=== PATIENT | female | born 1935 | race Caucasian/White ===

== ENCOUNTER 2018-08-14 16:20 | Inpatient (IN) | payer OTHER, MEDICARE ==
--- NOTE | 2018-08-14 16:41 | PDOC ---
Rapid Medical Evaluation Time Seen by Provider: 08/14/18 16:35 Medical Evaluation: I have performed a brief in-person evaluation of this patient. The patient presents with a chief complaint of: SOB. Was discharged from [facility] last week for COPD/CHF/cirrhosis of the liver. SHe states she hasn't gotten any better. She admits to swollen legs and abd distention. Pertinent physical exam findings: abdominal distention. Patient appears jaudice and pale. 2+ pitting edema b/l LEs. Slight expiratory wheezing at bases. I have ordered the following: labs, CXR The patient will proceed to the ED for further evaluation. Discharge Disposition - Diagnosis Shortness of breath - Referrals Referrals: Bhupinder Arroyo MD [Primary Care Provider] - - Patient Instructions - Post Discharge Activity
[2018-08-14] MEDS ORDERED: ALBUTEROL SO4 2.5/IPRATROPIUM 0.5 INH SOL 3 ML VIAL.NEB. NEB ONE ×2 (17:05→17:42)
[2018-08-14] MEDS: ALBUTEROL SO4 2.5/IPRATROPIUM 0.5 INH SOL 3 ML VIAL.NEB. NEB SCH ×2 (17:07→18:00)
[2018-08-14 17:24] LABS: BASO % 0.2 % (0-2.0); EOS % 0.1 % (0-4.5); HEMATOCRIT 37.1 % (32.4-45.2); HEMOGLOBIN 11.8 GM/dL (10.7-15.3); LYMPH % 5.7 % (8-40); MCH 27.4 pg (25.7-33.7); MCHC 31.9 g/dl (32.0-36.0); MEAN CELL VOLUME 85.9 fl (80-96); MONO % 2.3 % (3.8-10.2); NEUT % 91.7 % (42.8-82.8); RBC 4.32 M/mm3 (3.60-5.2); RDW 18.2 % (11.6-15.6); WHITE BLOOD COUNT 12.5 K/mm3 (4.0-10.0)
[2018-08-14 17:42] LABS: ALBUMIN 2.9 g/dl (3.4-5.0); ALK PHOS 128 U/L (45-117); ANION GAP 6 MMOL/L (8-16); BLOOD UREA NITROGEN 37 mg/dL (7-18); CALCIUM 8.3 mg/dL (8.5-10.1); CHLORIDE 101 mmol/L (98-107); CO2 27 mmol/L (21-32); GLUCOSE,RANDOM 173 mg/dL (74-106); N-TERMINAL BNP 663.8 pg/ml (5-450); POTASSIUM 4.9 mmol/L (3.5-5.1); SGOT/AST 52 U/L (15-37); SGPT/ALT 86 U/L (13-61); SODIUM 135 mmol/L (136-145); TOT PROT 5.9 g/dl (6.4-8.2)
[2018-08-14 17:59] LABS: ANISOCYTOSIS 1+; PLATELET ESTIMATE SLT DECREASE
[2018-08-14] MEDS ORDERED: methylPREDNISolone NA SUCC 125 MG/2 ML VIAL IVPB ONE (18:01)
--- NOTE | 2018-08-14 18:28 | PDOC ---
Attending Attestation - Resident Resident Name: Sa Bellaira - ED Attending Attestation I have performed the following: I have examined & evaluated the patient, The case was reviewed & discussed with the resident, I agree w/resident's findings & plan, Exceptions are as noted - HPI HPI: 08/14/18 18:40 83F with h/o COPD, cirrhosis, CHF, IDDM, hypothyroidism, and arthritis who presents to the ED with shortness of breath. Pt reports abdominal distension and swelling of lower extremities bilaterally. She reports that this has been worsening over several weeks. She was recently admitted to [place] and was tx'ed for COPD and CHF. Pt states that this feels similar to her COPD exacerbations, though she also endorses worsening leg swelling. Denies F/C. Denies abdominal pain. Denies CP. - Physicial Exam PE: 08/14/18 18:40 "GENERAL: Awake, alert, and fully oriented, in no acute distress. HEAD: No signs of trauma EYES: PERRLA, EOMI, sclera anicteric, conjunctiva clear ENT: Auricles normal inspection, hearing grossly normal, nares patent, oropharynx clear without exudates. Moist mucosa NECK: Nontender, no stepoffs, Normal ROM, supple, no lymphadenopathy, JVD, or masses LUNGS: + bilateral expiratory wheezes HEART: Regular rate and rhythm, normal S1 and S2, no murmurs, rubs or gallops ABDOMEN: Soft, nontender, normoactive bowel sounds. No guarding, no rebound. No masses EXTREMITIES: 2+ PE BLE NEUROLOGICAL: Cranial nerves II through XII intact. 5/5 strength and sensation in all extremities, Normal speech, normal gait, normal cerebellar function SKIN: Warm, Dry, normal turgor, no rashes or lesions noted. - Critical Care Time Total Critical Care Time: 60 Critical Care Statement: The care of this patient involved high complexity decision making to prevent further life threatening deterioration of the patient 's condition and/or to evaluate & treat vital organ system(s) failure or risk of failure. - Medical Decision Making 08/14/18 18:41 83 F with SOB. Likely COPD exacerbation. Possible CHF component as well. Pt with h/o cirrhosis and ascites but no abdominal pain or tenderness on exam. - Labs, trop, BNP - CXR - Nebs, steroids - Admit 08/14/18 18:55 Pt reporting dark stools Rectal exam with dark stool, guaiac + Given h/o cirrhosis, will start protonix gtt and give octreotide for possible variceal bleed Will consult GI
[2018-08-14 18:54] LABS: INR 1.08 (0.83-1.09); PROTHROMBIN TIME (PATIENT) 12.8 SEC (9.7-13.0)
[2018-08-14 18:56] LABS: ACTIVATED PTT 23.8 SECONDS (25.2-36.5)
[2018-08-14] MEDS ORDERED: methylPREDNISolone NA SUCC 125 MG/2 ML VIAL ONE (18:58)
--- NOTE | 2018-08-14 19:12 | PDOC ---
History of Present Illness - General Stated Complaint: SENT BY PCP Time Seen by Provider: 08/14/18 16:35 History Source: Patient, Family (son) Exam Limitations: No Limitations - History of Present Illness Initial Comments: 08/14/18 19:07 HPI: Pt is an 83yo f with PMH of cirrhosis, fatty liver, COPD, CHF, DM, asthma, CABG sent to ED from Dr. Hernandez's office for evaluation of fluid overload. Pt was recently discharged from [facility] 4-5 days ago for COPD exacerbation/CHF. While she was there she was told she has cirrhosis. She was given GI follow up. Patient said her chief complaint then was SOB and she presents today with complaints of SOB. She first went to Dr. Hernandez's office today. She admits to frontal headaches which have been chronic and abdominal distension which has decreased since her discharge from [place]. She also admits to chronic diarrhea which she says is dark. She denies chest pain, abdominal pain, n/v, focal neurological deficits. She is not taking any anticoagulants. PCP: Dr. Cota Rate Engineer: Dr. Hernandez PMH: As per HPI. PSH: CABG, cholecystectomy Meds: ASA 81, Lipitor 10, Symbicort, Metformin, Carvedilol, Lasix Allergies: PCN Past History - Past Medical History Allergies/Adverse Reactions: Allergies Allergy/AdvReac Type Severity Reaction Status Date / Time Penicillins Allergy Verified 08/14/18 16:56 Home Medications: Ambulatory Orders Aspirin 81 mg PO DAILY 08/14/18 Atorvastatin Ca [Lipitor] 10 mg PO HS 08/14/18 Budesonide [Pulmicort 0.25 mg -] 1 neb PO BID 08/14/18 Carvedilol [Coreg -] 3.125 mg PO BID 08/14/18 Cholecalciferol (Vitamin D3) [Vitamin D3] 1,000 unit PO DAILY 08/14/18 Furosemide 40 mg PO DAILY 08/14/18 Insulin Glargine,Hum.rec.anlog [Lantus] 100 unit SQ HS 08/14/18 Insulin Lispro [Humalog] 6 units SQ ASDIR 08/14/18 Levothyroxine [Synthroid -] 125 mcg PO DAILY 08/14/18 Magnesium Oxide [Mag-Oxide] 400 mg PO BID 10/02/18 Metformin HCl [Metformin HCl ER] 1,000 mg PO DAILY 08/14/18 Prednisone 10 mg PO DAILY 08/14/18 Repaglinide 1 mg PO HS 08/14/18 Asthma: Yes COPD: Yes DVT: No Diabetes: Yes (IDDM - GLAUCOMA) Liver Disease: Yes (CIRROSSIS) Thyroid Disease: Yes Other medical history: ARTHRITIS - Surgical History Cardiac Surgery: Yes (W/ STENTS) - Immunization History Immunization Up to Date: Yes - Suicide/Smoking/Psychosocial Hx Smoking History: Never smoked Hx Alcohol Use: No Drug/Substance Use Hx: No Substance Use Type: None Review of Systems - Review of Systems Comments:: 08/14/18 19:16 ROS: Constitutional: No fevers, chills, fatigue HEENT: No Rhinorrhea, nasal congestion, visual changes, headache, sore throat, Cardiovascular: Bilateral pitting edema. No chest pain, syncope, palpitations, lightheadedness, Respiratory: SOB. No Cough, no hemoptysis Gastrointestinal: Abdominal distension, diarrhea, melena. No Abdominal pain, Nausea, Vomiting, Constipation, Genitourinary: No Dysuria, Frequency, Urgency, Hesitancy, Hematuria, Flank pain , incontinence Musculoskeletal: No Myalgia, arthralgia, ROM, joint stiffness, weakness, Skin: Jaundice. Neurologic: No Headache, Dizziness, Numbness, Weakness, or Tingling Hematologic: bruises *Physical Exam - Vital Signs Last Vital Signs Temp Pulse Resp BP Pulse Ox 97.5 F L 92 H 15 103/34 L 100 08/14/18 16:33 08/14/18 16:33 08/14/18 16:33 08/14/18 16:33 08/14/18 18:33 - Physical Exam Comments: 08/14/18 19:19 Physical Exam: Pt sitting in bed comfortably General Appearance: Nourished. No Apparent Distress HEENT: Atraumatic, normocephalic, EOMI, LACEY, Normal Tympanic Membranes. No Conjunctival Injection, Scleral Icterus, Pharyngeal Erythema, Tonsillar Exudate, Tonsillar Erythema. Neck: No Cervical Lymphadenopathy, No tracheal deviation Respiratory/Chest: Wheezing bilaterally. Cardiovascular: Irregularly irregular. Bilateral 2+ pitting edema up to the knees. Peripheral pulses palpable bilaterally. No JVD, Murmur, Gallops, Rubs, Carotid Bruit Gastrointestinal/Abdominal: Distended. Normal Bowel Sounds, Soft. No Guarding, Rebound, Tenderness Musculoskeletal: Full ROM No CVA Tenderness, No calf tenderness, No joint swelling Extremity: Normal Capillary Refill Integumentary: Jaundiced. Dry, Warm. Bruising noted on upper arms. Neurologic: staff anesthesiologist II-XII NML intact, Fully Oriented, Alert, Normal Mood/Affect, Normal Response, Motor Strength 5/5, Full sensation. Rectal: Normal sphincter tone, internal hemarrhiods possibly. No gross blood on glove. Positive FOBT ED Treatment Course - LABORATORY CBC & Chemistry Diagram: 08/14/18 17:03 08/14/18 17:03 - ADDITIONAL ORDERS Additional order review: Laboratory Results 08/14/18 08/14/18 08/14/18 18:36 17:03 17:03 Sodium 135 L Potassium 4.9 Chloride 101 Carbon Dioxide 27 Anion Gap 6 L BUN 37 H Creatinine 1.0 Creat Clearance w eGFR 52.69 Random Glucose 173 H Calcium 8.3 L Total Bilirubin 1.0 AST 52 H ALT 86 H Alkaline Phosphatase 128 H Ammonia 24.90 Creatine Kinase 95 Troponin I < 0.02 B-Natriuretic Peptide 663.8 H Total Protein 5.9 L Albumin 2.9 L Stool Occult Blood Positive 08/14/18 17:03 RBC 4.32 MCV 85.9 MCHC 31.9 L RDW 18.2 H MPV No Result Required. Neutrophils % 91.7 H Lymphocytes % 5.7 L Monocytes % 2.3 L Eosinophils % 0.1 Basophils % 0.2 - Medications Given in the ED: ED Medications Discontinued Medications Generic Name Dose Route Start Last Admin Trade Name Freq PRN Reason Stop Dose Admin Albuterol/Ipratropium 1 amp 08/14/18 16:45 08/14/18 18:00 Duoneb - NEB 08/14/18 17:31 1 amp Q15M DAFNE Administration Medical Decision Making - Medical Decision Making 08/14/18 19:22 83yo F PMH of cirrhosis, COPD, CHF, CABG, DM, sent from Dr office for further evalution. Pt has SOB, abdominal distension, jaundiced, stool occult positive Vitals: on arrival: 103/ HR afebrile DDx: CHF exacerbation, COPD exacerbation, cirrhosis, UGIB Recheck vitals: 122/68, Hr 90s O2 99. Labs: Hbg 11 (no priors) WBC 12 (pt is on steroids). EKG: CXR: Will defer CT scan at this time due to pt not having any abdominal complaints. *DC/Admit/Observation/Transfer Diagnosis at time of Disposition: Shortness of breath - Referrals Referrals: Bhupinder Arroyo MD [Staff Physician] - - Patient Instructions - Post Discharge Activity
[2018-08-14 19:13] LABS: MAGNESIUM 2.5 mg/dL (1.8-2.4); N-TERMINAL BNP 733.1 pg/ml (5-450); PHOSPHOROUS 3.3 mg/dL (2.5-4.9)
[2018-08-14 19:52] LABS: URINE APPEARANCE CLEAR; URINE BILIRUBIN NEGATIVE (<2.0 mg/dL); URINE COLOR STRAW; URINE GLUCOSE (UA) NEGATIVE (NEGATIVE); URINE KETONE NEGATIVE (NEGATIVE); URINE LEUK ESTERASE NEGATIVE (NEGATIVE); URINE NITRITE NEGATIVE (NEGATIVE); URINE PROTEIN NEGATIVE (NEGATIVE); URINE UROBILINOGEN NEGATIVE mg/dL (0.2-1.0)
--- NOTE | 2018-08-14 21:02 | PN ---
Teaching Attending Note Name of Resident: Lenny Mullins ATTENDING PHYSICIAN STATEMENT I saw and evaluated the patient. I reviewed the resident's note and discussed the case with the resident. I agree with the resident's findings and plan as documented. SUBJECTIVE: Patient is an 83 year old woman with PMH of cirrhosis, fatty liver, COPD, CHF, DM, asthma, CABG sent to ER from Dr. Hernandez's office for evaluation of fluid overload. She was recently discharged from [facility] 4-5 days ago for COPD exacerbation/CHF. While she was there she was told she has cirrhosis. She was given GI follow up. Patient said her chief complaint then was SOB and she presents today with complaints of SOB. She first went to Dr. Hernandez's office today. She admits to frontal headaches which have been chronic and abdominal distension which has decreased since her discharge from [facility]. She also admits to chronic diarrhea which she says is dark. She denies chest pain, abdominal pain, nausea or dysuria. OBJECTIVE: Alert Vital Signs Period Temp Pulse Resp BP Sys/Carrion Pulse Ox Last 24 Hr 97.5 F 92 15 103/34 100-100 HEENT: No Jaundice, eye redness or discharge, PERRLA, EOMI. Normocephalic, atraumatic. External ears are normal and hearing is grossly intact. No nasal discharge. Neck: Supple, nontender. No palpable adenopathy or thyromegaly. No JVD Chest: Good effort. Clear to auscultation and percussion. Heart: Regular. No S3, rub or murmur Abdomen: Not distended, soft, nontender and no HSM. No rebound or guarding. Normoactive bowel sounds. Ext: Peripheral pulses intact. No leg edema. Skin: Warm and dry. No petechiae, rash or ecchymosis. Neuro: Alert. Oriented x3. CN 2-12 grossly intact. Sensation grossly intact in all four extremities and DTR are symmetric. Current Medications Generic Name Dose Route Start Last Admin Trade Name Freq PRN Reason Stop Dose Admin Pantoprazole Sodium 80 mg/ 100 mls @ 10 mls/hr 08/14/18 19:00 Sodium Chloride IVPB Q10H DAFNE 8 MG/HR Octreotide Acetate 1,200 mcg/ 500 mls @ 20.83 mls/hr 08/14/18 19:15 Dextrose IVPB ASDIR DAFNE 50 MCG/HR Home Medications Medication Instructions Recorded Aspirin 81 mg PO DAILY 08/14/18 Atorvastatin Ca [Lipitor] 10 mg PO HS 08/14/18 Budesonide [Pulmicort 0.25 mg -] 1 neb PO BID 08/14/18 Carvedilol [Coreg -] 3.125 mg PO BID 08/14/18 Cholecalciferol (Vitamin D3) 1,000 unit PO DAILY 08/14/18 [Vitamin D3] Furosemide 40 mg PO DAILY 08/14/18 Insulin Glargine,Hum.rec.anlog 100 unit SQ HS 08/14/18 [Lantus] Insulin Lispro [Humalog] 6 units SQ ASDIR 08/14/18 Levothyroxine [Synthroid -] 125 mcg PO DAILY 08/14/18 Magnesium Oxide [Mag-Oxide] 400 mg PO BID 08/14/18 Metformin HCl [Metformin HCl ER] 1,000 mg PO DAILY 08/14/18 Prednisone 10 mg PO DAILY 08/14/18 Repaglinide 1 mg PO HS 08/14/18 Abnormal Lab Results 08/14/18 08/14/18 08/14/18 17:03 17:03 18:20 WBC 12.5 H MCHC 31.9 L RDW 18.2 H Absolute Neuts (auto) 11.5 H Neutrophils % 91.7 H Neutrophils % (Manual) 88.0 H Lymphocytes % 5.7 L Monocytes % 2.3 L Monocytes % (Manual) 3 L PTT (Actin FS) Sodium 135 L Anion Gap 6 L BUN 37 H Random Glucose 173 H Calcium 8.3 L Magnesium 2.5 H AST 52 H ALT 86 H Alkaline Phosphatase 128 H B-Natriuretic Peptide 663.8 H 733.1 H Total Protein 5.9 L Albumin 2.9 L 08/14/18 18:20 WBC MCHC RDW Absolute Neuts (auto) Neutrophils % Neutrophils % (Manual) Lymphocytes % Monocytes % Monocytes % (Manual) PTT (Actin FS) 23.8 L Sodium Anion Gap BUN Random Glucose Calcium Magnesium AST ALT Alkaline Phosphatase B-Natriuretic Peptide Total Protein Albumin ASSESSMENT AND PLAN: 1. Fluid overload - 2. DM - For now, we will hold the home diabetes drugs and implement sliding scale insulin regimen. Provide comprehensive diabetes care with patient teaching and counseling about the importance of euglycemia, eye care and foot care. 3. Obesity - Will provide patient all the necessary assistance , counseling and positive reinforcement to facilitate weight loss. Consult painter ordnance. 4. DVT prophylaxis - Lovenox 40 mg SQ q 24 hours. 5. Advance directives - Full code
[2018-08-14] MEDS: PANTOPRAZOLE SODIUM 80 MG in SODIUM CHLORIDE 100 ML IVPB SCH (22:20)
[2018-08-14] MEDS: OCTREOTIDE ACETATE 1,200 MCG in DEXTROSE 5%-WATER - 488 ML IVPB SCH (22:35)
[2018-08-14] MEDS: CARVEDILOL 3.125 MG TABLET (FP) PO SCH (22:47)
[2018-08-14] MEDS: ATORVASTATIN CA 10 MG TABLET (FP) PO SCH (22:48)
[2018-08-14] MEDS: methylPREDNISolone NA SUCC 40 MG/1 ML VIAL IVPUSH SCH (22:50)
[2018-08-14] MEDS: HEPARIN NA (PORCINE) 5,000 UNITS/ML 1ML VIAL SQ SCH (23:00)
[2018-08-14] MEDS ORDERED: ATORVASTATIN CA 10 MG TABLET (FP) ONE (23:32)
[2018-08-14] MEDS ORDERED: CARVEDILOL 3.125 MG TABLET (FP) ONE (23:32)
[2018-08-14] MEDS ORDERED: INSULIN (LEVEMIR) 100 UNITS/ML UNITS SQ ONE (23:33)
[2018-08-14] MEDS ORDERED: methylPREDNISolone NA SUCC 40 MG/1 ML VIAL ONE (23:33)
[2018-08-14] MEDS ORDERED: HEPARIN NA (PORCINE) 5,000 UNITS/ML 1ML VIAL ONE (23:33)
[2018-08-14] MEDS ORDERED: INSULIN (NOVOLOG) ASPART 100 UNITS/ML 10ML VIAL ONE (23:35)
[2018-08-14] MEDS: INSULIN (LEVEMIR) 100 UNITS/ML UNITS SQ SCH (23:48)
[2018-08-14] MEDS: INSULIN SLIDING SCALE (NOVOLOG) 1 VIAL SQ SCH (23:49)
[2018-08-14] MEDS: BUDESONIDE 0.25 MG/2ML INH SUSP VIAL NEB SCH (23:50)
[2018-08-14] MEDS ORDERED: PANTOPRAZOLE SODIUM 40 MG VIAL ONE (23:51)
[2018-08-15] MEDS: PANTOPRAZOLE SODIUM 80 MG in SODIUM CHLORIDE 100 ML IVPB SCH ×2 (04:35→14:55)
[2018-08-15] MEDS: methylPREDNISolone NA SUCC 40 MG/1 ML VIAL IVPUSH SCH ×4 (04:35→21:24)
[2018-08-15] MEDS: INSULIN (LEVEMIR) 100 UNITS/ML UNITS SQ SCH ×2 (06:23→21:29)
[2018-08-15] MEDS: INSULIN SLIDING SCALE (NOVOLOG) 1 VIAL SQ SCH ×4 (06:23→21:26)
[2018-08-15] MEDS ORDERED: LEVOTHYROXINE NA 100 MCG TABLET (FP) ONE (06:24)
[2018-08-15] MEDS ORDERED: LEVOTHYROXINE NA 25 MCG TABLET (FP) ONE (06:24)
[2018-08-15] MEDS ORDERED: LEVOTHYROXINE 100 MCG, LEVOTHYROXINE 25 MCG PO SCH (07:00)
[2018-08-15 08:17] LABS: ALBUMIN 2.5 g/dl (3.4-5.0); ALK PHOS 108 U/L (45-117); ANION GAP 12 MMOL/L (8-16); BLOOD UREA NITROGEN 35 mg/dL (7-18); CALCIUM 8.2 mg/dL (8.5-10.1); CHLORIDE 101 mmol/L (98-107); CO2 26 mmol/L (21-32); GLUCOSE,RANDOM 148 mg/dL (74-106); N-TERMINAL BNP 1187.7 pg/ml (5-450); POTASSIUM 4.5 mmol/L (3.5-5.1); SGOT/AST 34 U/L (15-37); SGPT/ALT 69 U/L (13-61); SODIUM 139 mmol/L (136-145); TOT PROT 5.3 g/dl (6.4-8.2)
--- NOTE | 2018-08-15 08:25 | HP ---
Admitting History and Physical - Admission History of Present Illness: 83yo f with PMH of cirrhosis, fatty liver, COPD, CHF, DM, asthma, CABG sent to ED from Dr. Hernandez's office for evaluation of fluid overload. Pt was recently discharged from [facility] 4-5 days ago for COPD exacerbation/CHF. While she was there she was told she has cirrhosis. She was given GI follow up. Patient said her chief complaint then was SOB and she presents today with complaints of SOB. She first went to Dr. Hernandez's office and sent to ER. She admits to frontal headaches which have been chronic and abdominal distension which has decreased since her discharge from [place]. She also admits to chronic diarrhea which she says is dark. She denies chest pain, abdominal pain, n/v, focal neurological deficits. She is not taking any anticoagulants. - Past Medical History Cardiovascular: Yes: CHF, HTN, Hyperlipdemia. No: AFIB Pulmonary: Yes: COPD Gastrointestinal: Yes: GERD Hepatobiliary: Yes: Cirrhosis ...: No Endocrine: Yes: Diabetes Mellitus - Smoking History Smoking history: Former smoker Have you smoked in the past 12 months: No - Alcohol/Substance Use Hx Alcohol Use: No Home Medications - Allergies Allergies/Adverse Reactions: Allergies Allergy/AdvReac Type Severity Reaction Status Date / Time Penicillins Allergy Verified 08/14/18 16:56 - Home Medications Home Medications: Ambulatory Orders Aspirin 81 mg PO DAILY 08/14/18 Atorvastatin Ca [Lipitor] 10 mg PO HS 08/14/18 Budesonide [Pulmicort 0.25 mg -] 1 neb PO BID 08/14/18 Carvedilol [Coreg -] 3.125 mg PO BID 08/14/18 Cholecalciferol (Vitamin D3) [Vitamin D3] 1,000 unit PO DAILY 08/14/18 Furosemide 40 mg PO DAILY 08/14/18 Insulin Glargine,Hum.rec.anlog [Lantus] 100 unit SQ HS 08/14/18 Insulin Lispro [Humalog] 6 units SQ ASDIR 08/14/18 Levothyroxine [Synthroid -] 125 mcg PO DAILY 08/14/18 Magnesium Oxide [Mag-Oxide] 400 mg PO BID 08/14/18 Metformin HCl [Metformin HCl ER] 1,000 mg PO DAILY 08/14/18 Prednisone 10 mg PO DAILY 08/14/18 Repaglinide 1 mg PO HS 08/14/18 Review of Systems - Review of Systems Cardiovascular: reports: Shortness of Breath Respiratory: reports: SOB, SOB on Exertion Gastrointestinal: reports: Bloating, Diarrhea Genitourinary: reports: No Symptoms Musculoskeletal: reports: Muscle Weakness Neurological: reports: Unsteady Gait, Weakness. denies: Change in LOC, Change in Speech, Confusion Physical Examination Vital Signs: Vital Signs Temperature 97.4 F L 08/15/18 03:47 Pulse Rate 80 08/15/18 03:47 Respiratory Rate 20 08/15/18 03:47 Blood Pressure 101/57 L 08/15/18 03:47 O2 Sat by Pulse Oximetry (%) 96 08/15/18 03:47 Cardiovascular: Yes: Pulse Irregular, S1, S2 Respiratory: Yes: On Nasal O2, Rales Gastrointestinal: Yes: Normal Bowel Sounds, Soft, Ascites, Distention. No: Tenderness Edema: Yes Neurological: Yes: Alert, Oriented, Weakness Labs: CBC, BMP 08/15/18 06:25 Problem List - Problems (1) CHF (congestive heart failure) Assessment/Plan: -IV LASIX -ECHO -TELE -CARDIO -FOLLOW LABS Code(s): I50.9 - HEART FAILURE, UNSPECIFIED (2) COPD (chronic obstructive pulmonary disease) Assessment/Plan: -NEBS -STEROIDS -PULM CONSULT Code(s): J44.9 - CHRONIC OBSTRUCTIVE PULMONARY DISEASE, UNSPECIFIED (3) Arrhythmia Assessment/Plan: -AFIB - EKG -TELE -CARDIO -Ac after gi eval -Echo Code(s): I49.9 - CARDIAC ARRHYTHMIA, UNSPECIFIED (4) Ascites Assessment/Plan: -DIURETICS GI CONSULT Code(s): R18.8 - OTHER ASCITES (5) Heme positive stool Assessment/Plan: -R/O GI BLEED -FOLLOW CBC -GI Code(s): R19.5 - OTHER FECAL ABNORMALITIES
[2018-08-15] MEDS ORDERED: BUDESONIDE 0.5 MG/2 ML INH SUSP VIAL NEB ONE (08:50)
[2018-08-15] MEDS: ALBUTEROL SO4 2.5/IPRATROPIUM 0.5 INH SOL 3 ML VIAL.NEB. NEB SCH ×4 (09:00→21:20)
[2018-08-15] MEDS: BUDESONIDE 0.25 MG/2ML INH SUSP VIAL NEB SCH ×2 (09:00→21:20)
[2018-08-15 09:32] LABS: BASO % 0.2 % (0-2.0); HEMATOCRIT 32.9 % (32.4-45.2); HEMOGLOBIN 10.5 GM/dL (10.7-15.3); LYMPH % 7.8 % (8-40); MCH 27.9 pg (25.7-33.7); MCHC 31.9 g/dl (32.0-36.0); MEAN CELL VOLUME 87.5 fl (80-96); MEAN PLT VOLUME 9.6 fl (7.5-11.1); MONO % 1.2 % (3.8-10.2); NEUT % 90.8 % (42.8-82.8); PLATELET COUNT 79 K/MM3 (134-434); RBC 3.76 M/mm3 (3.60-5.2); RDW 18.4 % (11.6-15.6); WHITE BLOOD COUNT 4.8 K/mm3 (4.0-10.0)
[2018-08-15] MEDS: FUROSEMIDE 40 MG/4 ML INJECTABLE VIAL IVPUSH SCH (10:37)
[2018-08-15] MEDS: CARVEDILOL 3.125 MG TABLET (FP) PO SCH ×2 (10:37→21:25)
[2018-08-15] MEDS: ASPIRIN 81 MG CHEWABLE TABLETS PO SCH (10:37)
[2018-08-15] MEDS: HEPARIN NA (PORCINE) 5,000 UNITS/ML 1ML VIAL SQ SCH ×2 (10:37→21:24)
[2018-08-15] MEDS ORDERED: PT OWN MED DRAWER 7, Y5N ONE ×2 (11:44→20:56)
--- NOTE | 2018-08-15 11:58 | EKG ---
Test Reason : Blood Pressure : / mmHG Vent. Rate : 090 BPM Atrial Rate : 234 BPM P-R Int : 000 ms QRS Dur : 064 ms QT Int : 352 ms P-R-T Axes : 000 -10 040 degrees QTc Int : 430 ms POOR DATA QUALITY, INTERPRETATION MAY BE ADVERSELY AFFECTED ATRIAL FIBRILLATION WITH PREMATURE VENTRICULAR OR ABERRANTLY CONDUCTED COMPLEXES SEPTAL INFARCT , AGE UNDETERMINED ABNORMAL ECG NO PREVIOUS ECGS AVAILABLE Confirmed by CAMI WINTERS, TAMI ([id number]) on 08/15/2018 11:58:36 AM Referred By: Confirmed By:TAMI ALMANZA MD
--- NOTE | 2018-08-15 12:58 | CONSULT ---
Consult Consult Specialty:: endocrine Referred by:: dr.annabi dao Reason for Consultation:: diabetes mellitus - History of Present Illness Chief Complaint: high sugars History of Present Illness: 83yo f with PMH of cirrhosis, fatty liver, COPD, CHF, DM, asthma, CABG sent to ED from Dr. Hernandez's office for evaluation of fluid overload. Pt was recently discharged from [facility] few days ago for COPD exacerbation/CHF. While she was there she was told she has cirrhosis. She was given GI follow up. Patient said her chief complaint then was SOB and she presents with complaints of SOB. she has difficulty controlling blood sugars with current medical therapy has high and low sugars.when she is on steroids her sugars always hgih - Past Medical History Cardio/Vascular: Yes: CHF, HTN, Hyperlipdemia. No: AFIB Pulmonary: Yes: COPD Gastrointestinal: Yes: GERD Hepatobiliary: Yes: Cirrhosis ...: No Endocrine: Yes: Diabetes Mellitus - Alcohol/Substance Use Hx Alcohol Use: No - Smoking History Smoking history: Former smoker Have you smoked in the past 12 months: No Home Medications - Allergies Allergies/Adverse Reactions: Allergies Allergy/AdvReac Type Severity Reaction Status Date / Time Penicillins Allergy Verified 08/14/18 16:56 - Home Medications Home Medications: Ambulatory Orders Aspirin 81 mg PO DAILY 08/14/18 Atorvastatin Ca [Lipitor] 10 mg PO HS 08/14/18 Budesonide [Pulmicort 0.25 mg -] 1 neb PO BID 08/14/18 Carvedilol [Coreg -] 3.125 mg PO BID 08/14/18 Cholecalciferol (Vitamin D3) [Vitamin D3] 1,000 unit PO DAILY 08/14/18 Furosemide 40 mg PO DAILY 08/14/18 Insulin Glargine,Hum.rec.anlog [Lantus] 100 unit SQ HS 08/14/18 Insulin Lispro [Humalog] 6 units SQ ASDIR 08/14/18 Levothyroxine [Synthroid -] 125 mcg PO DAILY 08/14/18 Magnesium Oxide [Mag-Oxide] 400 mg PO BID 08/14/18 Metformin HCl [Metformin HCl ER] 1,000 mg PO DAILY 08/14/18 Prednisone 10 mg PO DAILY 08/14/18 Repaglinide 1 mg PO HS 08/14/18 Review of Systems - Review of Systems Constitutional: reports: Weakness Eyes: reports: Blurred Vision HENT: reports: No Symptoms Neck: reports: No Symptoms Cardiovascular: reports: Shortness of Breath Respiratory: reports: Exercise Intolerance, SOB, SOB on Exertion Gastrointestinal: reports: Bloating Genitourinary: reports: Frequency Musculoskeletal: reports: No Symptoms Neurological: reports: Weakness Endocrine: reports: Unexplained Weight Gain Physical Exam Vital Signs: Vital Signs Temperature 98.5 F 08/15/18 09:03 Pulse Rate 93 H 08/15/18 09:03 Respiratory Rate 20 08/15/18 09:03 Blood Pressure 120/53 L 08/15/18 09:03 O2 Sat by Pulse Oximetry (%) 99 08/15/18 09:00 Constitutional: Yes: Anxious Eyes: Yes: EOM Intact HENT: Yes: Normocephalic Neck: Yes: Trachea Midline Cardiovascular: Yes: Tachycardia Respiratory: Yes: On Nasal O2, Rhonchi, Tachypnea, Wheezes Gastrointestinal: Yes: Normal Bowel Sounds ...Rectal Exam: Yes: Deferred Renal/: Yes: WNL Extremities: Yes: WNL Edema: No Neurological: Yes: Alert, Oriented Labs: CBC, BMP 08/15/18 06:25 08/15/18 06:25 Assessment/Plan Current Active Problems Arrhythmia (Acute) Ascites (Acute) CHF (congestive heart failure) (Acute) COPD (chronic obstructive pulmonary disease) (Acute) Heme positive stool (Acute) Shortness of breath (Acute) Abnormal Lab Results 08/14/18 08/14/18 08/14/18 17:03 17:03 18:20 WBC 12.5 H Hgb MCHC 31.9 L RDW 18.2 H Plt Count Absolute Neuts (auto) 11.5 H Neutrophils % 91.7 H Neutrophils % (Manual) 88.0 H Lymphocytes % 5.7 L Monocytes % 2.3 L Monocytes % (Manual) 3 L PTT (Actin FS) Sodium 135 L Anion Gap 6 L BUN 37 H Random Glucose 173 H Hemoglobin A1c % Calcium 8.3 L Magnesium 2.5 H AST 52 H ALT 86 H Alkaline Phosphatase 128 H B-Natriuretic Peptide 663.8 H 733.1 H Total Protein 5.9 L Albumin 2.9 L 08/14/18 08/15/18 08/15/18 18:20 06:25 06:25 WBC Hgb 10.5 L MCHC 31.9 L RDW 18.4 H Plt Count 79 L Absolute Neuts (auto) Neutrophils % 90.8 H Neutrophils % (Manual) Lymphocytes % 7.8 L D Monocytes % 1.2 L Monocytes % (Manual) PTT (Actin FS) 23.8 L Sodium Anion Gap BUN 35 H Random Glucose 148 H Hemoglobin A1c % Calcium 8.2 L Magnesium AST ALT 69 H Alkaline Phosphatase B-Natriuretic Peptide 1187.7 H Total Protein 5.3 L Albumin 2.5 L 08/15/18 06:25 WBC Hgb MCHC RDW Plt Count Absolute Neuts (auto) Neutrophils % Neutrophils % (Manual) Lymphocytes % Monocytes % Monocytes % (Manual) PTT (Actin FS) Sodium Anion Gap BUN Random Glucose Hemoglobin A1c % 8.7 H Calcium Magnesium AST ALT Alkaline Phosphatase B-Natriuretic Peptide Total Protein Albumin Laboratory Results - last 24 hr 08/14/18 08/14/18 08/14/18 17:03 17:03 17:03 WBC 12.5 H RBC 4.32 Hgb 11.8 Hct 37.1 MCV 85.9 MCH 27.4 MCHC 31.9 L RDW 18.2 H Plt Count MPV No Result Required. Absolute Neuts (auto) 11.5 H Total Counted 100 Neutrophils % 91.7 H Neutrophils % (Manual) 88.0 H Band Neutrophils % 1.0 Lymphocytes % 5.7 L Lymphocytes % (Manual) 8.0 Monocytes % 2.3 L Monocytes % (Manual) 3 L Eosinophils % 0.1 Basophils % 0.2 Nucleated RBC % 0 Differential Comment Man diff performed Platelet Estimate Slt decrease Platelet Comment Anisocytosis 1+ PT with INR INR PTT (Actin FS) Sodium 135 L Potassium 4.9 Chloride 101 Carbon Dioxide 27 Anion Gap 6 L BUN 37 H Creatinine 1.0 Creat Clearance w eGFR 52.69 POC Glucometer Random Glucose 173 H Hemoglobin A1c % Calcium 8.3 L Phosphorus Magnesium Ferritin Total Bilirubin 1.0 AST 52 H ALT 86 H Alkaline Phosphatase 128 H Ammonia 24.90 Creatine Kinase 95 Troponin I < 0.02 B-Natriuretic Peptide 663.8 H Total Protein 5.9 L Albumin 2.9 L Urine Color Urine Appearance Urine pH Ur Specific Winder Urine Protein Urine Glucose (UA) Urine Ketones Urine Blood Urine Nitrite Urine Bilirubin Urine Urobilinogen Ur Leukocyte Esterase Stool Occult Blood 08/14/18 08/14/18 08/14/18 18:20 18:20 18:36 WBC RBC Hgb Hct MCV MCH MCHC RDW Plt Count MPV Absolute Neuts (auto) Total Counted Neutrophils % Neutrophils % (Manual) Band Neutrophils % Lymphocytes % Lymphocytes % (Manual) Monocytes % Monocytes % (Manual) Eosinophils % Basophils % Nucleated RBC % Differential Comment Platelet Estimate Platelet Comment Anisocytosis PT with INR 12.80 INR 1.08 PTT (Actin FS) 23.8 L Sodium Potassium Chloride Carbon Dioxide Anion Gap BUN Creatinine Creat Clearance w eGFR POC Glucometer Random Glucose Hemoglobin A1c % Calcium Phosphorus 3.3 Magnesium 2.5 H Ferritin Total Bilirubin AST ALT Alkaline Phosphatase Ammonia Creatine Kinase Troponin I B-Natriuretic Peptide 733.1 H Total Protein Albumin Urine Color Urine Appearance Urine pH Ur Specific Winder Urine Protein Urine Glucose (UA) Urine Ketones Urine Blood Urine Nitrite Urine Bilirubin Urine Urobilinogen Ur Leukocyte Esterase Stool Occult Blood Positive 08/14/18 08/14/18 08/15/18 19:40 23:18 02:11 WBC RBC Hgb Hct MCV MCH MCHC RDW Plt Count MPV Absolute Neuts (auto) Total Counted Neutrophils % Neutrophils % (Manual) Band Neutrophils % Lymphocytes % Lymphocytes % (Manual) Monocytes % Monocytes % (Manual) Eosinophils % Basophils % Nucleated RBC % Differential Comment Platelet Estimate Platelet Comment Anisocytosis PT with INR INR PTT (Actin FS) Sodium Potassium Chloride Carbon Dioxide Anion Gap BUN Creatinine Creat Clearance w eGFR POC Glucometer [id number] Random Glucose Hemoglobin A1c % Calcium Phosphorus Magnesium Ferritin Total Bilirubin AST ALT Alkaline Phosphatase Ammonia Creatine Kinase 72 Troponin I 0.02 B-Natriuretic Peptide Total Protein Albumin Urine Color Straw Urine Appearance Clear Urine pH 7.0 Ur Specific Winder 1.009 Urine Protein Negative Urine Glucose (UA) Negative Urine Ketones Negative Urine Blood Negative Urine Nitrite Negative Urine Bilirubin Negative Urine Urobilinogen Negative Ur Leukocyte Esterase Negative Stool Occult Blood 08/15/18 08/15/18 08/15/18 06:21 06:25 06:25 WBC 4.8 RBC 3.76 Hgb 10.5 L Hct 32.9 MCV 87.5 MCH 27.9 MCHC 31.9 L RDW 18.4 H Plt Count 79 L MPV 9.6 Absolute Neuts (auto) 4.4 Total Counted Neutrophils % 90.8 H Neutrophils % (Manual) Band Neutrophils % Lymphocytes % 7.8 L D Lymphocytes % (Manual) Monocytes % 1.2 L Monocytes % (Manual) Eosinophils % 0.0 D Basophils % 0.2 Nucleated RBC % 0 Differential Comment Platelet Estimate Platelet Comment No clumping noted Anisocytosis PT with INR INR PTT (Actin FS) Sodium 139 Potassium 4.5 Chloride 101 Carbon Dioxide 26 Anion Gap 12 BUN 35 H Creatinine 1.0 Creat Clearance w eGFR 52.69 POC Glucometer 165 Random Glucose 148 H Hemoglobin A1c % Calcium 8.2 L Phosphorus Magnesium Ferritin 224.6 Total Bilirubin 1.0 AST 34 ALT 69 H Alkaline Phosphatase 108 Ammonia Creatine Kinase 68 Troponin I < 0.02 B-Natriuretic Peptide 1187.7 H Total Protein 5.3 L Albumin 2.5 L Urine Color Urine Appearance Urine pH Ur Specific Winder Urine Protein Urine Glucose (UA) Urine Ketones Urine Blood Urine Nitrite Urine Bilirubin Urine Urobilinogen Ur Leukocyte Esterase Stool Occult Blood 08/15/18 08/15/18 08/15/18 06:25 06:25 11:42 WBC RBC Hgb Hct MCV MCH MCHC RDW Plt Count MPV Absolute Neuts (auto) Total Counted Neutrophils % Neutrophils % (Manual) Band Neutrophils % Lymphocytes % Lymphocytes % (Manual) Monocytes % Monocytes % (Manual) Eosinophils % Basophils % Nucleated RBC % Differential Comment Platelet Estimate Platelet Comment Anisocytosis PT with INR INR PTT (Actin FS) Sodium Potassium Chloride Carbon Dioxide Anion Gap BUN Creatinine Creat Clearance w eGFR POC Glucometer 182 Random Glucose Hemoglobin A1c % 8.7 H Calcium Phosphorus Magnesium Ferritin Cancelled Total Bilirubin AST ALT Alkaline Phosphatase Ammonia Creatine Kinase Troponin I B-Natriuretic Peptide Total Protein Albumin Urine Color Urine Appearance Urine pH Ur Specific Winder Urine Protein Urine Glucose (UA) Urine Ketones Urine Blood Urine Nitrite Urine Bilirubin Urine Urobilinogen Ur Leukocyte Esterase Stool Occult Blood plan: bgm qid novolog insulin high level tolerance when on steroid novolog 70/30 bid while on steroids
--- NOTE | 2018-08-15 13:45 | EKG ---
Test Reason : Blood Pressure : / mmHG Vent. Rate : 069 BPM Atrial Rate : 326 BPM P-R Int : 000 ms QRS Dur : 074 ms QT Int : 416 ms P-R-T Axes : 000 -02 053 degrees QTc Int : 445 ms ATRIAL FIBRILLATION ABNORMAL ECG WHEN COMPARED WITH ECG OF 14-AUG-2018 20:10, NO SIGNIFICANT CHANGE WAS FOUND Confirmed by TAMI ALMANZA MD ([id number]) on 08/15/2018 1:45:13 PM Referred By: ERLIN PEREZ DR Confirmed By:TAMI ALMANZA MD
--- NOTE | 2018-08-15 14:44 | CON.CARD ---
Consult Consult Specialty:: Cardiology Referred by:: Dr Patel Reason for Consultation:: Atrial fibrillation - History of Present Illness Chief Complaint: sent for fluid overload, sob, edema. History of Present Illness: She is an 83yo f with history of cirrhosis, fatty liver, COPD, chronic diastolic CHF, DM, asthma, CABG 2016 at [facility] (sees Dr Oropeza) sent to ED from Dr. Hernandez's office for evaluation of fluid overload. Pt was recently discharged from [facility] 4-5 days ago for COPD exacerbation/CHF, diuresed but does not feel better. No chest pain, orthopnea. Edema is worse as is abdominal distension. Noted with atrial fibrillation on ECG. Not on AC. - History Source History Provided By: Patient, Medical Record - Past Medical History Cardio/Vascular: Yes: CHF, HTN, Hyperlipdemia. No: AFIB Pulmonary: Yes: COPD Gastrointestinal: Yes: GERD Hepatobiliary: Yes: Cirrhosis ...: No Endocrine: Yes: Diabetes Mellitus - Alcohol/Substance Use Hx Alcohol Use: No - Smoking History Smoking history: Former smoker Have you smoked in the past 12 months: No Home Medications - Allergies Allergies/Adverse Reactions: Allergies Allergy/AdvReac Type Severity Reaction Status Date / Time Penicillins Allergy Verified 08/14/18 16:56 - Home Medications Home Medications: Ambulatory Orders Aspirin 81 mg PO DAILY 08/14/18 Atorvastatin Ca [Lipitor] 10 mg PO HS 08/14/18 Budesonide [Pulmicort 0.25 mg -] 1 neb PO BID 08/14/18 Carvedilol [Coreg -] 3.125 mg PO BID 08/14/18 Cholecalciferol (Vitamin D3) [Vitamin D3] 1,000 unit PO DAILY 08/14/18 Furosemide 40 mg PO DAILY 08/14/18 Insulin Glargine,Hum.rec.anlog [Lantus] 100 unit SQ HS 08/14/18 Insulin Lispro [Humalog] 6 units SQ ASDIR 08/14/18 Levothyroxine [Synthroid -] 125 mcg PO DAILY 08/14/18 Magnesium Oxide [Mag-Oxide] 400 mg PO BID 08/14/18 Metformin HCl [Metformin HCl ER] 1,000 mg PO DAILY 08/14/18 Prednisone 10 mg PO DAILY 08/14/18 Repaglinide 1 mg PO HS 10/02/18 Review of Systems - Review of Systems Constitutional: reports: No Symptoms Eyes: reports: No Symptoms HENT: reports: No Symptoms Neck: reports: No Symptoms Cardiovascular: reports: Edema Respiratory: reports: SOB on Exertion Gastrointestinal: reports: Diarrhea, Nausea, Other (distension) Integumentary: reports: No Symptoms Neurological: reports: No Symptoms Vital Signs: Vital Signs Temperature 97.4 F L 08/15/18 13:48 Pulse Rate 80 08/15/18 13:48 Respiratory Rate 20 08/15/18 13:48 Blood Pressure 104/41 L 08/15/18 13:48 O2 Sat by Pulse Oximetry (%) 99 08/15/18 09:00 Constitutional: Yes: No Distress, Calm Eyes: Yes: Conjunctiva Clear, EOM Intact HENT: Yes: Atraumatic, Normocephalic Neck: Yes: Supple, Trachea Midline Respiratory: Yes: Wheezes (soft bilat expiratory.) Gastrointestinal: Yes: Ascites, Hepatomegaly, Hyperactive Bowel Sounds Cardiovascular: Yes: Pulse Irregular JVD: Yes Carotid Bruit: No PMI: Non-Displaced Heart Sounds: Yes: S1, S2 Edema: LLE: 1+, RLE: 1+ Peripheral Pulses WNL: Yes - Other Data Labs, Other Data: CBC, BMP 08/15/18 06:25 08/15/18 06:25 INR, PTT INR 1.08 (0.83-1.09) 08/14/18 18:20 Troponin, BNP 08/14/18 08/14/18 08/15/18 17:03 18:20 02:11 Troponin I < 0.02 0.02 B-Natriuretic Peptide 663.8 H 733.1 H 08/15/18 06:25 Troponin I < 0.02 B-Natriuretic Peptide 1187.7 H Troponin, BNP 08/14/18 08/14/18 08/15/18 17:03 18:20 02:11 Troponin I < 0.02 0.02 B-Natriuretic Peptide 663.8 H 733.1 H 08/15/18 06:25 Troponin I < 0.02 B-Natriuretic Peptide 1187.7 H Imaging - Results Chest X-ray: Report Reviewed (samir) EKG: Report Reviewed (afib) Assessment/Plan She is an 83yo f with history of cirrhosis, fatty liver, COPD, chronic diastolic CHF, DM, asthma, CABG 2016 at [facility] (sees Dr Oropeza) sent to ED from Dr. Hernandez's office for evaluation of fluid overload. Pt was recently discharged from [facility] 4-5 days ago for COPD exacerbation/CHF, diuresed but does not feel better. No chest pain, orthopnea. Edema is worse as is abdominal distension. Noted with atrial fibrillation on ECG. Not on AC. 1. CHF-told of EF 50% at [facility], not in CHF at present. -would diurese for cirrhosis related edema and ascites, add spironolactone 25 mg bid and increase as tolerated. -Echo done, results pending 2. CAD s/p CABG -stable without angina or CHF symptoms. 3. Atrial fibrillation -she denies history but would get records from recent admission to [facility]. -increase coreg by BP and HR. -would defer AC for now until GI/liver assesses the patient for bleeding risk.
--- NOTE | 2018-08-15 15:02 | ECHO ---
Version: 1 Name: JEFE MARY Exam: Adult Echocardiogram Study Date: 08/15/2018, 11:05 AM Age: 83 Years MMode/2D Measurements & Calculations IVSd: 0.70 cm LVIDs: 2.8 cm LVIDd: 4.1 cm LVPWd: 0.64 cm Ao root diam: 2.49 cm LA dimension: 3.7 cm Doppler Measurements & Calculations MV E max darien: 109.8 cm/sec Med E/e': 15.0 MV A max darien: 53.7 cm/sec Med Peak E' Darien: 7.3 cm/sec MV E/A: 2.05 Lat E/e': 11.5 Lat Peak E' Darien: 9.6 cm/sec MR max P.2 mmHg TR max darien: 229.4 cm/sec TR max P.6 mmHg Procedure A two-dimensional transthoracic echocardiogram with color flow and Doppler was performed. Left Ventricle The left ventricular size, thickness and function are normal. The left ventricular ejection fraction is normal. The left ventricular wall motion is normal. Right Ventricle The right ventricle is normal in size and function. Atria Normal left and right atrial size and function. Chiari network (normal variant) is noted. Mitral Valve There is mild mitral valve thickening. There is no mitral valve stenosis. There is mild to moderate mitral regurgitation. Tricuspid Valve There is mild to moderate tricuspid valve thickening. There is no tricuspid stenosis. There is moder ate tricuspid regurgitation. Right ventricular systolic pressure is elevated at 40-50mmHg. Aortic Valve The aortic valve is trileaflet. There is mild aortic valve thickening. There is mild to moderate aor tic sclerosis.;. No hemodynamically significant valvular aortic stenosis. No aortic regurgitation is pre sent. Pulmonic Valve The pulmonic valve is not well visualized. There is no pulmonic valvular stenosis. There is no pulmo alexa valvular regurgitation. Great Vessels The aortic root is normal size. Pericardium/Pleura There is no pericardial effusion. Summary Statements The left ventricular size, thickness and function are normal The left ventricular ejection fraction is normal. The left ventricular wall motion is normal. Chiari network (normal variant) is noted. There is mild aortic valve thickening. There is mild to moderate aortic sclerosis.; There is moderate tricuspid regurgitation. Right ventricular systolic pressure is elevated at 40-50mmHg. There is mild to moderate mitral regurgitation. MD Davy Iqbal 08/15/2018, 3:01 PM Ordering Physician: Wally Patel Referring Physician: ANGELICA RUIZ Performed By: Marissa Pozo
--- NOTE | 2018-08-15 15:52 | PN ---
Progress Note (short form) - Note Progress Note: PULMONARY CONSULTATION DICTATED 08/15/18 IMP DYSPNEA COPD EXACERBATION DIASTOLIC CHF H/O ASTHMA FLUID OVERLOAD IDDM HYPOTHYROID CIRRHOSIS PLAN IV LASIX O2 INHALED BRONCHODILATORS MEDROL DAILY WTS F/U CHEST X-RAYS GLYCEMIC CONTROL DR SEVERINO Problem List - Problems (1) Hypothyroid Code(s): E03.9 - HYPOTHYROIDISM, UNSPECIFIED (2) Arrhythmia Code(s): I49.9 - CARDIAC ARRHYTHMIA, UNSPECIFIED (3) Ascites Code(s): R18.8 - OTHER ASCITES (4) CHF (congestive heart failure) Code(s): I50.9 - HEART FAILURE, UNSPECIFIED (5) COPD (chronic obstructive pulmonary disease) Code(s): J44.9 - CHRONIC OBSTRUCTIVE PULMONARY DISEASE, UNSPECIFIED (6) Shortness of breath Code(s): R06.02 - SHORTNESS OF BREATH (7) Diabetes Code(s): E11.9 - TYPE 2 DIABETES MELLITUS WITHOUT COMPLICATIONS
--- NOTE | 2018-08-15 16:27 | CONS ---
PULMONARY CONSULTATION: DATE OF CONSULTATION: 08/15/2018 REFERRING PHYSICIAN: Carlitos Patel MD HISTORY: The patient is an 83-year-old white female with a past medical history of COPD, cirrhosis, fatty liver, chronic diastolic congestive heart failure, diabetes, asthma, and ASHD, status post CABG in 2016. She was recently hospitalized at [facility] 4 to 5 days prior to this admission secondary to COPD exacerbation and CHF. She was apparently diuresed and had a paracentesis with no significant improvement and was discharged home in stable condition. The patient went to see Dr. Proctor yesterday in the office at which time she was noted to have increasing shortness of breath, increasing lower extremity edema and abdominal distension at which time she was referred back to the emergency room. In the ER she was noted to be in atrial fibrillation on EKG. Of note she has not been on anticoagulation. The patient was admitted to the floor and she was started on Lasix as well as inhaled bronchodilators and steroids. She was evaluated by Dr. Plummer for a Cardiology consultation who felt that the patient most likely had fluid overload not in acute CHF and recommended diuresis. The patient has a history of tobacco use and quit greater than 40 years ago. She denies any occupational exposure to chemicals and fumes. She denies orthopnea or PND although complains of dyspnea with minimal exertion. She also noted increasing abdominal distension. PAST MEDICAL HISTORY: Again includes COPD, chronic diastolic heart failure, diabetes, asthma, ASHD, status post CABG in 2016, cirrhosis, and fatty liver. REVIEW OF SYSTEMS: Positive dyspnea on exertion with no chest pain and no palpitations. Positive abdominal bloating, abdominal distension, and positive lower extremity edema. CURRENT MEDICATIONS: Include Pulmicort via nebulizer, Solu-Medrol 40 q6, heparin, DuoNeb, Coreg, Lipitor, NovoLog, Levemir, Lasix IV, aldactone, aspirin, Octreotide, and Synthroid. PHYSICAL EXAMINATION: General: The patient is an elderly white female awake and alert in no acute respiratory distress. Vital Signs: She is currently afebrile, blood pressure 104/41, respiratory rate is 20, and O2 saturation is 99% on room air. HEENT: Normocephalic and atraumatic. Neck: Supple. Heart: Irregularly irregular. S1, S2. Chest: Diffuse bilateral wheezes throughout. Abdomen: Soft, bowel sounds are positive, and mildly distended. Extremities: Edema is 4+ bilaterally. : LABS: WBC 4.8, hemoglobin 10.5, hematocrit 32.9, and platelet count is 79,000. INR is 1.0, BUN 35, creatinine 1.0. EKG reveals atrial fibrillation with PVCs. IMPRESSION: Dyspnea multiple factors. 1. Chronic obstructive pulmonary disease exacerbation. 2. Likely congestive heart failure with fluid overload. 3. Diastolic hear failure. 4. Cirrhosis. 5. Diabetes. PLAN: IV Lasix, inhaled bronchodilators, supplemental O2, short course of corticosteroids, daily weights, and as per Cardiology. KELIN SEVERINO M.D. [id number]
[2018-08-15] MEDS: INSULIN (NOVOLOG MIX 70/30) 100 UNITS/ML MDV SQ SCH (16:53)
--- NOTE | 2018-08-15 19:29 | CONS ---
DATE OF CONSULTATION: 08/15/2018 HISTORY OF PRESENT ILLNESS: The patient is an 83-year-old female with a past medical history of CHF, hypertension, hyperlipidemia, COPD, diabetes, fatty liver disease, bypass surgery, who was admitted to the hospital with complaints of shortness of breath. She was recently discharged from [facility] for COPD exacerbation as well as congestive heart failure. While she was at [facility], she states she was told that she had liver cirrhosis. She denies being told that she had cirrhosis in the past; however, she was told that she had hepatic steatosis. It is unclear if she has had any full liver workup in the past. She currently denies any abdominal pain, nausea, vomiting, hematemesis, or bright red blood per rectum. She states that she has had dark stools for many years, which she has noticed intermittently. She had a colonoscopy in [address] Horton, which revealed polyps, which were removed and an upper endoscopy done many years prior to that, which she states is normal. She complains of lower extremity edema as well as abdominal bloating. PAST MEDICAL AND SURGICAL HISTORY: As listed in the HPI. ALLERGIES: PENICILLIN. SOCIAL HISTORY: She is a former smoker, does not drink or use drugs. FAMILY HISTORY: No history of GI or gynecological malignancy. HOME MEDICATIONS: Reviewed and include aspirin, atorvastatin, Pulmicort, carvedilol, vitamin D, furosemide, Lantus, levothyroxine, magnesium oxide, metformin, prednisone. REVIEW OF SYSTEMS: Negative except for pertinent positives listed in the HPI. PHYSICAL EXAMINATION: Vital Signs: Temperature 97, pulse 89, respiratory rate 12, blood pressure 113/ 51, pulse oximetry 99% on room air. General: Very pleasant female, in no acute distress. HEENT: Anicteric sclerae. Cardiovascular: S1, S2, regular rate and rhythm. Lungs: Bilaterally clear to auscultation. Abdomen: Soft and nontender with some tympany in the epigastrium and midabdomen. Extremities: Positive for edema. LABORATORY: White blood cell count on admission is 12.5, currently 4.8, hemoglobin 10.5, hematocrit 32, MCV 87, platelet count 79. INR is 1. Chemistry reveals a sodium of 139, potassium 4.5, BUN 35, creatinine 1, glucose 148, hemoglobin A1c is 8.7, AST 34, ALT 69, total bilirubin 1, ferritin 224, troponin is negative. BNP is over 1000. Albumin 2.5. Urine is negative. Stool for occult blood is positive. She has had an ultrasound of the abdomen, which revealed hyperechoic liver consistent with history of cirrhosis, status post cholecystectomy, mild biliary ductal dilatation of the CBD, and main pancreatic duct without any obvious obstruction. She also had an echocardiogram, which is not resulted at this time. 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 Other etiology of chronic liver disease should be excluded in this patient. Also with dark stool, gastrointestinal blood loss will need to be excluded considering she has underlying liver disease. RECOMMENDATIONS: MRCP to further evaluate the biliary tree and the pancreas and liver considering her pancreatic duct is mildly dilated. I ordered a complete serology for chronic and inherited liver disease to exclude any other etiology of her cirrhosis in addition to steatosis. I will also start her on Protonix 40 mg IV daily. She should be on rifaximin 550 mg p.o. b.i.d., avoid NSAIDs. Low-dose Tylenol can be used for pain. Follow up echocardiogram results. Continue diuresis and steroid nebulizers for her congestive heart failure and COPD. Daily weights, I's and O's. She will need a diagnostic upper endoscopy once her acute cardiopulmonary process has improved. A 2-gram sodium diet. This patient will be followed by the GI service. DO SILVIA BLAKE/[id number] MTDD
[2018-08-15] MEDS ORDERED: INSULIN (NOVOLOG) ASPART 100 UNITS/ML 10ML VIAL ONE (19:36)
[2018-08-15] MEDS: OCTREOTIDE ACETATE 1,200 MCG in DEXTROSE 5%-WATER - 488 ML IVPB SCH (19:59)
[2018-08-15] MEDS: SPIRONOLACTONE 25 MG TABLET (FP) PO SCH (21:24)
[2018-08-15] MEDS: ATORVASTATIN CA 10 MG TABLET (FP) PO SCH (21:25)
[2018-08-16] MEDS: PANTOPRAZOLE SODIUM 80 MG in SODIUM CHLORIDE 100 ML IVPB SCH ×2 (00:31→12:24)
[2018-08-16] MEDS: methylPREDNISolone NA SUCC 40 MG/1 ML VIAL IVPUSH SCH ×4 (02:48→21:56)
[2018-08-16 06:06] LABS: SERUM IRON SATURATION 42 % (15-55); TOTAL IRON BINDING CAPACITY 269 ug/dL (250-450); UIBC 155 ug/dL (118-369)
[2018-08-16] MEDS: INSULIN (NOVOLOG MIX 70/30) 100 UNITS/ML MDV SQ SCH (06:31)
[2018-08-16] MEDS: INSULIN (LEVEMIR) 100 UNITS/ML UNITS SQ SCH ×2 (06:31→21:57)
[2018-08-16] MEDS: INSULIN SLIDING SCALE (NOVOLOG) 1 VIAL SQ SCH ×4 (06:31→21:57)
[2018-08-16] MEDS: LEVOTHYROXINE NA 125 MCG TABLET (FP) PO SCH (06:36)
[2018-08-16] MEDS: ALBUTEROL SO4 2.5/IPRATROPIUM 0.5 INH SOL 3 ML VIAL.NEB. NEB SCH ×4 (07:24→20:29)
[2018-08-16] MEDS: BUDESONIDE 0.25 MG/2ML INH SUSP VIAL NEB SCH ×2 (07:24→20:29)
--- NOTE | 2018-08-16 09:04 | PN ---
GI Progress Note - Objective Vital Signs: Vital Signs Temperature 98.1 F 08/16/18 06:00 Pulse Rate 83 08/16/18 06:00 Respiratory Rate 18 08/16/18 06:00 Blood Pressure 128/64 08/16/18 06:00 O2 Sat by Pulse Oximetry (%) 95 08/15/18 21:00 Labs: CBC, BMP 08/15/18 06:25 08/15/18 18:00 INR, PTT INR 1.08 (0.83-1.09) 08/14/18 18:20
[2018-08-16] MEDS: CARVEDILOL 3.125 MG TABLET (FP) PO SCH ×2 (09:18→21:55)
[2018-08-16] MEDS: SPIRONOLACTONE 25 MG TABLET (FP) PO SCH ×2 (09:19→21:55)
[2018-08-16] MEDS: ASPIRIN 81 MG CHEWABLE TABLETS PO SCH (09:19)
[2018-08-16] MEDS: FUROSEMIDE 40 MG/4 ML INJECTABLE VIAL IVPUSH SCH (09:19)
[2018-08-16] MEDS: HEPARIN NA (PORCINE) 5,000 UNITS/ML 1ML VIAL SQ SCH ×2 (09:19→21:56)
[2018-08-16] MEDS: OCTREOTIDE ACETATE 1,200 MCG in DEXTROSE 5%-WATER - 488 ML IVPB SCH (09:21)
[2018-08-16] MEDS ORDERED: DEXTROSE 50%-WATER 25 GM/50 ML DISP.SYRIN IVPUSH PRN (11:06)
--- NOTE | 2018-08-16 11:12 | PN ---
Progress Note, Physician Chief Complaint: SOB COPD exacerbation - Current Medication List Current Medications: Active Medications Albuterol/Ipratropium (Duoneb -) 1 amp NEB RQID [facility] Last Admin: 08/16/18 07:24 Dose: 1 amp Aspirin (Asa -) 81 mg PO DAILY [facility] Last Admin: 08/16/18 09:19 Dose: 81 mg Atorvastatin Calcium (Lipitor -) 10 mg PO HS [facility] Last Admin: 08/15/18 21:25 Dose: 10 mg Budesonide (Pulmicort 0.25 Mg Nebulizer -) 1 amp NEB RBID [facility] Last Admin: 08/16/18 07:24 Dose: 1 amp Carvedilol (Coreg -) 3.125 mg PO BID [facility] Last Admin: 08/16/18 09:18 Dose: 3.125 mg Furosemide (Lasix Injection -) 40 mg IVPUSH DAILY [facility] Last Admin: 08/16/18 09:19 Dose: 40 mg Heparin Sodium (Porcine) (Heparin -) 5,000 unit SQ BID [facility] Last Admin: 08/16/18 09:19 Dose: 5,000 unit Pantoprazole Sodium 80 mg/ (Sodium Chloride) 100 mls @ 10 mls/hr IVPB Q10H [facility] Last Admin: 08/16/18 00:31 Dose: 10 mls/hr Octreotide Acetate 1,200 mcg/ (Dextrose) 500 mls @ 20.83 mls/hr IVPB ASDIR [facility] Last Admin: 08/16/18 09:21 Dose: 20.83 mls/hr Insulin Aspart (Novolog Vial Sliding Scale -) 1 vial SQ ACHS [facility]; Protocol Last Admin: 08/16/18 06:31 Dose: Not Given Insulin Detemir (Levemir Vial) 20 units SQ BID@0700,2200 [facility] Last Admin: 08/16/18 06:31 Dose: Not Given Levothyroxine Sodium (Synthroid -) 125 mcg PO DAILY@0700 [facility] Last Admin: 08/16/18 06:36 Dose: 125 mcg Methylprednisolone Sodium Succinate (Solu-Medrol -) 40 mg IVPUSH Q6H-IV [facility] Last Admin: 08/16/18 09:19 Dose: 40 mg Spironolactone (Aldactone -) 25 mg PO BID [facility] Last Admin: 08/16/18 09:19 Dose: 25 mg - Objective Vital Signs: Vital Signs Temperature 98.1 F 08/16/18 06:00 Pulse Rate 83 08/16/18 06:00 Respiratory Rate 18 08/16/18 06:00 Blood Pressure 128/64 08/16/18 06:00 O2 Sat by Pulse Oximetry (%) 95 08/15/18 21:00 Constitutional: Yes: Well Nourished, Calm, Mild Distress Cardiovascular: Yes: Regular Rate and Rhythm Respiratory: Yes: Regular, On Nasal O2, SOB on Exertion, Wheezes (diffuse) Gastrointestinal: Yes: Normal Bowel Sounds, Soft Musculoskeletal: Yes: WNL Extremities: Yes: WNL Edema: Yes Edema: LLE: 2+, RLE: 2+ Peripheral Pulses WNL: Yes Neurological: Yes: Alert, Oriented Psychiatric: Yes: Alert, Oriented Labs: CBC, BMP 08/15/18 06:25 08/15/18 18:00 INR, PTT INR 1.08 (0.83-1.09) 08/14/18 18:20 Problem List - Problems (1) GI bleed Assessment/Plan: -Guauac positive -no over bleeding -D/C pantoprazole drip- due to no overt bleeding -Would continue protonix 40 mg IVPB daily -Seen by GI -recommended Endoscopy when stable -h/h stable- monitor for now -transfuse if Hg<8.0 Code(s): K92.2 - GASTROINTESTINAL HEMORRHAGE, UNSPECIFIED (2) Ascites Assessment/Plan: -2/2 chronic liver cirrhosis -Spironolactone 25 mg po daily added in addition to furosemide 40 mg IV daily -daily weights -I&O's Code(s): R18.8 - OTHER ASCITES (3) COPD (chronic obstructive pulmonary disease) Assessment/Plan: -Nasal O2 -Seen by Pulmonary -On medrol 40 mg IV Q6H -Bronchodilators Code(s): J44.9 - CHRONIC OBSTRUCTIVE PULMONARY DISEASE, UNSPECIFIED (4) Diabetes Assessment/Plan: -A1c at 8.7 -Endocrinology on board -BGM AC HS -Diabetic low sodium diet -Novolog sliding scale -Levemir 20 U BID -D50 IVP PRN for symptomatic BGM <70 mg/dl Code(s): E11.9 - TYPE 2 DIABETES MELLITUS WITHOUT COMPLICATIONS (5) Diarrhea Assessment/Plan: -check stools for cdiff (recent hospital admission), O&P, leukocytes and culture -Bacid BID -d/c octreotide- not indicated without knowing the cause of diarrhea Code(s): R19.7 - DIARRHEA, UNSPECIFIED (6) Cirrhosis of liver Assessment/Plan: -chronic -cause unknown -has fattty live -Serology pending to exclude WATERS -Seen by GI -MRCP Code(s): K74.60 - UNSPECIFIED CIRRHOSIS OF LIVER Assessment/Plan see problem list Hold AC due to positive guaiac, it is unclear if patient has history of Afib Tre's Physical therapy
[2018-08-16] MEDS: LACTOBACILLUS ACIDOPHILUS 1 TABLET PO SCH ×2 (12:29→21:55)
[2018-08-16] MEDS: RIFAXIMIN 550 MG TABLET (UD) PO SCH ×2 (12:55→21:58)
--- NOTE | 2018-08-16 14:43 | PN ---
Progress Note (short form) - Note Progress Note: Still with SOB and cough. No CP. Afebrile. No acute events overnight. Intake & Output 08/13/18 08/14/18 08/15/18 08/16/18 23:59 23:59 23:59 23:59 Intake Total 850 1145 Balance 850 1145 Weight 167 lb 157 lb 11.2 oz 158 lb 6.4 oz Last Vital Signs Temp Pulse Resp BP Pulse Ox 98.1 F 83 18 128/64 96 08/16/18 06:00 08/16/18 06:00 08/16/18 10:00 08/16/18 06:00 08/16/18 10:00 Active Medications Albuterol/Ipratropium (Duoneb -) 1 amp NEB RQID [facility] Last Admin: 08/16/18 11:23 Dose: 1 amp Aspirin (Asa -) 81 mg PO DAILY [facility] Last Admin: 08/16/18 09:19 Dose: 81 mg Atorvastatin Calcium (Lipitor -) 10 mg PO HS [facility] Last Admin: 08/15/18 21:25 Dose: 10 mg Budesonide (Pulmicort 0.25 Mg Nebulizer -) 1 amp NEB RBID [facility] Last Admin: 08/16/18 07:24 Dose: 1 amp Carvedilol (Coreg -) 3.125 mg PO BID [facility] Last Admin: 08/16/18 09:18 Dose: 3.125 mg Dextrose (D50w (Syringe) -) 25 gm IVPUSH PRN PRN PRN Reason: HYPOGLYCEMIA Furosemide (Lasix Injection -) 40 mg IVPUSH DAILY [facility] Last Admin: 08/16/18 09:19 Dose: 40 mg Heparin Sodium (Porcine) (Heparin -) 5,000 unit SQ BID [facility] Last Admin: 08/16/18 09:19 Dose: 5,000 unit Pantoprazole Sodium 40 mg/ (Sodium Chloride) 100 mls @ 200 mls/hr IVPB DAILY [facility] Insulin Aspart (Novolog Vial Sliding Scale -) 1 vial SQ ACHS [facility]; Protocol Last Admin: 08/16/18 11:55 Dose: 5 unit Insulin Detemir (Levemir Vial) 20 units SQ BID@0700,2200 [facility] Last Admin: 08/16/18 06:31 Dose: Not Given Lactobacillus Acidophilus (Bacid -) 1 tab PO BID [facility] Last Admin: 08/16/18 12:29 Dose: 1 tab Levothyroxine Sodium (Synthroid -) 125 mcg PO DAILY@0700 [facility] Last Admin: 08/16/18 06:36 Dose: 125 mcg Methylprednisolone Sodium Succinate (Solu-Medrol -) 40 mg IVPUSH Q6H-IV [facility] Last Admin: 08/16/18 09:19 Dose: 40 mg Rifaximin (Xifaxan -) 550 mg PO BID [facility] Last Admin: 08/16/18 12:55 Dose: 550 mg Spironolactone (Aldactone -) 25 mg PO BID [facility] Last Admin: 08/16/18 09:19 Dose: 25 mg Constitutional: Yes: Well Nourished, Calm, Mild Distress Cardiovascular: Yes: Regular Rate and Rhythm Respiratory: Yes: Regular, On Nasal O2, SOB on Exertion, Wheezes (diffuse) Gastrointestinal: Yes: Normal Bowel Sounds, Soft Musculoskeletal: Yes: WNL Extremities: Yes: WNL Edema: Yes Edema: LLE: 2+, RLE: 2+ Peripheral Pulses WNL: Yes Neurological: Yes: Alert, Oriented Psychiatric: Yes: Alert, Oriented Labs: Laboratory Results - last 24 hr 08/15/18 08/15/18 08/15/18 06:25 16:49 16:55 POC Glucometer 435 415 Random Glucose Iron 114 TIBC 269 Iron Saturation 42 Stool Occult Blood 08/15/18 08/15/18 08/16/18 18:00 20:50 05:55 POC Glucometer 324 71 Random Glucose 398 H* Iron TIBC Iron Saturation Stool Occult Blood 08/16/18 08/16/18 09:15 11:14 POC Glucometer 259 Random Glucose Iron TIBC Iron Saturation Stool Occult Blood Trace Problem List - Problems (1) Hypothyroid Code(s): E03.9 - HYPOTHYROIDISM, UNSPECIFIED (2) Arrhythmia Code(s): I49.9 - CARDIAC ARRHYTHMIA, UNSPECIFIED (3) Ascites Code(s): R18.8 - OTHER ASCITES (4) CHF (congestive heart failure) Code(s): I50.9 - HEART FAILURE, UNSPECIFIED (5) COPD (chronic obstructive pulmonary disease) Code(s): J44.9 - CHRONIC OBSTRUCTIVE PULMONARY DISEASE, UNSPECIFIED (6) Shortness of breath Code(s): R06.02 - SHORTNESS OF BREATH (7) Diabetes Code(s): E11.9 - TYPE 2 DIABETES MELLITUS WITHOUT COMPLICATIONS IMP DYSPNEA ACUTE COPD EXACERBATION DIASTOLIC CHF H/O ASTHMA FLUID OVERLOAD IDDM HYPOTHYROID CIRRHOSIS PLAN IV LASIX O2 INHALED BRONCHODILATORS MEDROL DAILY WTS GLYCEMIC CONTROL DR DEL TORO
--- NOTE | 2018-08-16 18:14 | PN ---
Progress Note, Physician Chief Complaint: Presently comfortable History of Present Illness: This is an 83yo f with history of cirrhosis, fatty liver, COPD, chronic diastolic CHF, DM, asthma, CABG 2016 at [facility] (sees Dr Oropeza) sent to ED from Dr. Hernandez's office for evaluation of fluid overload. Pt was recently discharged from [facility] 4-5 days ago for COPD exacerbation/CHF, diuresed but does not feel better. No chest pain, orthopnea. Edema is worse as is abdominal distension. Noted with atrial fibrillation on ECG. Not on AC. Echocardiogram 08/15/18: Normal LV function Normal RV function Mild MR Mild to moderate [facility] - Current Medication List Current Medications: Active Medications Albuterol/Ipratropium (Duoneb -) 1 amp NEB RQID [facility] Last Admin: 08/16/18 15:39 Dose: 1 amp Aspirin (Asa -) 81 mg PO DAILY [facility] Last Admin: 08/16/18 09:19 Dose: 81 mg Atorvastatin Calcium (Lipitor -) 10 mg PO HS [facility] Last Admin: 08/15/18 21:25 Dose: 10 mg Budesonide (Pulmicort 0.25 Mg Nebulizer -) 1 amp NEB RBID [facility] Last Admin: 08/16/18 07:24 Dose: 1 amp Carvedilol (Coreg -) 3.125 mg PO BID [facility] Last Admin: 08/16/18 09:18 Dose: 3.125 mg Dextrose (D50w (Syringe) -) 25 gm IVPUSH PRN PRN PRN Reason: HYPOGLYCEMIA Furosemide (Lasix Injection -) 40 mg IVPUSH DAILY [facility] Last Admin: 08/16/18 09:19 Dose: 40 mg Heparin Sodium (Porcine) (Heparin -) 5,000 unit SQ BID [facility] Last Admin: 08/16/18 09:19 Dose: 5,000 unit Pantoprazole Sodium 40 mg/ (Sodium Chloride) 100 mls @ 200 mls/hr IVPB DAILY [facility] Insulin Aspart (Novolog Vial Sliding Scale -) 1 vial SQ ACHS [facility]; Protocol Last Admin: 08/16/18 17:15 Dose: 7 unit Insulin Detemir (Levemir Vial) 20 units SQ BID@0700,2200 [facility] Last Admin: 08/16/18 06:31 Dose: Not Given Lactobacillus Acidophilus (Bacid -) 1 tab PO BID [facility] Last Admin: 08/16/18 12:29 Dose: 1 tab Levothyroxine Sodium (Synthroid -) 125 mcg PO DAILY@0700 [facility] Last Admin: 08/16/18 06:36 Dose: 125 mcg Methylprednisolone Sodium Succinate (Solu-Medrol -) 40 mg IVPUSH Q6H-IV [facility] Last Admin: 08/16/18 15:28 Dose: 40 mg Rifaximin (Xifaxan -) 550 mg PO BID [facility] Last Admin: 08/16/18 12:55 Dose: 550 mg Spironolactone (Aldactone -) 25 mg PO BID [facility] Last Admin: 08/16/18 09:19 Dose: 25 mg - Objective Vital Signs: Vital Signs Temperature 97.5 F L 08/16/18 14:20 Pulse Rate 100 H 08/16/18 14:20 Respiratory Rate 16 08/16/18 14:20 Blood Pressure 132/45 L 08/16/18 14:20 O2 Sat by Pulse Oximetry (%) 96 08/16/18 10:00 Constitutional: Yes: No Distress HENT: Yes: WNL Neck: Yes: WNL Cardiovascular: Yes: Regular Rate and Rhythm Respiratory: Yes: Wheezes (Minimal bilateral wheezing) Gastrointestinal: Yes: Soft, Ascites Edema: Yes Edema: LLE: 1+, RLE: 1+ Neurological: Yes: Alert, Oriented (Grossly nonfocal) Labs: CBC, BMP 08/15/18 06:25 08/15/18 18:00 INR, PTT INR 1.08 (0.83-1.09) 08/14/18 18:20 Assessment/Plan 83yo f with history of cirrhosis, fatty liver, COPD, chronic diastolic CHF, DM, asthma, CABG 2016 at [facility] (sees Dr Oropeza) sent to ED from Dr. Hernandez's office for evaluation of fluid overload. Pt was recently discharged from [facility] 4-5 days ago for COPD exacerbation/CHF, diuresed but does not feel better. No chest pain, orthopnea. Edema is worse as is abdominal distension. Noted with atrial fibrillation on ECG. Not on AC. Echo 08/15/18 showing normal LV size and function. 1. CHF-told of EF 50% at [facility], not in CHF at present. Continue Lasix 40 mg IVSS daily Continue Aldactone 25 mg PO BID Daily I's/O's/Lytes/Wt;s 2. CAD s/p CABG Stable without angina or CHF symptoms. Continue secondary prevention with atrovastatin and ASA 3. Atrial fibrillation Would increase Coreg to 6.25 mg PO Q12 Would defer AC for now until GI/liver assesses the patient for bleeding risk. Will follow with you.
--- NOTE | 2018-08-16 18:21 | CON.GI ---
Consult Consult Specialty:: GI Referred by:: Dr Patel - History of Present Illness History of Present Illness: *3 y/o Female with PMH of COPD, CHF, liver cirrhosis was asked to be seen becasue of dark stool, anemia and guaiac postive stool. She was seen by Dr Irby and was started on IV Protonix and IV sandostatin. This morning the diarrhea has improved and passed yellow stool. There was a minimal drop in Hgb from 11 to 10.. - Past Medical History Cardio/Vascular: Yes: CHF, HTN, Hyperlipdemia. No: AFIB Pulmonary: Yes: COPD Gastrointestinal: Yes: GERD Hepatobiliary: Yes: Cirrhosis ...: No Endocrine: Yes: Diabetes Mellitus - Alcohol/Substance Use Hx Alcohol Use: No - Smoking History Smoking history: Former smoker Have you smoked in the past 12 months: No Home Medications - Allergies Allergies/Adverse Reactions: Allergies Allergy/AdvReac Type Severity Reaction Status Date / Time Penicillins Allergy Verified 08/14/18 16:56 - Home Medications Home Medications: Ambulatory Orders Aspirin 81 mg PO DAILY 08/14/18 Atorvastatin Ca [Lipitor] 10 mg PO HS 08/14/18 Budesonide [Pulmicort 0.25 mg -] 1 neb PO BID 08/14/18 Carvedilol [Coreg -] 3.125 mg PO BID 08/14/18 Cholecalciferol (Vitamin D3) [Vitamin D3] 1,000 unit PO DAILY 08/14/18 Furosemide 40 mg PO DAILY 08/14/18 Insulin Glargine,Hum.rec.anlog [Lantus] 100 unit SQ HS 08/14/18 Insulin Lispro [Humalog] 6 units SQ ASDIR 08/14/18 Levothyroxine [Synthroid -] 125 mcg PO DAILY 08/14/18 Magnesium Oxide [Mag-Oxide] 400 mg PO BID 08/14/18 Metformin HCl [Metformin HCl ER] 1,000 mg PO DAILY 08/14/18 Prednisone 10 mg PO DAILY 08/14/18 Repaglinide 1 mg PO HS 08/14/18 Physical Exam-GI Vital Signs: Vital Signs Temperature 97.5 F L 08/16/18 14:20 Pulse Rate 100 H 08/16/18 14:20 Respiratory Rate 16 08/16/18 14:20 Blood Pressure 132/45 L 08/16/18 14:20 O2 Sat by Pulse Oximetry (%) 96 08/16/18 10:00 Constitutional: Yes: Well Nourished Eyes: Yes: Conjunctiva Clear HENT: Yes: Atraumatic Neck: Yes: Supple Cardiovascular: Yes: Regular Rate and Rhythm Respiratory: Yes: Diminished, Rhonchi ...Palpate: Yes: Soft. No: Firm/Rigid, Guarding, Hepatomegaly, Mass, Pulsatile Mass, Splenomegaly, Tenderness Labs: CBC, BMP 08/15/18 06:25 08/15/18 18:00 INR, PTT INR 1.08 (0.83-1.09) 08/14/18 18:20 Assessment/Plan Occult GI bleeding. At this time no active bleeding noted R> continue IV Protonix may discontinue Sandostatin if clinically improved GI w/u once medically stable Dr Salmeron covering for Dr Malik in am
[2018-08-16] MEDS ORDERED: PT OWN MED DRAWER 7, Y5N ONE (21:40)
[2018-08-16] MEDS: ATORVASTATIN CA 10 MG TABLET (FP) PO SCH (21:58)
[2018-08-17] MEDS: methylPREDNISolone NA SUCC 40 MG/1 ML VIAL IVPUSH SCH ×3 (03:30→17:07)
[2018-08-17 06:06] LABS: HBSAG SCREEN Negative (Negative); HEP B CORE AB, TOT Negative (Negative)
[2018-08-17] MEDS: INSULIN (LEVEMIR) 100 UNITS/ML UNITS SQ SCH ×2 (06:14→21:21)
[2018-08-17] MEDS: INSULIN SLIDING SCALE (NOVOLOG) 1 VIAL SQ SCH ×5 (06:14→21:22)
[2018-08-17] MEDS: LEVOTHYROXINE NA 125 MCG TABLET (FP) PO SCH (06:14)
[2018-08-17] MEDS: ALBUTEROL SO4 2.5/IPRATROPIUM 0.5 INH SOL 3 ML VIAL.NEB. NEB SCH ×4 (07:20→20:33)
[2018-08-17] MEDS: BUDESONIDE 0.25 MG/2ML INH SUSP VIAL NEB SCH ×2 (07:20→20:33)
[2018-08-17] MEDS ORDERED: PT OWN MED DRAWER 7, Y5N ONE (08:56)
[2018-08-17] MEDS ORDERED: PANTOPRAZOLE SODIUM 40 MG VIAL ONE (08:56)
[2018-08-17] MEDS ORDERED: SODIUM CHLORIDE 100 ML IVPB ONE (08:57)
[2018-08-17] MEDS: HEPARIN NA (PORCINE) 5,000 UNITS/ML 1ML VIAL SQ SCH ×2 (09:21→21:19)
[2018-08-17] MEDS: ASPIRIN 81 MG CHEWABLE TABLETS PO SCH (09:22)
[2018-08-17] MEDS: LACTOBACILLUS ACIDOPHILUS 1 TABLET PO SCH ×2 (09:23→21:20)
[2018-08-17] MEDS: CARVEDILOL 3.125 MG TABLET (FP) PO SCH (09:23)
[2018-08-17] MEDS: SPIRONOLACTONE 25 MG TABLET (FP) PO SCH ×2 (09:23→21:20)
[2018-08-17] MEDS: FUROSEMIDE 40 MG/4 ML INJECTABLE VIAL IVPUSH SCH (09:23)
[2018-08-17] MEDS: PANTOPRAZOLE SODIUM 40 MG in SODIUM CHLORIDE 100 ML IVPB SCH (09:23)
[2018-08-17] MEDS: RIFAXIMIN 550 MG TABLET (UD) PO SCH (09:24)
[2018-08-17] MEDS ORDERED: INSULIN (NOVOLOG) ASPART 100 UNITS/ML 10ML VIAL ONE ×2 (10:14→21:08)
[2018-08-17] MEDS ORDERED: FLU VACCINE QUAD 60 MCG/0.5 ML (MDV 18-19) IM ONE (10:35)
--- NOTE | 2018-08-17 11:13 | PN ---
Progress Note (short form) - Note Progress Note: PULMONARY AWAKE/OOB TO CHAIR COMPLAINING OF DIARRHEA/? RIFAXIMIN ADMITTING WEIGHT 167/TODAY 160 LBS BGM'S HIGH VSS/AFEBRILE ANICTERIC END EXP WHEEZE B/L S1S2 BS+/DISTENDED 1+ EDEMA LABS/MEDS/NOTES/IMAGES REVIEWED IMP DYSPNEA COPD EXACERBATION DIASTOLIC CHF H/O ASTHMA FLUID OVERLOAD IDDM HYPOTHYROID CIRRHOSIS/ASCITES PLAN IV LASIX/ALDACTONE PO O2 INHALED BRONCHODILATORS MEDROL TO TAPER DAILY WTS F/U CHEST X-RAYS GLYCEMIC CONTROL STOOL C. DIFF/D/C RIFAXIMIN Jose Armando ARREOLA MD
--- NOTE | 2018-08-17 11:54 | PN ---
Progress Note, Physician Chief Complaint: SOB COPD exacerbation History of Present Illness: NAD sitting in chair Seen by Pulmonary and GI Awaiting MRCP labs to be done today Medrol tapering dose for COPD exacerbation - Current Medication List Current Medications: Active Medications Albuterol/Ipratropium (Duoneb -) 1 amp NEB RQID [facility] Last Admin: 08/17/18 11:21 Dose: 1 amp Aspirin (Asa -) 81 mg PO DAILY [facility] Last Admin: 08/17/18 09:22 Dose: 81 mg Atorvastatin Calcium (Lipitor -) 10 mg PO HS [facility] Last Admin: 08/16/18 21:58 Dose: 10 mg Budesonide (Pulmicort 0.25 Mg Nebulizer -) 1 amp NEB RBID [facility] Last Admin: 08/17/18 07:20 Dose: Not Given Carvedilol (Coreg -) 3.125 mg PO BID [facility] Last Admin: 08/17/18 09:23 Dose: 3.125 mg Dextrose (D50w (Syringe) -) 25 gm IVPUSH PRN PRN PRN Reason: HYPOGLYCEMIA Furosemide (Lasix Injection -) 40 mg IVPUSH DAILY [facility] Last Admin: 08/17/18 09:23 Dose: 40 mg Heparin Sodium (Porcine) (Heparin -) 5,000 unit SQ BID [facility] Last Admin: 08/17/18 09:21 Dose: 5,000 unit Pantoprazole Sodium 40 mg/ (Sodium Chloride) 100 mls @ 200 mls/hr IVPB DAILY [facility] Last Admin: 08/17/18 09:23 Dose: 200 mls/hr Metronidazole (Flagyl 500mg Premixed Ivpb -) 500 mg in 100 mls @ 100 mls/hr IVPB Q8H-IV [facility] Insulin Aspart (Novolog Vial Sliding Scale -) 1 vial SQ ACHS [facility]; Protocol Last Admin: 08/17/18 06:14 Dose: Not Given Insulin Detemir (Levemir Vial) 20 units SQ BID@0700,2200 [facility] Last Admin: 08/17/18 06:14 Dose: Not Given Lactobacillus Acidophilus (Bacid -) 1 tab PO BID [facility] Last Admin: 08/17/18 09:23 Dose: 1 tab Levothyroxine Sodium (Synthroid -) 125 mcg PO DAILY@0700 [facility] Last Admin: 08/17/18 06:14 Dose: 125 mcg Methylprednisolone Sodium Succinate (Solu-Medrol -) 20 mg IVPUSH Q8H-IV [facility] Spironolactone (Aldactone -) 25 mg PO BID [facility] Last Admin: 08/17/18 09:23 Dose: 25 mg - Objective Vital Signs: Vital Signs Temperature 97.8 F 08/17/18 09:00 Pulse Rate 90 08/17/18 09:00 Respiratory Rate 20 08/17/18 09:00 Blood Pressure 122/64 08/17/18 09:00 O2 Sat by Pulse Oximetry (%) 97 08/17/18 09:00 Constitutional: Yes: Well Nourished, No Distress, Calm Cardiovascular: Yes: Pulse Irregular Respiratory: Yes: Regular Gastrointestinal: Yes: Normal Bowel Sounds, Soft Musculoskeletal: Yes: Muscle Weakness Extremities: Yes: WNL Edema: Yes Edema: LLE: 1+, RLE: 1+ Peripheral Pulses WNL: Yes Neurological: Yes: Alert, Oriented Psychiatric: Yes: Alert, Oriented Labs: CBC, BMP 08/15/18 06:25 08/15/18 18:00 INR, PTT INR 1.08 (0.83-1.09) 08/14/18 18:20 Problem List - Problems (1) GI bleed Assessment/Plan: -Guauac positive -no over bleeding -Continue protonix 40 mg IVPB daily -Seen by GI -recommended Endoscopy when stable -h/h stable- monitor for now -transfuse if Hg<8.0 Code(s): K92.2 - GASTROINTESTINAL HEMORRHAGE, UNSPECIFIED (2) Ascites Assessment/Plan: -2/2 chronic liver cirrhosis -Spironolactone 25 mg po daily added in addition to furosemide 40 mg IV daily -daily weights -I&O's Code(s): R18.8 - OTHER ASCITES (3) COPD (chronic obstructive pulmonary disease) Assessment/Plan: -Nasal O2 -Seen by Pulmonary -On medrol 40 mg IV Q6H -Bronchodilators Code(s): J44.9 - CHRONIC OBSTRUCTIVE PULMONARY DISEASE, UNSPECIFIED (4) Diabetes Assessment/Plan: -A1c at 8.7 -Endocrinology on board -BGM AC HS -Diabetic low sodium diet -Novolog sliding scale -Levemir 20 U BID -D50 IVP PRN for symptomatic BGM <70 mg/dl Code(s): E11.9 - TYPE 2 DIABETES MELLITUS WITHOUT COMPLICATIONS (5) Diarrhea Assessment/Plan: -Awaiting stools for cdiff (recent hospital admission), O&P, leukocytes and culture -Bacid BID Code(s): R19.7 - DIARRHEA, UNSPECIFIED (6) Cirrhosis of liver Assessment/Plan: -chronic -cause unknown -has fatty liver -Serology pending to exclude WATERS -Seen by GI -MRCP Code(s): K74.60 - UNSPECIFIED CIRRHOSIS OF LIVER Assessment/Plan see problem list Hold AC due to positive guaiac, it is unclear if patient has history of Afib Tre's Physical therapy
[2018-08-17 14:27] LABS: BASO % 0.2 % (0-2.0); HEMATOCRIT 36.7 % (32.4-45.2); HEMOGLOBIN 11.5 GM/dL (10.7-15.3); LYMPH % 1.9 % (8-40); MCH 27.6 pg (25.7-33.7); MCHC 31.3 g/dl (32.0-36.0); MEAN CELL VOLUME 88.1 fl (80-96); MEAN PLT VOLUME 9.3 fl (7.5-11.1); MONO % 3.3 % (3.8-10.2); NEUT % 94.6 % (42.8-82.8); PLATELET COUNT 139 K/MM3 (134-434); RBC 4.17 M/mm3 (3.60-5.2); RDW 18.2 % (11.6-15.6); WHITE BLOOD COUNT 14.9 K/mm3 (4.0-10.0)
--- NOTE | 2018-08-17 14:41 | PN ---
Progress Note, Physician History of Present Illness: This is an 83yo f with history of cirrhosis, fatty liver, COPD, chronic diastolic CHF, DM, asthma, CABG 2016 at [facility] (sees Dr Oropeza) sent to ED from Dr. Hernandez's office for evaluation of fluid overload. Pt was recently discharged from [facility] 4-5 days ago for COPD exacerbation/CHF, diuresed but does not feel better. No chest pain, orthopnea. Edema is worse as is abdominal distension. Noted with atrial fibrillation on ECG. Not on AC. 08/17/18 still with RVR. Echocardiogram 08/15/18: Normal LV function Normal RV function Mild MR Mild to moderate [facility] - Current Medication List Current Medications: Active Medications Albuterol/Ipratropium (Duoneb -) 1 amp NEB RQID [facility] Last Admin: 08/17/18 11:21 Dose: 1 amp Aspirin (Asa -) 81 mg PO DAILY [facility] Last Admin: 08/17/18 09:22 Dose: 81 mg Atorvastatin Calcium (Lipitor -) 10 mg PO HS [facility] Last Admin: 08/16/18 21:58 Dose: 10 mg Budesonide (Pulmicort 0.25 Mg Nebulizer -) 1 amp NEB RBID [facility] Last Admin: 08/17/18 07:20 Dose: Not Given Carvedilol (Coreg -) 3.125 mg PO BID [facility] Last Admin: 08/17/18 09:23 Dose: 3.125 mg Dextrose (D50w (Syringe) -) 25 gm IVPUSH PRN PRN PRN Reason: HYPOGLYCEMIA Furosemide (Lasix Injection -) 40 mg IVPUSH DAILY [facility] Last Admin: 08/17/18 09:23 Dose: 40 mg Heparin Sodium (Porcine) (Heparin -) 5,000 unit SQ BID [facility] Last Admin: 08/17/18 09:21 Dose: 5,000 unit Pantoprazole Sodium 40 mg/ (Sodium Chloride) 100 mls @ 200 mls/hr IVPB DAILY [facility] Last Admin: 08/17/18 09:23 Dose: 200 mls/hr Metronidazole (Flagyl 500mg Premixed Ivpb -) 500 mg in 100 mls @ 100 mls/hr IVPB Q8H-IV [facility] Last Admin: 08/17/18 12:19 Dose: 100 mls/hr Insulin Aspart (Novolog Vial Sliding Scale -) 1 vial SQ ACHS [facility]; Protocol Last Admin: 08/17/18 12:16 Dose: 10 unit Insulin Detemir (Levemir Vial) 20 units SQ BID@0700,2200 [facility] Last Admin: 08/17/18 06:14 Dose: Not Given Lactobacillus Acidophilus (Bacid -) 1 tab PO BID [facility] Last Admin: 08/17/18 09:23 Dose: 1 tab Levothyroxine Sodium (Synthroid -) 125 mcg PO DAILY@0700 [facility] Last Admin: 08/17/18 06:14 Dose: 125 mcg Lidocaine/Aluminum/Magnesium/Simeth (Magic Mouthwash *Sjr Formula* -) 5 ml MM Q6HPO PRN PRN Reason: mouth pain Methylprednisolone Sodium Succinate (Solu-Medrol -) 20 mg IVPUSH Q8H-IV [facility] Spironolactone (Aldactone -) 25 mg PO BID [facility] Last Admin: 08/17/18 09:23 Dose: 25 mg - Objective Vital Signs: Vital Signs Temperature 97.8 F 08/17/18 09:00 Pulse Rate 90 08/17/18 09:00 Respiratory Rate 20 08/17/18 09:00 Blood Pressure 122/64 08/17/18 09:00 O2 Sat by Pulse Oximetry (%) 97 08/17/18 09:00 Constitutional: Yes: No Distress, Calm Eyes: Yes: Conjunctiva Clear, EOM Intact HENT: Yes: Normocephalic Neck: Yes: Trachea Midline Cardiovascular: Yes: Tachycardia, Pulse Irregular Respiratory: Yes: CTA Bilaterally Gastrointestinal: Yes: Normal Bowel Sounds, Soft Extremities: Yes: WNL Edema: Yes Edema: LLE: 1+, RLE: 1+ Peripheral Pulses WNL: Yes Labs: CBC, BMP 08/17/18 13:40 INR, PTT INR 1.08 (0.83-1.09) 08/14/18 18:20 Assessment/Plan She is an 83yo f with history of cirrhosis, fatty liver, COPD, chronic diastolic CHF, DM, asthma, CABG 2016 at [facility] (sees Dr Oropeza) sent to ED from Dr. Hernandez's office for evaluation of fluid overload. Pt was recently discharged from [facility] 4-5 days ago for COPD exacerbation/CHF, diuresed but does not feel better. No chest pain, orthopnea. Edema is worse as is abdominal distension. Noted with atrial fibrillation on ECG. Not on AC. 1. CHF-told of EF 50% at [facility], not in CHF at present. -would diurese for cirrhosis related edema and ascites, add spironolactone 25 mg bid and increase as tolerated. -Echo nlef. 2. CAD s/p CABG -stable without angina or CHF symptoms. 3. Atrial fibrillation -she denies history but would get records from recent admission to [facility]. -increase coreg 12.5 bid. -would defer AC for now until GI/liver assesses the patient for bleeding risk.
[2018-08-17 15:42] LABS: ALBUMIN 2.9 g/dl (3.4-5.0); ALK PHOS 124 U/L (45-117); ANION GAP 11 MMOL/L (8-16); BILIRUBIN,TOTAL 0.8 mg/dL (0.2-1); BLOOD UREA NITROGEN 39 mg/dL (7-18); CALCIUM 8.6 mg/dL (8.5-10.1); CHLORIDE 101 mmol/L (98-107); CO2 27 mmol/L (21-32); CREATININE 1.4 mg/dL (0.55-1.3); POTASSIUM 4.7 mmol/L (3.5-5.1); SGOT/AST 286 U/L (15-37); SGPT/ALT 304 U/L (13-61); SODIUM 138 mmol/L (136-145); TOT PROT 6.1 g/dl (6.4-8.2)
[2018-08-17 15:49] LABS: GLUCOSE,RANDOM 321 mg/dL (74-106)
[2018-08-17] MEDS: MAG HYDROX/ALH/SMC/DPHA/LIDO 240 ML MOUTHWASH MM PRN (16:31)
[2018-08-17] MEDS: ATORVASTATIN CA 10 MG TABLET (FP) PO SCH (21:20)
[2018-08-17] MEDS: CARVEDILOL 12.5 MG TABLET (FP) PO SCH (21:20)
[2018-08-18] MEDS: methylPREDNISolone NA SUCC 40 MG/1 ML VIAL IVPUSH SCH ×3 (01:16→17:36)
[2018-08-18] MEDS: LEVOTHYROXINE NA 125 MCG TABLET (FP) PO SCH (06:29)
[2018-08-18] MEDS: INSULIN SLIDING SCALE (NOVOLOG) 1 VIAL SQ SCH ×4 (06:29→21:12)
[2018-08-18] MEDS: INSULIN (LEVEMIR) 100 UNITS/ML UNITS SQ SCH ×2 (06:34→21:12)
[2018-08-18 06:58] LABS: BASO % 0.1 % (0-2.0); HEMATOCRIT 34.3 % (32.4-45.2); HEMOGLOBIN 10.7 GM/dL (10.7-15.3); LYMPH % 3.3 % (8-40); MCH 27.6 pg (25.7-33.7); MCHC 31.3 g/dl (32.0-36.0); MEAN CELL VOLUME 88.2 fl (80-96); MEAN PLT VOLUME 9.3 fl (7.5-11.1); MONO % 3.5 % (3.8-10.2); NEUT % 93.1 % (42.8-82.8); PLATELET COUNT 87 K/MM3 (134-434); RBC 3.89 M/mm3 (3.60-5.2); RDW 18.4 % (11.6-15.6); WHITE BLOOD COUNT 9.3 K/mm3 (4.0-10.0)
[2018-08-18] MEDS ORDERED: INSULIN (LEVEMIR) 100 UNITS/ML UNITS SQ ONE (07:00)
[2018-08-18] MEDS ORDERED: INSULIN (NOVOLOG MIX 70/30) 100 UNITS/ML MDV SQ ONE (07:00)
[2018-08-18] MEDS ORDERED: INSULIN (NOVOLOG) ASPART 100 UNITS/ML 10ML VIAL ONE ×2 (07:00→21:08)
[2018-08-18 07:48] LABS: ALBUMIN 2.7 g/dl (3.4-5.0); ALK PHOS 118 U/L (45-117); ANION GAP 8 MMOL/L (8-16); BILIRUBIN,TOTAL 0.6 mg/dL (0.2-1); BLOOD UREA NITROGEN 40 mg/dL (7-18); CALCIUM 8.6 mg/dL (8.5-10.1); CHLORIDE 105 mmol/L (98-107); CO2 28 mmol/L (21-32); CREATININE 1.3 mg/dL (0.55-1.3); POTASSIUM 4.6 mmol/L (3.5-5.1); SGOT/AST 255 U/L (15-37); SGPT/ALT 379 U/L (13-61); SODIUM 140 mmol/L (136-145); TOT PROT 5.4 g/dl (6.4-8.2)
[2018-08-18] MEDS ORDERED: PT OWN MED DRAWER 7, Y5N ONE ×3 (08:01→21:08)
[2018-08-18 08:07] LABS: GLUCOSE,RANDOM 314 mg/dL (74-106)
[2018-08-18] MEDS: ALBUTEROL SO4 2.5/IPRATROPIUM 0.5 INH SOL 3 ML VIAL.NEB. NEB SCH ×4 (09:00→20:10)
[2018-08-18] MEDS: BUDESONIDE 0.25 MG/2ML INH SUSP VIAL NEB SCH ×2 (09:00→20:20)
[2018-08-18] MEDS ORDERED: PANTOPRAZOLE SODIUM 40 MG VIAL ONE (09:14)
[2018-08-18] MEDS ORDERED: SODIUM CHLORIDE 100 ML IVPB ONE (09:14)
[2018-08-18] MEDS: PANTOPRAZOLE SODIUM 40 MG in SODIUM CHLORIDE 100 ML IVPB SCH (09:27)
[2018-08-18] MEDS: HEPARIN NA (PORCINE) 5,000 UNITS/ML 1ML VIAL SQ SCH ×2 (09:28→21:12)
[2018-08-18] MEDS: FUROSEMIDE 40 MG/4 ML INJECTABLE VIAL IVPUSH SCH (09:28)
[2018-08-18] MEDS: LACTOBACILLUS ACIDOPHILUS 1 TABLET PO SCH ×2 (09:28→21:12)
[2018-08-18] MEDS: CARVEDILOL 12.5 MG TABLET (FP) PO SCH ×2 (09:28→21:12)
[2018-08-18] MEDS: ASPIRIN 81 MG CHEWABLE TABLETS PO SCH (09:29)
[2018-08-18] MEDS: SPIRONOLACTONE 25 MG TABLET (FP) PO SCH ×2 (09:29→21:13)
[2018-08-18 11:25] LABS: ANISOCYTOSIS 1+; MACROCYTOSIS 0; PLATELET ESTIMATE DECREASED
--- NOTE | 2018-08-18 11:28 | PN ---
Progress Note (short form) - Note Progress Note: PULMONARY AWAKE/OOB TO CHAIR COMPLAINING OF DIARRHEA/ ADMITTING WEIGHT 167/TODAY 161 LBS BGM'S REMAIN HIGH VSS/AFEBRILE ANICTERIC END EXP WHEEZE B/L IMPROVED S1S2 BS+/DISTENDED 1+ EDEMA LABS/MEDS/NOTES/IMAGES REVIEWED LFT'S ARE RISING IMP COPD EXACERBATION DIASTOLIC CHF H/O ASTHMA VOLUME OVERLOAD IDDM HYPOTHYROID CIRRHOSIS/ASCITES/RISING LFT'S MRI ABD DONE YESTERDAY REPORT PENDING RELEASE SIGNED AND FAXED TO [facility] TO FAX RECORDS OF MOST RECENT ADMISSION PLAN IV LASIX/ALDACTONE PO O2 INHALED BRONCHODILATORS MEDROL TO TAPER DAILY WTS F/U CHEST X-RAYS GLYCEMIC CONTROL STOOL C. DIFF/D/C RIFAXIMIN AWAIT MRI REPORT/GI FOLLOW UP Jose Armando ARREOLA MD
--- NOTE | 2018-08-18 13:01 | PN ---
Progress Note, Physician Chief Complaint: AWAKE ALERT EVENTS AND NOTES REVIEWED NAD FREQUENT BM - Current Medication List Current Medications: Active Medications Albuterol/Ipratropium (Duoneb -) 1 amp NEB RQID [facility] Last Admin: 08/18/18 09:00 Dose: 1 amp Aspirin (Asa -) 81 mg PO DAILY [facility] Last Admin: 08/18/18 09:29 Dose: 81 mg Atorvastatin Calcium (Lipitor -) 10 mg PO HS [facility] Last Admin: 08/17/18 21:20 Dose: 10 mg Budesonide (Pulmicort 0.25 Mg Nebulizer -) 1 amp NEB RBID [facility] Last Admin: 08/18/18 09:00 Dose: 1 amp Carvedilol (Coreg -) 12.5 mg PO BID [facility] Last Admin: 08/18/18 09:28 Dose: 12.5 mg Dextrose (D50w (Syringe) -) 25 gm IVPUSH PRN PRN PRN Reason: HYPOGLYCEMIA Furosemide (Lasix Injection -) 40 mg IVPUSH DAILY [facility] Last Admin: 08/18/18 09:28 Dose: 40 mg Heparin Sodium (Porcine) (Heparin -) 5,000 unit SQ BID [facility] Last Admin: 08/18/18 09:28 Dose: 5,000 unit Pantoprazole Sodium 40 mg/ (Sodium Chloride) 100 mls @ 200 mls/hr IVPB DAILY [facility] Last Admin: 08/18/18 09:27 Dose: 200 mls/hr Metronidazole (Flagyl 500mg Premixed Ivpb -) 500 mg in 100 mls @ 100 mls/hr IVPB Q8H-IV [facility] Last Admin: 08/18/18 09:27 Dose: 100 mls/hr Insulin Aspart (Novolog Vial Sliding Scale -) 1 vial SQ [facility]; Protocol Last Admin: 08/18/18 12:29 Dose: 6 units Insulin Detemir (Levemir Vial) 24 units SQ BID@0700,2200 [facility] Last Admin: 08/18/18 06:34 Dose: 24 units Lactobacillus Acidophilus (Bacid -) 1 tab PO BID [facility] Last Admin: 08/18/18 09:28 Dose: 1 tab Levothyroxine Sodium (Synthroid -) 125 mcg PO DAILY@0700 [facility] Last Admin: 08/18/18 06:29 Dose: 125 mcg Lidocaine/Aluminum/Magnesium/Simeth (Magic Mouthwash *Sjr Formula* -) 5 ml MM Q6HPO PRN PRN Reason: mouth pain Last Admin: 08/17/18 16:31 Dose: 5 ml Methylprednisolone Sodium Succinate (Solu-Medrol -) 20 mg IVPUSH Q8H-IV [facility] Last Admin: 08/18/18 09:28 Dose: 20 mg Spironolactone (Aldactone -) 25 mg PO BID [facility] Last Admin: 08/18/18 09:29 Dose: 25 mg - Objective Vital Signs: Vital Signs Temperature 97.7 F 08/18/18 10:00 Pulse Rate 96 H 08/18/18 10:00 Respiratory Rate 19 08/18/18 10:00 Blood Pressure 117/58 L 08/18/18 10:00 O2 Sat by Pulse Oximetry (%) 98 08/18/18 09:00 Constitutional: Yes: Mild Distress Eyes: Yes: WNL HENT: Yes: WNL Neck: Yes: WNL Cardiovascular: Yes: WNL Respiratory: Yes: WNL Gastrointestinal: Yes: WNL Genitourinary: Yes: WNL Musculoskeletal: Yes: WNL Extremities: Yes: WNL Edema: No Peripheral Pulses WNL: Yes Integumentary: Yes: WNL Wound/Incision: Yes: Clean/Dry Neurological: Yes: WNL ...Motor Strength: WNL Psychiatric: Yes: WNL Labs: CBC, BMP 08/18/18 06:00 08/18/18 06:00 INR, PTT INR 1.08 (0.83-1.09) 08/14/18 18:20 Problem List - Problems (1) Angiodysplasia of gastrointestinal tract Code(s): K55.20 - ANGIODYSPLASIA OF COLON WITHOUT HEMORRHAGE (2) Arrhythmia Code(s): I49.9 - CARDIAC ARRHYTHMIA, UNSPECIFIED (3) Ascites Code(s): R18.8 - OTHER ASCITES (4) CHF (congestive heart failure) Code(s): I50.9 - HEART FAILURE, UNSPECIFIED (5) COPD (chronic obstructive pulmonary disease) Code(s): J44.9 - CHRONIC OBSTRUCTIVE PULMONARY DISEASE, UNSPECIFIED (6) Cirrhosis of liver Code(s): K74.60 - UNSPECIFIED CIRRHOSIS OF LIVER Qualifiers: Ascites presence: with ascites (7) Diabetes Code(s): E11.9 - TYPE 2 DIABETES MELLITUS WITHOUT COMPLICATIONS (8) Hypothyroid Code(s): E03.9 - HYPOTHYROIDISM, UNSPECIFIED Assessment/Plan CHECK THYROID FUNCTION OOB TO CHAIR NON-BLOODY BM GI F/U ON TELE NO ALARMS CARDIO EVAL
--- NOTE | 2018-08-18 14:30 | PN ---
GI Progress Note Subjective: GI NOte: Asked by Dr Arroyo to assume GI care of this patient. Rylie has not had a black stool since admission and her Hb is stable. She tells me that she has along h/o intermittent black stools for which she saw Dr Ramírez who performed a colonoscopy about 3 years ago which she believes was unrevealing. She had colon polyps removed during previous exams. She had an EGD with her remotely and was told of GERD. Earlier this year Dr Ramírez referred her to Dr German Wise who did a capsule endoscopy and told her she has bleeding from small bowel lesions, presumably vascular ectasias. Dr Ramírez also referred her to a information director at [facility] who she has not yet seen. She did have a liver biopsy at [facility] at age 36 after which she was told that she had a fatty liver. She drank a glass of wine daily with dinner up until 4 weeks ago. She denies tattoos, transfusions or IVDA. She had her ascites tapped at [facility] several days ago. The results are being pursued by Dr. Arroyo. She was admited with relatively normal transaminases but these have been rising. She has had several hospitalizations this year for breathing difficulties . Her echocardiogram reveals moderate tricuspid regurgitation with pulmonary hyptertension and her BNP has been rising. RI and sonography reveal a cirrhotic liver, dilated CBD ( s/p GB) and ascites but no liver masses , - Objective Vital Signs: Vital Signs Temperature 97.7 F 08/18/18 10:00 Pulse Rate 96 H 08/18/18 10:00 Respiratory Rate 19 08/18/18 10:00 Blood Pressure 117/58 L 08/18/18 10:00 O2 Sat by Pulse Oximetry (%) 98 08/18/18 09:00 Laboratory Tests 08/14/18 08/14/18 08/15/18 17:03 17:03 06:25 Hgb 11.8 10.5 L Iron Ferritin AST 52 H ALT 86 H Alkaline Phosphatase 128 H 08/15/18 08/15/18 08/16/18 06:25 06:25 06:00 Hgb Iron 114 50 Ferritin 224.6 AST ALT Alkaline Phosphatase 108 08/17/18 08/17/18 08/18/18 13:40 13:40 06:00 Hgb 11.5 10.7 Iron Ferritin AST 286 H ALT 304 H Alkaline Phosphatase 124 H 08/18/18 06:00 Hgb Iron Ferritin AST 255 H ALT 379 H Alkaline Phosphatase 118 H Constitutional: Anxious Eyes: Yes: Conjunctiva Clear Neck: Yes: Supple Cardiovascular: Yes: Regular Rate and Rhythm Respiratory: Yes: Rhonchi (scattered bilaterally) ...Auscultate: Yes: Normoactive Bowel Sounds ...Palpate: Yes: Soft, Other (nontender) Edema: LLE: 2+, RLE: 2+ Neurological: Yes: Alert, Oriented Labs: CBC, BMP 08/18/18 06:00 08/18/18 06:00 INR, PTT INR 1.08 (0.83-1.09) 08/14/18 18:20 Laboratory Tests 08/14/18 08/16/18 08/16/18 18:20 06:00 06:00 PT with INR 12.80 CAL Screen Negative Smooth [facility] Intrp Hepatitis A Ab Total Negative Hep Bs Antigen Negative Hep Bs Antibody Non reactive Hep B Core Total Ab Negative 08/16/18 06:00 PT with INR CAL Screen [facility] Intrp 2 Hepatitis A Ab Total Hep Bs Antigen Hep Bs Antibody Hep B Core Total Ab Problem List - Problems (1) Cirrhosis of liver Assessment/Plan: Given her rising BNP, tricuspid regurgitation and pulmonary hypertension and previous liver biopsy results I believe that Josseline has 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 Her LFTs should improve when her cardiopulmonary status is optimized. Code(s): K74.60 - UNSPECIFIED CIRRHOSIS OF LIVER Qualifiers: Ascites presence: with ascites (2) Pulmonary hypertension Code(s): I27.20 - PULMONARY HYPERTENSION, UNSPECIFIED (3) Tricuspid valve insufficiency Code(s): I07.1 - RHEUMATIC TRICUSPID INSUFFICIENCY (4) Colon polyp Code(s): K63.5 - POLYP OF COLON (5) Angiodysplasia of gastrointestinal tract Assessment/Plan: I believe this explains her fecal occult positive stool. Code(s): K55.20 - ANGIODYSPLASIA OF COLON WITHOUT HEMORRHAGE (6) Ascites Assessment/Plan: I will increase the Aldactone to TID Code(s): R18.8 - OTHER ASCITES (7) CHF (congestive heart failure) Code(s): I50.9 - HEART FAILURE, UNSPECIFIED (8) COPD (chronic obstructive pulmonary disease) Code(s): J44.9 - CHRONIC OBSTRUCTIVE PULMONARY DISEASE, UNSPECIFIED (9) GI bleed Assessment/Plan: The relatively stable hemoglobin argues against a brisk bleed. Her occult bleeding is likely reflective of vascular ectasias found on her capsule endoscopy. Code(s): K92.2 - GASTROINTESTINAL HEMORRHAGE, UNSPECIFIED (10) Heme positive stool Code(s): R19.5 - OTHER FECAL ABNORMALITIES (11) Hypothyroid Code(s): E03.9 - HYPOTHYROIDISM, UNSPECIFIED
--- NOTE | 2018-08-18 17:07 | PN ---
Progress Note, Physician Chief Complaint: The patient complains of intermittent diarrhea and weakness. She denies chest pain, SOB at rest and palpitation. Tele shows atrial fibrillation with controlled VR: 80-100 BPM. History of Present Illness: 83 year-old woman with a PMHx of cirrhosis, fatty liver, COPD, chronic diastolic CHF, DM, asthma, CAD s/p CABG [address] [facility] (sees Dr Oropeza) sent to ED from Dr. Hernandez's office on 08/14/2018 for evaluation of fluid overload. She was recently discharged from [facility] 4-5 days before for COPD exacerbation/CHF, diuresed but does not feel better. No chest pain, orthopnea. Edema is worse as is abdominal distension. Noted with atrial fibrillation on ECG. Not on AC. - Current Medication List Current Medications: Active Medications Albuterol/Ipratropium (Duoneb -) 1 amp NEB RQID [facility] Last Admin: 08/18/18 12:46 Dose: 1 amp Aspirin (Asa -) 81 mg PO DAILY [facility] Last Admin: 08/18/18 09:29 Dose: 81 mg Atorvastatin Calcium (Lipitor -) 10 mg PO HS [facility] Last Admin: 08/17/18 21:20 Dose: 10 mg Budesonide (Pulmicort 0.25 Mg Nebulizer -) 1 amp NEB RBID [facility] Last Admin: 08/18/18 09:00 Dose: 1 amp Carvedilol (Coreg -) 12.5 mg PO BID [facility] Last Admin: 08/18/18 09:28 Dose: 12.5 mg Dextrose (D50w (Syringe) -) 25 gm IVPUSH PRN PRN PRN Reason: HYPOGLYCEMIA Furosemide (Lasix Injection -) 40 mg IVPUSH DAILY [facility] Last Admin: 08/18/18 09:28 Dose: 40 mg Heparin Sodium (Porcine) (Heparin -) 5,000 unit SQ BID [facility] Last Admin: 08/18/18 09:28 Dose: 5,000 unit Metronidazole (Flagyl 500mg Premixed Ivpb -) 500 mg in 100 mls @ 100 mls/hr IVPB Q8H-IV [facility] Last Admin: 08/18/18 09:27 Dose: 100 mls/hr Insulin Aspart (Novolog Vial Sliding Scale -) 1 vial SQ ACHS [facility]; Protocol Last Admin: 08/18/18 12:29 Dose: 6 units Insulin Detemir (Levemir Vial) 24 units SQ BID@0700,2200 [facility] Last Admin: 08/18/18 06:34 Dose: 24 units Lactobacillus Acidophilus (Bacid -) 1 tab PO BID [facility] Last Admin: 08/18/18 09:28 Dose: 1 tab Levothyroxine Sodium (Synthroid -) 125 mcg PO DAILY@0700 [facility] Last Admin: 08/18/18 06:29 Dose: 125 mcg Lidocaine/Aluminum/Magnesium/Simeth (Magic Mouthwash *Sjr Formula* -) 5 ml MM Q6HPO PRN PRN Reason: mouth pain Last Admin: 08/17/18 16:31 Dose: 5 ml Methylprednisolone Sodium Succinate (Solu-Medrol -) 20 mg IVPUSH Q8H-IV [facility] Last Admin: 08/18/18 09:28 Dose: 20 mg Pantoprazole Sodium (Protonix -) 40 mg PO DAILY [facility] Spironolactone (Aldactone -) 25 mg PO TID [facility] - Objective Vital Signs: Vital Signs Temperature 98.5 F 08/18/18 13:10 Pulse Rate 92 H 08/18/18 13:10 Respiratory Rate 16 08/18/18 13:10 Blood Pressure 108/57 L 08/18/18 13:10 O2 Sat by Pulse Oximetry (%) 98 08/18/18 09:00 General: Well developed. Chronic ill. No acute distress. Head: Normocephalic. Atraumatic, Eyes: PERRLA, EOMI. Sclerae anicteric. Conjunctivae pale. Neck: Supple. No JVD. No bruits. Heart: Normal S1, S2: Irregular rhythm and rate. No murmur. No gallop or rub. Lungs: Symmetrical air entry. Bibasilar crackles. No wheezing or rhonchi. Abdomen: Soft. Bowel sound positive. Non tender. No masses. Extremities: 1-2+ edema. No clubbing or cyanosis. PD 2+, equal bilaterally. Labs: CBC, BMP 08/18/18 06:00 08/18/18 06:00 INR, PTT INR 1.08 (0.83-1.09) 08/14/18 18:20 Assessment/Plan 83 year-old woman with a PMHx of cirrhosis, fatty liver, COPD, chronic diastolic CHF, DM, asthma, CAD s/p CABG [address] [facility] (sees Dr Oropeza) sent to ED from Dr. Hernandez's office on 08/14/2018 for evaluation of fluid overload. She was recently discharged from [facility] 4-5 days before for COPD exacerbation/CHF, diuresed but does not feel better. No chest pain, orthopnea. Edema is worse as is abdominal distension. Noted with atrial fibrillation on ECG. Not on AC. 1. Acute on chronic diastolic CHF-told of EF 50% at [facility], mild pulmonary congestion and mild to moderate leg edema. -Continue IV Lasix 40 mg daily and spironolactone 25 mg TID to keep Os > Is. -Monitor daily weight, Is, Os, electrolytes and renal funtion. 2. CAD s/p CABG -stable without angina or CHF symptoms. 3. Persistent atrial fibrillation with controlled VR. -she denies history but would get records from recent admission to [facility]. -Continue Coreg 12.5 bid. -Add digoxin 0.125 mg daily. -would defer AC for now until GI/liver assesses the patient for bleeding risk.
[2018-08-18] MEDS ORDERED: BUDESONIDE 0.5 MG/2 ML INH SUSP VIAL NEB ONE (20:04)
[2018-08-18] MEDS: ATORVASTATIN CA 10 MG TABLET (FP) PO SCH (21:12)
[2018-08-19] MEDS: methylPREDNISolone NA SUCC 40 MG/1 ML VIAL IVPUSH SCH ×3 (01:33→17:31)
[2018-08-19] MEDS: MAG HYDROX/ALH/SMC/DPHA/LIDO 240 ML MOUTHWASH MM PRN ×2 (01:36→20:10)
[2018-08-19] MEDS: INSULIN (LEVEMIR) 100 UNITS/ML UNITS SQ SCH ×2 (06:47→22:11)
[2018-08-19] MEDS: LEVOTHYROXINE NA 125 MCG TABLET (FP) PO SCH (06:48)
[2018-08-19] MEDS: SPIRONOLACTONE 25 MG TABLET (FP) PO SCH ×3 (06:48→22:15)
[2018-08-19] MEDS: INSULIN SLIDING SCALE (NOVOLOG) 1 VIAL SQ SCH ×4 (06:48→22:13)
[2018-08-19 07:20] LABS: BASO % 0.2 % (0-2.0); HEMATOCRIT 34.3 % (32.4-45.2); HEMOGLOBIN 10.9 GM/dL (10.7-15.3); LYMPH % 4.3 % (8-40); MCH 27.7 pg (25.7-33.7); MCHC 31.7 g/dl (32.0-36.0); MEAN CELL VOLUME 87.4 fl (80-96); MEAN PLT VOLUME 8.7 fl (7.5-11.1); MONO % 3.4 % (3.8-10.2); NEUT % 92.1 % (42.8-82.8); PLATELET COUNT 77 K/MM3 (134-434); RBC 3.93 M/mm3 (3.60-5.2); RDW 18.8 % (11.6-15.6); WHITE BLOOD COUNT 8.9 K/mm3 (4.0-10.0)
[2018-08-19 08:01] LABS: ALBUMIN 2.6 g/dl (3.4-5.0); ALK PHOS 127 U/L (45-117); ANION GAP 8 MMOL/L (8-16); BILIRUBIN,DIRECT 0.4 mg/dL (0.0-0.2); BILIRUBIN,TOTAL 0.7 mg/dL (0.2-1); BLOOD UREA NITROGEN 39 mg/dL (7-18); CALCIUM 8.5 mg/dL (8.5-10.1); CHLORIDE 107 mmol/L (98-107); CO2 27 mmol/L (21-32); CREATININE 1.2 mg/dL (0.55-1.3); GLUCOSE,RANDOM 126 mg/dL (74-106); POTASSIUM 4.4 mmol/L (3.5-5.1); SGOT/AST 1304 U/L (15-37); SGPT/ALT 1164 U/L (13-61); SODIUM 142 mmol/L (136-145); TOT PROT 5.4 g/dl (6.4-8.2)
[2018-08-19] MEDS: BUDESONIDE 0.25 MG/2ML INH SUSP VIAL NEB SCH ×2 (08:21→20:30)
[2018-08-19] MEDS: ALBUTEROL SO4 2.5/IPRATROPIUM 0.5 INH SOL 3 ML VIAL.NEB. NEB SCH ×4 (08:21→20:20)
[2018-08-19] MEDS ORDERED: PT OWN MED DRAWER 7, Y5N ONE (08:53)
[2018-08-19 09:39] LABS: ANISOCYTOSIS 1+; MACROCYTOSIS 0; PLATELET ESTIMATE DECREASED
[2018-08-19] MEDS: ASPIRIN 81 MG CHEWABLE TABLETS PO SCH (11:00)
[2018-08-19] MEDS: PANTOPRAZOLE 40 MG TABLET (FP) PO SCH (11:00)
[2018-08-19] MEDS: LACTOBACILLUS ACIDOPHILUS 1 TABLET PO SCH ×2 (11:00→22:14)
[2018-08-19] MEDS: CARVEDILOL 12.5 MG TABLET (FP) PO SCH ×2 (11:00→22:14)
[2018-08-19] MEDS: HEPARIN NA (PORCINE) 5,000 UNITS/ML 1ML VIAL SQ SCH ×2 (11:01→22:13)
[2018-08-19] MEDS: DIGOXIN 0.125 MG TABLET (FP) PO SCH (11:01)
[2018-08-19] MEDS: FUROSEMIDE 40 MG/4 ML INJECTABLE VIAL IVPUSH SCH (11:21)
[2018-08-19] MEDS ORDERED: DIPHENOXYLATE 2.5/ATROPINE.025 1 COMBO TABLET PO PRN (11:49)
--- NOTE | 2018-08-19 11:49 | PN ---
Progress Note (short form) - Note Progress Note: PULMONARY AWAKE/OOB TO CHAIR COMPLAINING OF DIARRHEA/ ADMITTING WEIGHT 167/TODAY 161 LBS AGAIN BGM 147 LFT'S CONTINUE TO RISE/NOW OVER 1000 VSS/AFEBRILE ANICTERIC END EXP WHEEZE B/L IMPROVED S1S2 BS+/DISTENDED 2+ EDEMA LABS/MEDS/NOTES/IMAGES REVIEWED GI EVAL GREATLY APPRECIATED WORKING DX FOR LFT'S IS CONGESTIVE HEPATOPATHY ALDACTONE INCREASED TO TID IMP COPD EXACERBATION RESOLVED PULMONARY HTN DIASTOLIC CHF/SEE ECHO REPORT CIRRHOSIS/ASCITES/RISING LFT'S CONGESTED LIVER FROM RIGHT SIDED FAILURE IDDM HYPOTHYROID MRI ABD DONE YESTERDAY CIRRHOSIS/ASCITES RELEASE SIGNED AND FAXED TO [facility] TO FAX RECORDS OF MOST RECENT ADMISSION PLAN IV LASIX/ALDACTONE PO INCREASED TO TID O2 INHALED BRONCHODILATORS MEDROL TO TAPER DAILY WTS F/U CHEST X-RAYS GLYCEMIC CONTROL STOOL C. DIFF/D/C RIFAXIMIN HAVE D/EAGLE STATIN AND FLAGYL PATIENT REQUESTING [place] ARREOLA MD
--- NOTE | 2018-08-19 12:24 | PN ---
Progress Note, Physician Chief Complaint: AWAKE ALERT EATING LUNCH COMFORTABLE - Current Medication List Current Medications: Active Medications Albuterol/Ipratropium (Duoneb -) 1 amp NEB RQID [facility] Last Admin: 08/19/18 08:21 Dose: 1 amp Aspirin (Asa -) 81 mg PO DAILY [facility] Last Admin: 08/19/18 11:00 Dose: 81 mg Budesonide (Pulmicort 0.25 Mg Nebulizer -) 1 amp NEB RBID [facility] Last Admin: 08/19/18 08:21 Dose: 1 amp Carvedilol (Coreg -) 12.5 mg PO BID [facility] Last Admin: 08/19/18 11:00 Dose: 12.5 mg Dextrose (D50w (Syringe) -) 25 gm IVPUSH PRN PRN PRN Reason: HYPOGLYCEMIA Digoxin (Lanoxin -) 0.125 mg PO DAILY [facility] Last Admin: 08/19/18 11:01 Dose: 0.125 mg Diphenoxylate HCl/Atropine (Lomotil -) 1 combo PO Q8H PRN PRN Reason: DIARRHEA Furosemide (Lasix Injection -) 40 mg IVPUSH DAILY [facility] Last Admin: 08/19/18 11:21 Dose: 40 mg Heparin Sodium (Porcine) (Heparin -) 5,000 unit SQ BID [facility] Last Admin: 08/19/18 11:01 Dose: 5,000 unit Insulin Aspart (Novolog Vial Sliding Scale -) 1 vial SQ [facility]; Protocol Last Admin: 08/19/18 12:17 Dose: Not Given Insulin Detemir (Levemir Vial) 24 units SQ BID@0700,2200 [facility] Last Admin: 08/19/18 06:47 Dose: 24 units Lactobacillus Acidophilus (Bacid -) 1 tab PO BID [facility] Last Admin: 08/19/18 11:00 Dose: 1 tab Levothyroxine Sodium (Synthroid -) 125 mcg PO DAILY@0700 [facility] Last Admin: 08/19/18 06:48 Dose: 125 mcg Lidocaine/Aluminum/Magnesium/Simeth (Magic Mouthwash *Sjr Formula* -) 5 ml MM Q6HPO PRN PRN Reason: mouth pain Last Admin: 08/19/18 01:36 Dose: 5 ml Methylprednisolone Sodium Succinate (Solu-Medrol -) 20 mg IVPUSH Q8H-IV [facility] Last Admin: 08/19/18 11:21 Dose: 20 mg Pantoprazole Sodium (Protonix -) 40 mg PO DAILY [facility] Last Admin: 08/19/18 11:00 Dose: 40 mg Spironolactone (Aldactone -) 25 mg PO TID [facility] Last Admin: 08/19/18 06:48 Dose: 25 mg - Objective Vital Signs: Vital Signs Temperature 98.0 F 08/19/18 06:00 Pulse Rate 75 08/19/18 11:01 Respiratory Rate 20 08/19/18 06:00 Blood Pressure 113/47 L 08/19/18 06:00 O2 Sat by Pulse Oximetry (%) 100 08/18/18 20:29 Constitutional: Yes: No Distress Eyes: Yes: WNL HENT: Yes: WNL Neck: Yes: WNL Cardiovascular: Yes: WNL Respiratory: Yes: WNL Gastrointestinal: Yes: WNL Genitourinary: Yes: WNL Musculoskeletal: Yes: WNL Extremities: Yes: WNL Peripheral Pulses WNL: Yes Integumentary: Yes: WNL Wound/Incision: Yes: Clean/Dry Neurological: Yes: WNL ...Motor Strength: WNL Psychiatric: Yes: WNL Labs: CBC, BMP 08/19/18 06:00 08/19/18 06:00 INR, PTT INR 1.08 (0.83-1.09) 08/14/18 18:20 Problem List - Problems (1) Angiodysplasia of gastrointestinal tract Code(s): K55.20 - ANGIODYSPLASIA OF COLON WITHOUT HEMORRHAGE (2) Arrhythmia Code(s): I49.9 - CARDIAC ARRHYTHMIA, UNSPECIFIED (3) Ascites Code(s): R18.8 - OTHER ASCITES (4) CHF (congestive heart failure) Code(s): I50.9 - HEART FAILURE, UNSPECIFIED (5) COPD (chronic obstructive pulmonary disease) Code(s): J44.9 - CHRONIC OBSTRUCTIVE PULMONARY DISEASE, UNSPECIFIED (6) Cirrhosis of liver Code(s): K74.60 - UNSPECIFIED CIRRHOSIS OF LIVER Qualifiers: Ascites presence: with ascites (7) Diabetes Code(s): E11.9 - TYPE 2 DIABETES MELLITUS WITHOUT COMPLICATIONS (8) Hypothyroid Code(s): E03.9 - HYPOTHYROIDISM, UNSPECIFIED Assessment/Plan CHECK THYROID FUNCTION OOB TO CHAIR NON-BLOODY BM GI F/U ON TELE NO ALARMS CARDIO EVAL STOP ALL MEDS THAT CROSS LIVER PATHWAY STATINS STOPPED LIVER CIRRHOSIS
--- NOTE | 2018-08-19 13:54 | PN ---
Progress Note, Physician Chief Complaint: The patient still has intermittent diarrhea and weakness. She denies chest pain , SOB at rest and palpitation. Tele shows atrial fibrillation with controlled VR: 80-100 BPM. History of Present Illness: 83 year-old woman with a PMHx of cirrhosis, fatty liver, COPD, chronic diastolic CHF, DM, asthma, CAD s/p CABG 2016 at [facility] (sees Dr Oropeza) sent to ED from Dr. Hernandez's office on 08/14/2018 for evaluation of fluid overload. She was recently discharged from [facility] 4-5 days before for COPD exacerbation/CHF, diuresed but does not feel better. No chest pain, orthopnea. Edema is worse as is abdominal distension. Noted with atrial fibrillation on ECG. Not on AC. - Current Medication List Current Medications: Active Medications Albuterol/Ipratropium (Duoneb -) 1 amp NEB RQID [facility] Last Admin: 08/19/18 12:38 Dose: 1 amp Aspirin (Asa -) 81 mg PO DAILY [facility] Last Admin: 08/19/18 11:00 Dose: 81 mg Budesonide (Pulmicort 0.25 Mg Nebulizer -) 1 amp NEB RBID [facility] Last Admin: 08/19/18 08:21 Dose: 1 amp Carvedilol (Coreg -) 12.5 mg PO BID [facility] Last Admin: 08/19/18 11:00 Dose: 12.5 mg Dextrose (D50w (Syringe) -) 25 gm IVPUSH PRN PRN PRN Reason: HYPOGLYCEMIA Digoxin (Lanoxin -) 0.125 mg PO DAILY [facility] Last Admin: 08/19/18 11:01 Dose: 0.125 mg Diphenoxylate HCl/Atropine (Lomotil -) 1 combo PO Q8H PRN PRN Reason: DIARRHEA Furosemide (Lasix Injection -) 40 mg IVPUSH DAILY [facility] Last Admin: 08/19/18 11:21 Dose: 40 mg Heparin Sodium (Porcine) (Heparin -) 5,000 unit SQ BID [facility] Last Admin: 08/19/18 11:01 Dose: 5,000 unit Insulin Aspart (Novolog Vial Sliding Scale -) 1 vial SQ [facility]; Protocol Last Admin: 08/19/18 12:17 Dose: Not Given Insulin Detemir (Levemir Vial) 24 units SQ BID@0700,2200 [facility] Last Admin: 08/19/18 06:47 Dose: 24 units Lactobacillus Acidophilus (Bacid -) 1 tab PO BID [facility] Last Admin: 08/19/18 11:00 Dose: 1 tab Levothyroxine Sodium (Synthroid -) 125 mcg PO DAILY@0700 [facility] Last Admin: 08/19/18 06:48 Dose: 125 mcg Lidocaine/Aluminum/Magnesium/Simeth (Magic Mouthwash *Sjr Formula* -) 5 ml MM Q6HPO PRN PRN Reason: mouth pain Last Admin: 08/19/18 01:36 Dose: 5 ml Methylprednisolone Sodium Succinate (Solu-Medrol -) 20 mg IVPUSH Q8H-IV [facility] Last Admin: 08/19/18 11:21 Dose: 20 mg Pantoprazole Sodium (Protonix -) 40 mg PO DAILY [facility] Last Admin: 08/19/18 11:00 Dose: 40 mg Spironolactone (Aldactone -) 25 mg PO TID [facility] Last Admin: 08/19/18 06:48 Dose: 25 mg - Objective Vital Signs: Vital Signs Temperature 98.8 F 08/19/18 10:00 Pulse Rate 75 08/19/18 11:01 Respiratory Rate 18 08/19/18 10:00 Blood Pressure 134/58 L 08/19/18 10:00 O2 Sat by Pulse Oximetry (%) 98 08/19/18 10:00 General: Well developed. Chronic ill. No acute distress. Head: Normocephalic. Atraumatic, Eyes: PERRLA, EOMI. Sclerae anicteric. Conjunctivae pale. Neck: Supple. No JVD. No bruits. Heart: Normal S1, S2: Irregular rhythm and rate. No murmur. No gallop or rub. Lungs: Symmetrical poor air entry. Bibasilar crackles. Scattered wheezing. Abdomen: Distended. Soft. Bowel sound positive. Non tender. No masses. Extremities: 2+ edema. No clubbing or cyanosis. . Labs: CBC, BMP 08/19/18 06:00 08/19/18 06:00 INR, PTT INR 1.08 (0.83-1.09) 08/14/18 18:20 Assessment/Plan 83 year-old woman with a PMHx of cirrhosis, fatty liver, COPD, chronic diastolic CHF, DM, asthma, CAD s/p CABG 2016 at [facility] (sees Dr Oropeza) sent to ED from Dr. Hernandez's office on 08/14/2018 for evaluation of fluid overload. She was recently discharged from [facility] 4-5 days before for COPD exacerbation/CHF, diuresed but does not feel better. No chest pain, orthopnea. Edema is worse as is abdominal distension. Noted with atrial fibrillation on ECG. Not on AC. 1. Acute on chronic diastolic CHF-told of EF 50% at [facility], mild pulmonary congestion and moderate leg edema. -Increase IV Lasix 40 mg to twice daily to keep Os > Is. -Continue spironolactone 25 mg TID. -Monitor daily weight, Is, Os, electrolytes and renal funtion. 2. CAD s/p CABG -stable without angina or CHF symptoms. 3. Persistent atrial fibrillation with controlled VR. -she denies history but would get records from recent admission to [facility]. -Continue Coreg 12.5 bid. -Continue digoxin 0.125 mg daily. -Would defer AC for now until GI/liver assesses the patient for bleeding risk.
[2018-08-19] MEDS ORDERED: INSULIN (NOVOLOG) ASPART 100 UNITS/ML 10ML VIAL ONE (17:31)
--- NOTE | 2018-08-19 19:08 | PN ---
GI Progress Note Subjective: GI NOte: Transaminases continue to rise but I believe this reflects continued cardiac congestive failure as I believe her ascites is increasing. Her INR remain normal as does her mentation. - Objective Vital Signs: Vital Signs Temperature 98.5 F 08/19/18 18:00 Pulse Rate 86 08/19/18 18:00 Respiratory Rate 19 08/19/18 18:00 Blood Pressure 101/56 L 08/19/18 18:00 O2 Sat by Pulse Oximetry (%) 98 08/19/18 10:00 Selected Entries 08/14/18 08/15/18 08/18/18 16:33 03:47 06:00 Weight 167 lb 157 lb 11.2 oz 161 lb 6 oz Laboratory Tests 08/19/18 06:00 Total Bilirubin 0.7 Direct Bilirubin 0.4 H AST 1304 H ALT 1164 H Alkaline Phosphatase 127 H Constitutional: Anxious Respiratory: Yes: Rales Gastrointestinal Inspection: Yes: Distention ...Auscultate: Yes: Hypoactive Bowel Sounds ...Palpate: Yes: Soft, Other (nontender) Labs: CBC, BMP 08/19/18 06:00 08/19/18 06:00 INR, PTT INR 1.08 (0.83-1.09) 08/14/18 18:20 Problem List - Problems (1) Cirrhosis of liver Assessment/Plan: I continue to suspect congestive hepatopathy. Will repeat sonogram to ascites degree of ascites. Code(s): K74.60 - UNSPECIFIED CIRRHOSIS OF LIVER Qualifiers: Ascites presence: with ascites (2) Pulmonary hypertension Code(s): I27.20 - PULMONARY HYPERTENSION, UNSPECIFIED (3) Tricuspid valve insufficiency Code(s): I07.1 - RHEUMATIC TRICUSPID INSUFFICIENCY (4) Colon polyp Code(s): K63.5 - POLYP OF COLON (5) Angiodysplasia of gastrointestinal tract Code(s): K55.20 - ANGIODYSPLASIA OF COLON WITHOUT HEMORRHAGE (6) Ascites Code(s): R18.8 - OTHER ASCITES (7) CHF (congestive heart failure) Code(s): I50.9 - HEART FAILURE, UNSPECIFIED (8) COPD (chronic obstructive pulmonary disease) Code(s): J44.9 - CHRONIC OBSTRUCTIVE PULMONARY DISEASE, UNSPECIFIED (9) GI bleed Code(s): K92.2 - GASTROINTESTINAL HEMORRHAGE, UNSPECIFIED (10) Heme positive stool Code(s): R19.5 - OTHER FECAL ABNORMALITIES (11) Hypothyroid Code(s): E03.9 - HYPOTHYROIDISM, UNSPECIFIED
[2018-08-19] MEDS ORDERED: BUDESONIDE 0.5 MG/2 ML INH SUSP VIAL NEB ONE (20:08)
[2018-08-20] MEDS: methylPREDNISolone NA SUCC 40 MG/1 ML VIAL IVPUSH SCH ×2 (01:53→09:59)
[2018-08-20] MEDS: INSULIN SLIDING SCALE (NOVOLOG) 1 VIAL SQ SCH ×4 (07:03→21:57)
[2018-08-20] MEDS: INSULIN (LEVEMIR) 100 UNITS/ML UNITS SQ SCH ×3 (07:03→21:57)
[2018-08-20] MEDS: SPIRONOLACTONE 25 MG TABLET (FP) PO SCH ×3 (07:03→21:53)
[2018-08-20] MEDS: LEVOTHYROXINE NA 125 MCG TABLET (FP) PO SCH (07:03)
[2018-08-20] MEDS: ALBUTEROL SO4 2.5/IPRATROPIUM 0.5 INH SOL 3 ML VIAL.NEB. NEB SCH ×4 (07:25→19:29)
[2018-08-20] MEDS: BUDESONIDE 0.25 MG/2ML INH SUSP VIAL NEB SCH ×2 (07:35→19:29)
[2018-08-20 07:53] LABS: BASO % 0.1 % (0-2.0); HEMATOCRIT 33.6 % (32.4-45.2); HEMOGLOBIN 10.6 GM/dL (10.7-15.3); LYMPH % 4.2 % (8-40); MCH 27.6 pg (25.7-33.7); MCHC 31.6 g/dl (32.0-36.0); MEAN CELL VOLUME 87.3 fl (80-96); MEAN PLT VOLUME 9.2 fl (7.5-11.1); NEUT % 91.7 % (42.8-82.8); PLATELET COUNT 68 K/MM3 (134-434); RBC 3.85 M/mm3 (3.60-5.2); WHITE BLOOD COUNT 7.2 K/mm3 (4.0-10.0)
[2018-08-20 08:34] LABS: ALBUMIN 2.3 g/dl (3.4-5.0); ALK PHOS 185 U/L (45-117); ANION GAP 6 MMOL/L (8-16); BILIRUBIN,DIRECT 0.3 mg/dL (0.0-0.2); BILIRUBIN,TOTAL 0.8 mg/dL (0.2-1); BLOOD UREA NITROGEN 43 mg/dL (7-18); CHLORIDE 103 mmol/L (98-107); CO2 28 mmol/L (21-32); CREATININE 1.2 mg/dL (0.55-1.3); GAMMA GLUTAMYL TRANSPEPTIDASE 408 U/L (5-85); GLUCOSE,RANDOM 286 mg/dL (74-106); POTASSIUM 5.1 mmol/L (3.5-5.1); SGOT/AST 872 U/L (15-37); SODIUM 137 mmol/L (136-145); TOT PROT 4.9 g/dl (6.4-8.2)
[2018-08-20 08:35] LABS: SGPT/ALT 1640 U/L (13-61)
[2018-08-20 09:51] LABS: ACANTHOCYTES 0; ANISOCYTOSIS 0; HELMET CELLS 0; HOWELL-JOLLY BODIES 0; MACROCYTOSIS 0; OVALOCYTE 0; PLATELET ESTIMATE DECREASED; ROULEAU 0; SICKELED CELLS 0; TARGET CELLS 0; TEAR DROP CELLS 0; TOXIC GRANULATION 0
[2018-08-20] MEDS: CARVEDILOL 12.5 MG TABLET (FP) PO SCH ×2 (09:59→21:56)
[2018-08-20] MEDS: PANTOPRAZOLE 40 MG TABLET (FP) PO SCH (09:59)
[2018-08-20] MEDS: DIGOXIN 0.125 MG TABLET (FP) PO SCH (09:59)
[2018-08-20] MEDS: ASPIRIN 81 MG CHEWABLE TABLETS PO SCH (09:59)
[2018-08-20] MEDS: LACTOBACILLUS ACIDOPHILUS 1 TABLET PO SCH ×2 (09:59→21:56)
[2018-08-20] MEDS: HEPARIN NA (PORCINE) 5,000 UNITS/ML 1ML VIAL SQ SCH ×2 (09:59→21:56)
[2018-08-20] MEDS: FUROSEMIDE 40 MG/4 ML INJECTABLE VIAL IVPUSH SCH ×2 (09:59→13:39)
--- NOTE | 2018-08-20 11:14 | PN ---
Progress Note, Physician Chief Complaint: SOB COPD exacerbation History of Present Illness: NAD sitting in chair Seen by Pulmonary and GI MRI abd showed CBD dilatation 8 mm labs to be done today Medrol tapering dose for COPD exacerbation Started on Lomotil for diarrhea - Current Medication List Current Medications: Active Medications Albuterol/Ipratropium (Duoneb -) 1 amp NEB RQID [facility] Last Admin: 08/20/18 07:25 Dose: 1 amp Aspirin (Asa -) 81 mg PO DAILY [facility] Last Admin: 08/20/18 09:59 Dose: 81 mg Budesonide (Pulmicort 0.25 Mg Nebulizer -) 1 amp NEB RBID [facility] Last Admin: 08/20/18 07:35 Dose: Not Given Carvedilol (Coreg -) 12.5 mg PO BID [facility] Last Admin: 08/20/18 09:59 Dose: 12.5 mg Dextrose (D50w (Syringe) -) 25 gm IVPUSH PRN PRN PRN Reason: HYPOGLYCEMIA Digoxin (Lanoxin -) 0.125 mg PO DAILY [facility] Last Admin: 08/20/18 09:59 Dose: 0.125 mg Diphenoxylate HCl/Atropine (Lomotil -) 1 combo PO Q8H PRN PRN Reason: DIARRHEA Last Admin: 08/19/18 22:14 Dose: 1 combo Furosemide (Lasix Injection -) 40 mg IVPUSH BID [facility] Heparin Sodium (Porcine) (Heparin -) 5,000 unit SQ BID [facility] Last Admin: 08/20/18 09:59 Dose: 5,000 unit Insulin Aspart (Novolog Vial Sliding Scale -) 1 vial SQ [facility]; Protocol Last Admin: 08/20/18 07:03 Dose: Not Given Insulin Detemir (Levemir Vial) 24 units SQ BID@0700,2200 [facility] Last Admin: 08/20/18 07:03 Dose: Not Given Lactobacillus Acidophilus (Bacid -) 1 tab PO BID [facility] Last Admin: 08/20/18 09:59 Dose: 1 tab Levothyroxine Sodium (Synthroid -) 125 mcg PO DAILY@0700 [facility] Last Admin: 08/20/18 07:03 Dose: 125 mcg Lidocaine/Aluminum/Magnesium/Simeth (Magic Mouthwash *Sjr Formula* -) 5 ml MM Q6HPO PRN PRN Reason: mouth pain Last Admin: 08/19/18 20:10 Dose: 5 ml Methylprednisolone Sodium Succinate (Solu-Medrol -) 20 mg IVPUSH Q8H-IV [facility] Last Admin: 08/20/18 09:59 Dose: 20 mg Pantoprazole Sodium (Protonix -) 40 mg PO DAILY [facility] Last Admin: 08/20/18 09:59 Dose: 40 mg Spironolactone (Aldactone -) 25 mg PO TID [facility] Last Admin: 08/20/18 07:03 Dose: 25 mg - Objective Vital Signs: Vital Signs Temperature 97.8 F 08/20/18 06:00 Pulse Rate 83 08/20/18 09:59 Respiratory Rate 19 08/20/18 06:00 Blood Pressure 110/59 L 08/20/18 06:00 O2 Sat by Pulse Oximetry (%) 99 08/20/18 09:00 Constitutional: Yes: Well Nourished, No Distress, Calm Cardiovascular: Yes: Regular Rate and Rhythm Respiratory: Yes: Regular Genitourinary: Yes: WNL Musculoskeletal: Yes: WNL Extremities: Yes: WNL Edema: Yes Edema: LLE: 1+, RLE: 1+ Peripheral Pulses WNL: Yes Neurological: Yes: Alert, Oriented Psychiatric: Yes: Alert, Oriented Labs: CBC, BMP 08/20/18 06:00 08/20/18 06:00 INR, PTT INR 1.08 (0.83-1.09) 08/14/18 18:20 Problem List - Problems (1) GI bleed Assessment/Plan: -Guauac positive -no over bleeding -Continue protonix 40 mg PO daily -Seen by GI -recommended Endoscopy when stable -h/h stable- monitor for now -transfuse if Hg<8.0 Code(s): K92.2 - GASTROINTESTINAL HEMORRHAGE, UNSPECIFIED (2) Ascites Assessment/Plan: -2/2 chronic liver cirrhosis -Spironolactone 25 mg po daily added in addition to furosemide 40 mg, which is also increased to BID -daily weights -I&O's Code(s): R18.8 - OTHER ASCITES (3) COPD (chronic obstructive pulmonary disease) Assessment/Plan: -Nasal O2 -Seen by Pulmonary -On medrol 20 mg IV Q6H -Bronchodilators Code(s): J44.9 - CHRONIC OBSTRUCTIVE PULMONARY DISEASE, UNSPECIFIED (4) Diabetes Assessment/Plan: -A1c at 8.7 -Endocrinology on board -BGM AC HS -Diabetic low sodium diet -Novolog sliding scale -Levemir 24 U BID -D50 IVP PRN for symptomatic BGM <70 mg/dl Code(s): E11.9 - TYPE 2 DIABETES MELLITUS WITHOUT COMPLICATIONS (5) Diarrhea Assessment/Plan: -Stools for cdiff (recent hospital admission), O&P, leukocytes and culture- negative so far -Bacid BID -Lomotil Q8h PRN for diarrhea Code(s): R19.7 - DIARRHEA, UNSPECIFIED (6) Cirrhosis of liver Assessment/Plan: -chronic -has fatty liver -Serology negative do far -Seen by GI -MRCP showed CBD dilation 8 mm -Repeat U/S shows small ascitis Code(s): K74.60 - UNSPECIFIED CIRRHOSIS OF LIVER Qualifiers: Ascites presence: with ascites Assessment/Plan see problem list Hold AC due to positive guaiac, it is unclear if patient has history of Afib Tre's Physical therapy- did well with PT Methotrexate 5 mg once a week ordered
--- NOTE | 2018-08-20 11:30 | CONSULT ---
Consult - text type - Consultation Consultation Note: Renal Consult for STEFANIE/CKD This is a 83 year old woman with history of CHF, CAD s/p CABG, Cirrhosis, fatty liver, COPD, [place]ham who presented with sob with fluid overload with abnormal renal function. PMhx: as above Allergies: NKDA Family Hx: NC Social Hx: No T/A/D ROS: as per HPI Home Medications Medication Instructions Recorded Aspirin 81 mg PO DAILY 08/14/18 Atorvastatin Ca [Lipitor] 10 mg PO HS 08/14/18 Budesonide [Pulmicort 0.25 mg -] 1 neb PO BID 08/14/18 Carvedilol [Coreg -] 3.125 mg PO BID 08/14/18 Cholecalciferol (Vitamin D3) 1,000 unit PO DAILY 08/14/18 [Vitamin D3] Furosemide 40 mg PO DAILY 08/14/18 Insulin Glargine,Hum.rec.anlog 100 unit SQ HS 08/14/18 [Lantus] Insulin Lispro [Humalog] 6 units SQ ASDIR 08/14/18 Levothyroxine [Synthroid -] 125 mcg PO DAILY 08/14/18 Magnesium Oxide [Mag-Oxide] 400 mg PO BID 08/14/18 Metformin HCl [Metformin HCl ER] 1,000 mg PO DAILY 08/14/18 Prednisone 10 mg PO DAILY 08/14/18 Repaglinide 1 mg PO HS 08/14/18 Vital Signs Temperature 98.0 F 08/20/18 10:00 Pulse Rate 83 08/20/18 10:00 Respiratory Rate 18 08/20/18 10:00 Blood Pressure 126/58 L 08/20/18 10:00 O2 Sat by Pulse Oximetry (%) 99 08/20/18 09:00 Intake & Output 08/17/18 08/18/18 08/19/18 08/20/18 23:59 23:59 23:59 23:59 Intake Total 1460 630 250 Output Total 3 Balance 1457 630 250 Weight 72.688 kg 73.198 kg 73.198 kg 72.983 kg CBC, BMP 08/20/18 06:00 08/20/18 06:00 Current Medications Albuterol/Ipratropium (Duoneb -) 1 amp NEB RQID [facility] Last Admin: 08/20/18 07:25 Dose: 1 amp Aspirin (Asa -) 81 mg PO DAILY [facility] Last Admin: 08/20/18 09:59 Dose: 81 mg Budesonide (Pulmicort 0.25 Mg Nebulizer -) 1 amp NEB RBID [facility] Last Admin: 08/20/18 07:35 Dose: Not Given Carvedilol (Coreg -) 12.5 mg PO BID [facility] Last Admin: 08/20/18 09:59 Dose: 12.5 mg Dextrose (D50w (Syringe) -) 25 gm IVPUSH PRN PRN PRN Reason: HYPOGLYCEMIA Digoxin (Lanoxin -) 0.125 mg PO DAILY [facility] Last Admin: 08/20/18 09:59 Dose: 0.125 mg Diphenoxylate HCl/Atropine (Lomotil -) 1 combo PO Q8H PRN PRN Reason: DIARRHEA Last Admin: 08/19/18 22:14 Dose: 1 combo Furosemide (Lasix Injection -) 40 mg IVPUSH BID [facility] Heparin Sodium (Porcine) (Heparin -) 5,000 unit SQ BID [facility] Last Admin: 08/20/18 09:59 Dose: 5,000 unit Insulin Aspart (Novolog Vial Sliding Scale -) 1 vial SQ [facility]; Protocol Last Admin: 08/20/18 07:03 Dose: Not Given Insulin Detemir (Levemir Vial) 24 units SQ BID@0700,2200 [facility] Last Admin: 08/20/18 07:03 Dose: Not Given Lactobacillus Acidophilus (Bacid -) 1 tab PO BID [facility] Last Admin: 08/20/18 09:59 Dose: 1 tab Levothyroxine Sodium (Synthroid -) 125 mcg PO DAILY@0700 [facility] Last Admin: 08/20/18 07:03 Dose: 125 mcg Lidocaine/Aluminum/Magnesium/Simeth (Magic Mouthwash *Sjr Formula* -) 5 ml MM Q6HPO PRN PRN Reason: mouth pain Last Admin: 08/19/18 20:10 Dose: 5 ml Methylprednisolone Sodium Succinate (Solu-Medrol -) 20 mg IVPUSH Q8H-IV [facility] Last Admin: 08/20/18 09:59 Dose: 20 mg Pantoprazole Sodium (Protonix -) 40 mg PO DAILY [facility] Last Admin: 08/20/18 09:59 Dose: 40 mg Spironolactone (Aldactone -) 25 mg PO TID [facility] Last Admin: 08/20/18 07:03 Dose: 25 mg 83 year old woman with history of CHF, CAD s/p CABG, Cirrhosis, fatty liver, COPD, [place] who presented with sob with fluid overload with abnormal renal function. #STEFANIE vs. CKD with fluid overload (from HRS vs. CRS vs. intrinsic renal dysfunction) #CHF exacerbation #Cirrhosis with ascities #COPD exacerbation #Anemia #Thrombocytopenia in setting of liver disease Renal function essentially stable thus far this admission Check Urine studies for FeUrea and UPCR to eval for any intrinsic renal dysfunction Agree with increased IV diuretics + aldactone given persistent edema Would withhold any ROSEMARIE/ARB until stable oral diuretic dose is obtained Low salt diet GI work up for liver dysfunction/cirrhosis on going Taper steroids as per pulmonary Check iron studies trend plts counts Thank you Will follow Gustavo Claros DO
--- NOTE | 2018-08-20 12:18 | PN ---
Progress Note (short form) - Note Progress Note: PULMONARY States breathing is better. +nonproductive cough. No chest pain. Vital Signs Period Temp Pulse Resp BP Sys/Carrion Pulse Ox Last 24 Hr 97.8 F-98.5 F 79-86 18-19 100-126/53-60 98-99 Gen: NAD in chair Heart: RRR Lung: decreased breath sounds at the bases Abd: soft, nontender Ext: +edema CBC, BMP 08/20/18 06:00 08/20/18 06:00 Active Medications Albuterol/Ipratropium (Duoneb -) 1 amp NEB RQID [facility] Last Admin: 08/20/18 11:24 Dose: 1 amp Aspirin (Asa -) 81 mg PO DAILY [facility] Last Admin: 08/20/18 09:59 Dose: 81 mg Budesonide (Pulmicort 0.25 Mg Nebulizer -) 1 amp NEB RBID [facility] Last Admin: 08/20/18 07:35 Dose: Not Given Carvedilol (Coreg -) 12.5 mg PO BID [facility] Last Admin: 08/20/18 09:59 Dose: 12.5 mg Dextrose (D50w (Syringe) -) 25 gm IVPUSH PRN PRN PRN Reason: HYPOGLYCEMIA Digoxin (Lanoxin -) 0.125 mg PO DAILY [facility] Last Admin: 08/20/18 09:59 Dose: 0.125 mg Diphenoxylate HCl/Atropine (Lomotil -) 1 combo PO Q8H PRN PRN Reason: DIARRHEA Last Admin: 08/19/18 22:14 Dose: 1 combo Furosemide (Lasix Injection -) 40 mg IVPUSH BIDLASIX [facility] Heparin Sodium (Porcine) (Heparin -) 5,000 unit SQ BID [facility] Last Admin: 08/20/18 09:59 Dose: 5,000 unit Insulin Aspart (Novolog Vial Sliding Scale -) 1 vial SQ ACHS [facility]; Protocol Last Admin: 08/20/18 11:31 Dose: 10 units Insulin Detemir (Levemir Vial) 24 units SQ BID@0700,2200 [facility] Last Admin: 08/20/18 11:32 Dose: 24 units Lactobacillus Acidophilus (Bacid -) 1 tab PO BID [facility] Last Admin: 08/20/18 09:59 Dose: 1 tab Levothyroxine Sodium (Synthroid -) 125 mcg PO DAILY@0700 [facility] Last Admin: 08/20/18 07:03 Dose: 125 mcg Lidocaine/Aluminum/Magnesium/Simeth (Magic Mouthwash *Sjr Formula* -) 5 ml MM Q6HPO PRN PRN Reason: mouth pain Last Admin: 08/19/18 20:10 Dose: 5 ml Methotrexate (Mexate -) 5 mg PO Q7D [facility] Methylprednisolone Sodium Succinate (Solu-Medrol -) 20 mg IVPUSH Q8H-IV [facility] Last Admin: 08/20/18 09:59 Dose: 20 mg Pantoprazole Sodium (Protonix -) 40 mg PO DAILY [facility] Last Admin: 08/20/18 09:59 Dose: 40 mg Spironolactone (Aldactone -) 25 mg PO TID [facility] Last Admin: 08/20/18 07:03 Dose: 25 mg A/P Acute on Chronic Diastolic Heart Failure Acute on Chronic Renal Failure Acute COPD Exacerbation CAD s/p CABG Liver Cirrhosis Thrombocytopenia - continue lasix, aldactone - monitor urine output, creatinine - daily weights - can taper off medrol - inhaled bronchodilators - O2 to keep Spo2 >90% - DVT prophylaxis
[2018-08-20] MEDS ORDERED: METHOTREXATE 2.5 MG TABLET PO SCH (13:00)
--- NOTE | 2018-08-20 15:53 | PN ---
Progress Note, Physician Chief Complaint: Palpitations History of Present Illness: 83 year-old woman with a PMHx of cirrhosis, fatty liver, COPD, chronic diastolic CHF, DM, asthma, CAD s/p CABG 2016 at [facility] (sees Dr Oropeza) sent to ED from Dr. Hernandez's office on 08/14/2018 for evaluation of fluid overload. She was recently discharged from [facility] 4-5 days before for COPD exacerbation/CHF, diuresed but does not feel better. No chest pain, orthopnea. Edema is worse as is abdominal distension. Noted with atrial fibrillation on ECG. Not on AC. 08/20/18 LUNA is at baseline - Current Medication List Current Medications: Active Medications Albuterol/Ipratropium (Duoneb -) 1 amp NEB RQID [facility] Last Admin: 08/20/18 11:24 Dose: 1 amp Aspirin (Asa -) 81 mg PO DAILY [facility] Last Admin: 08/20/18 09:59 Dose: 81 mg Budesonide (Pulmicort 0.25 Mg Nebulizer -) 1 amp NEB RBID [facility] Last Admin: 08/20/18 07:35 Dose: Not Given Carvedilol (Coreg -) 12.5 mg PO BID [facility] Last Admin: 08/20/18 09:59 Dose: 12.5 mg Dextrose (D50w (Syringe) -) 25 gm IVPUSH PRN PRN PRN Reason: HYPOGLYCEMIA Digoxin (Lanoxin -) 0.125 mg PO DAILY [facility] Last Admin: 08/20/18 09:59 Dose: 0.125 mg Diphenoxylate HCl/Atropine (Lomotil -) 1 combo PO Q8H PRN PRN Reason: DIARRHEA Last Admin: 08/19/18 22:14 Dose: 1 combo Furosemide (Lasix Injection -) 40 mg IVPUSH BIDLASIX [facility] Last Admin: 08/20/18 13:39 Dose: 40 mg Heparin Sodium (Porcine) (Heparin -) 5,000 unit SQ BID [facility] Last Admin: 08/20/18 09:59 Dose: 5,000 unit Insulin Aspart (Novolog Vial Sliding Scale -) 1 vial SQ [facility]; Protocol Last Admin: 08/20/18 11:31 Dose: 10 units Insulin Detemir (Levemir Vial) 24 units SQ BID@0700,2200 [facility] Last Admin: 08/20/18 11:32 Dose: 24 units Lactobacillus Acidophilus (Bacid -) 1 tab PO BID [facility] Last Admin: 08/20/18 09:59 Dose: 1 tab Levothyroxine Sodium (Synthroid -) 125 mcg PO DAILY@0700 [facility] Last Admin: 08/20/18 07:03 Dose: 125 mcg Lidocaine/Aluminum/Magnesium/Simeth (Magic Mouthwash *Sjr Formula* -) 5 ml MM Q6HPO PRN PRN Reason: mouth pain Last Admin: 08/19/18 20:10 Dose: 5 ml Methotrexate (Mexate -) 5 mg PO Q7D [facility] Last Admin: 08/20/18 13:39 Dose: 5 mg Pantoprazole Sodium (Protonix -) 40 mg PO DAILY [facility] Last Admin: 08/20/18 09:59 Dose: 40 mg Prednisone (Deltasone -) 20 mg PO DAILY [facility] Spironolactone (Aldactone -) 25 mg PO TID [facility] Last Admin: 08/20/18 13:40 Dose: 25 mg - Objective Vital Signs: Vital Signs Temperature 97.6 F 08/20/18 14:18 Pulse Rate 99 H 08/20/18 14:18 Respiratory Rate 22 H 08/20/18 14:18 Blood Pressure 106/40 L 08/20/18 14:18 O2 Sat by Pulse Oximetry (%) 99 08/20/18 09:00 Constitutional: Yes: No Distress Eyes: Yes: WNL Neck: Yes: WNL Cardiovascular: Yes: Pulse Irregular (No mumurs) Respiratory: Yes: Rhonchi (Mild bilatera;) Gastrointestinal: Yes: Soft Edema: LLE: Trace, RLE: Trace Neurological: Yes: Alert, Oriented Labs: CBC, BMP 08/20/18 06:00 08/20/18 06:00 INR, PTT INR 1.08 (0.83-1.09) 08/14/18 18:20 Assessment/Plan 83 year-old woman with a PMHx of cirrhosis, fatty liver, COPD, chronic diastolic CHF, DM, asthma, CAD s/p CABG 2016 at [facility] (sees Dr Oropeza) sent to ED from Dr. Hernandez's office on 08/14/2018 for evaluation of fluid overload. She was recently discharged from [facility] 4-5 days before for COPD exacerbation/CHF, diuresed but does not feel better. No chest pain, orthopnea. Edema is worse as is abdominal distension. Noted with atrial fibrillation on ECG. Not on AC. 1. Acute on chronic diastolic CHF-told of EF 50% at [facility], mild pulmonary congestion and moderate leg edema. -Would change to Lasix PO 80 mg daily -Continue spironolactone 25 mg TID. 2. CAD s/p CABG -stable without angina or CHF symptoms. 3. Persistent atrial fibrillation with controlled VR. -Continue Coreg 12.5 bid. -Continue digoxin 0.125 mg daily. -Would defer AC for now until GI/liver assesses the patient for bleeding risk.
[2018-08-20] MEDS ORDERED: PT OWN MED DRAWER 7, Y5N ONE (19:08)
--- NOTE | 2018-08-20 21:49 | PN ---
GI Progress Note Subjective: GI NOte: Ascites remains minimal of sonogram. LFTs appear to have peaked. Such a high rise raises the possibility of a DILI. - Objective Vital Signs: Vital Signs Temperature 97.9 F 08/20/18 21:41 Pulse Rate 63 08/20/18 21:41 Respiratory Rate 16 08/20/18 21:41 Blood Pressure 128/58 L 08/20/18 21:41 O2 Sat by Pulse Oximetry (%) 99 08/20/18 09:00 Laboratory Tests 08/14/18 08/17/18 08/19/18 17:03 13:40 06:00 Total Bilirubin Direct Bilirubin GGT AST 286 H 1304 H ALT 86 H 304 H 1164 H Alkaline Phosphatase 08/20/18 06:00 Total Bilirubin 0.8 Direct Bilirubin 0.3 H GGT 408 H AST ALT 1640 H Alkaline Phosphatase 185 H Constitutional: No Distress ...Auscultate: Yes: Normoactive Bowel Sounds ...Palpate: Yes: Soft, Other (nontender) Labs: CBC, BMP 08/20/18 06:00 08/20/18 06:00 INR, PTT INR 1.08 (0.83-1.09) 08/14/18 18:20 Problem List - Problems (1) Cirrhosis of liver Assessment/Plan: Ananya remains at risk of failing into liver failure if this transaminase levels persist. The severe degree raises the possibility of a DILI from a previous drug as her current regimen does not include an obvious hepatotoxic agent. Upon further questioning she tells me that she had been on an antibiotic to suppress recurrent UTIs for the better part of this year. When I names a few such agents she believes she may have been on nitrofurantoin. This is a hepatotoxic agent. Will follow LFTs closely. Her daughter will get us the name of the drug in question. I told her that she may need transfer to a liver center although she is not a candidate for a liver transplant Code(s): K74.60 - UNSPECIFIED CIRRHOSIS OF LIVER Qualifiers: Ascites presence: with ascites (2) Pulmonary hypertension Code(s): I27.20 - PULMONARY HYPERTENSION, UNSPECIFIED (3) Tricuspid valve insufficiency Code(s): I07.1 - RHEUMATIC TRICUSPID INSUFFICIENCY (4) Colon polyp Code(s): K63.5 - POLYP OF COLON (5) Angiodysplasia of gastrointestinal tract Code(s): K55.20 - ANGIODYSPLASIA OF COLON WITHOUT HEMORRHAGE (6) Ascites Code(s): R18.8 - OTHER ASCITES (7) CHF (congestive heart failure) Code(s): I50.9 - HEART FAILURE, UNSPECIFIED (8) COPD (chronic obstructive pulmonary disease) Code(s): J44.9 - CHRONIC OBSTRUCTIVE PULMONARY DISEASE, UNSPECIFIED (9) GI bleed Code(s): K92.2 - GASTROINTESTINAL HEMORRHAGE, UNSPECIFIED (10) Heme positive stool Code(s): R19.5 - OTHER FECAL ABNORMALITIES (11) Hypothyroid Code(s): E03.9 - HYPOTHYROIDISM, UNSPECIFIED
--- NOTE | 2018-08-20 21:58 | PN ---
Progress Note (short form) - Note Progress Note: GI : I just noted that Rylie got Methotrexate today. Rylie tells me that she takes it for rheumatoid arthritis. This is hepatotoxic beyond a cumulative dose which her manager immunology should know. Please do not give this drug until liver functions normalize. Problem List - Problems (1) Cirrhosis of liver Code(s): K74.60 - UNSPECIFIED CIRRHOSIS OF LIVER Qualifiers: Ascites presence: with ascites (2) Pulmonary hypertension Code(s): I27.20 - PULMONARY HYPERTENSION, UNSPECIFIED (3) Tricuspid valve insufficiency Code(s): I07.1 - RHEUMATIC TRICUSPID INSUFFICIENCY (4) Colon polyp Code(s): K63.5 - POLYP OF COLON (5) Angiodysplasia of gastrointestinal tract Code(s): K55.20 - ANGIODYSPLASIA OF COLON WITHOUT HEMORRHAGE (6) Ascites Code(s): R18.8 - OTHER ASCITES (7) CHF (congestive heart failure) Code(s): I50.9 - HEART FAILURE, UNSPECIFIED (8) COPD (chronic obstructive pulmonary disease) Code(s): J44.9 - CHRONIC OBSTRUCTIVE PULMONARY DISEASE, UNSPECIFIED (9) GI bleed Code(s): K92.2 - GASTROINTESTINAL HEMORRHAGE, UNSPECIFIED (10) Heme positive stool Code(s): R19.5 - OTHER FECAL ABNORMALITIES (11) Hypothyroid Code(s): E03.9 - HYPOTHYROIDISM, UNSPECIFIED
[2018-08-20] MEDS: MAG HYDROX/ALH/SMC/DPHA/LIDO 240 ML MOUTHWASH MM PRN (22:00)
[2018-08-21 00:06] LABS: TRANSGLUTAMINASE IGA < 2 U/mL (0-3); TRANSGLUTAMINASE IGG < 2 U/mL (0-5)
[2018-08-21] MEDS ORDERED: PT OWN MED DRAWER 7, Y5N ONE ×4 (06:24→22:20)
[2018-08-21] MEDS: INSULIN (LEVEMIR) 100 UNITS/ML UNITS SQ SCH ×2 (06:45→21:44)
[2018-08-21] MEDS: FUROSEMIDE 40 MG/4 ML INJECTABLE VIAL IVPUSH SCH ×3 (06:45→16:17)
[2018-08-21] MEDS: SPIRONOLACTONE 25 MG TABLET (FP) PO SCH ×3 (06:45→21:45)
[2018-08-21] MEDS: LEVOTHYROXINE NA 125 MCG TABLET (FP) PO SCH (06:47)
[2018-08-21] MEDS: INSULIN SLIDING SCALE (NOVOLOG) 1 VIAL SQ SCH ×4 (06:47→21:44)
[2018-08-21 06:56] LABS: BASO % 0.4 % (0-2.0); EOS % 1.3 % (0-4.5); HEMATOCRIT 35.2 % (32.4-45.2); HEMOGLOBIN 11.2 GM/dL (10.7-15.3); LYMPH % 9.9 % (8-40); MCH 27.8 pg (25.7-33.7); MCHC 31.9 g/dl (32.0-36.0); MEAN CELL VOLUME 87.2 fl (80-96); MEAN PLT VOLUME 9.1 fl (7.5-11.1); MONO % 6.7 % (3.8-10.2); NEUT % 81.7 % (42.8-82.8); PLATELET COUNT 82 K/MM3 (134-434); RBC 4.03 M/mm3 (3.60-5.2); RDW 18.4 % (11.6-15.6); WHITE BLOOD COUNT 9.2 K/mm3 (4.0-10.0)
[2018-08-21] MEDS ORDERED: INSULIN (NOVOLOG) ASPART 100 UNITS/ML 10ML VIAL ONE ×3 (07:03→21:18)
[2018-08-21] MEDS ORDERED: INSULIN (LEVEMIR) 100 UNITS/ML UNITS SQ ONE (07:03)
[2018-08-21 07:15] LABS: INR 1.49 (0.83-1.09); PROTHROMBIN TIME (PATIENT) 17.7 SEC (9.7-13.0)
[2018-08-21] MEDS: ALBUTEROL SO4 2.5/IPRATROPIUM 0.5 INH SOL 3 ML VIAL.NEB. NEB SCH ×4 (07:45→20:34)
[2018-08-21] MEDS: BUDESONIDE 0.25 MG/2ML INH SUSP VIAL NEB SCH ×2 (07:45→20:34)
[2018-08-21 08:12] LABS: ALBUMIN 2.3 g/dl (3.4-5.0); ALK PHOS 180 U/L (45-117); ANION GAP 5 MMOL/L (8-16); BILIRUBIN,TOTAL 0.7 mg/dL (0.2-1); BLOOD UREA NITROGEN 43 mg/dL (7-18); CALCIUM 8.4 mg/dL (8.5-10.1); CHLORIDE 104 mmol/L (98-107); CO2 28 mmol/L (21-32); CREATININE 1.2 mg/dL (0.55-1.3); GLUCOSE,RANDOM 167 mg/dL (74-106); POTASSIUM 4.3 mmol/L (3.5-5.1); SGOT/AST 286 U/L (15-37); SGPT/ALT 1093 U/L (13-61); SODIUM 138 mmol/L (136-145); TOT PROT 4.9 g/dl (6.4-8.2)
[2018-08-21 08:13] LABS: ALBUMIN 2.3 g/dl (3.4-5.0); BILIRUBIN,DIRECT 0.3 mg/dL (0.0-0.2); BILIRUBIN,TOTAL 0.7 mg/dL (0.2-1); TOT PROT 4.8 g/dl (6.4-8.2)
[2018-08-21] MEDS: CARVEDILOL 12.5 MG TABLET (FP) PO SCH ×2 (09:11→21:45)
[2018-08-21] MEDS: LACTOBACILLUS ACIDOPHILUS 1 TABLET PO SCH ×2 (09:11→21:45)
[2018-08-21] MEDS: HEPARIN NA (PORCINE) 5,000 UNITS/ML 1ML VIAL SQ SCH ×2 (09:11→21:43)
[2018-08-21] MEDS: ASPIRIN 81 MG CHEWABLE TABLETS PO SCH (09:11)
[2018-08-21] MEDS: predniSONE 20 MG TABLET (UD) PO SCH (09:11)
[2018-08-21] MEDS: PANTOPRAZOLE 40 MG TABLET (FP) PO SCH (09:12)
[2018-08-21] MEDS: DIGOXIN 0.125 MG TABLET (FP) PO SCH (09:12)
--- NOTE | 2018-08-21 09:56 | PN ---
Progress Note, Physician Chief Complaint: less sob, edema tele af controlled VR History of Present Illness: 83 year-old woman with a PMHx of cirrhosis, fatty liver, COPD, chronic diastolic CHF, DM, asthma, CAD s/p CABG 2016 at [facility] (sees Dr Oropeza) sent to ED from Dr. Hernandez's office on 08/14/2018 for evaluation of fluid overload. She was recently discharged from [facility] 4-5 days before for COPD exacerbation/CHF, diuresed but does not feel better. No chest pain, orthopnea. Edema is worse as is abdominal distension. Noted with atrial fibrillation on ECG. Not on AC. - Current Medication List Current Medications: Active Medications Albuterol/Ipratropium (Duoneb -) 1 amp NEB RQID [facility] Last Admin: 08/21/18 07:45 Dose: 1 amp Aspirin (Asa -) 81 mg PO DAILY [facility] Last Admin: 08/21/18 09:11 Dose: 81 mg Budesonide (Pulmicort 0.25 Mg Nebulizer -) 1 amp NEB RBID [facility] Last Admin: 08/21/18 07:45 Dose: 1 amp Carvedilol (Coreg -) 12.5 mg PO BID [facility] Last Admin: 08/21/18 09:11 Dose: 12.5 mg Dextrose (D50w (Syringe) -) 25 gm IVPUSH PRN PRN PRN Reason: HYPOGLYCEMIA Digoxin (Lanoxin -) 0.125 mg PO DAILY [facility] Last Admin: 08/21/18 09:12 Dose: 0.125 mg Diphenoxylate HCl/Atropine (Lomotil -) 1 combo PO Q8H PRN PRN Reason: DIARRHEA Last Admin: 08/19/18 22:14 Dose: 1 combo Furosemide (Lasix Injection -) 40 mg IVPUSH BIDLASIX [facility] Last Admin: 08/21/18 06:45 Dose: 40 mg Heparin Sodium (Porcine) (Heparin -) 5,000 unit SQ BID [facility] Last Admin: 08/21/18 09:11 Dose: 5,000 unit Insulin Aspart (Novolog Vial Sliding Scale -) 1 vial SQ [facility]; Protocol Last Admin: 08/21/18 06:47 Dose: Not Given Insulin Detemir (Levemir Vial) 24 units SQ BID@0700,2200 [facility] Last Admin: 08/21/18 06:45 Dose: 24 units Lactobacillus Acidophilus (Bacid -) 1 tab PO BID [facility] Last Admin: 08/21/18 09:11 Dose: 1 tab Levothyroxine Sodium (Synthroid -) 125 mcg PO DAILY@0700 [facility] Last Admin: 08/21/18 06:47 Dose: 125 mcg Lidocaine/Aluminum/Magnesium/Simeth (Magic Mouthwash *Sjr Formula* -) 5 ml MM Q6HPO PRN PRN Reason: mouth pain Last Admin: 08/20/18 22:00 Dose: 5 ml Pantoprazole Sodium (Protonix -) 40 mg PO DAILY [facility] Last Admin: 08/21/18 09:12 Dose: 40 mg Prednisone (Deltasone -) 20 mg PO DAILY [facility] Last Admin: 08/21/18 09:11 Dose: 20 mg Spironolactone (Aldactone -) 25 mg PO TID [facility] Last Admin: 08/21/18 06:45 Dose: 25 mg - Objective Vital Signs: Vital Signs Temperature 97.5 F L 08/21/18 08:54 Pulse Rate 81 08/21/18 09:12 Respiratory Rate 20 08/21/18 08:54 Blood Pressure 142/53 L 08/21/18 08:54 O2 Sat by Pulse Oximetry (%) 99 08/21/18 08:54 Constitutional: Yes: No Distress, Calm Eyes: Yes: EOM Intact HENT: Yes: Normocephalic Neck: Yes: Trachea Midline Cardiovascular: Yes: Pulse Irregular Respiratory: Yes: CTA Bilaterally Gastrointestinal: Yes: Normal Bowel Sounds, Soft Extremities: Yes: WNL Edema: Yes Edema: LLE: Trace, RLE: Trace Peripheral Pulses WNL: Yes Labs: CBC, BMP 08/21/18 06:00 08/21/18 06:00 INR, PTT INR 1.49 (0.83-1.09) H 08/21/18 06:00 Assessment/Plan 83 year-old woman with a PMHx of cirrhosis, fatty liver, COPD, chronic diastolic CHF, DM, asthma, CAD s/p CABG 2016 at [facility] (sees Dr Oropeza) sent to ED from Dr. Hernandez's office on 08/14/2018 for evaluation of fluid overload. She was recently discharged from [facility] 4-5 days before for COPD exacerbation/CHF, diuresed but does not feel better. No chest pain, orthopnea. Edema is worse as is abdominal distension. Noted with atrial fibrillation on ECG. Not on AC. 1. Acute on chronic diastolic CHF-told of EF 50% at [facility], mild pulmonary congestion and moderate leg edema. -Would change to Lasix PO 80 mg daily -Continue spironolactone 25 mg TID. 2. CAD s/p CABG -stable without angina or CHF symptoms. 3. Persistent atrial fibrillation with controlled VR. -Continue Coreg 12.5 bid. -Continue digoxin 0.125 mg daily. -Would defer AC for now until GI/liver assesses the patient for bleeding risk. -DC telemetry. -Call us with questions.
--- NOTE | 2018-08-21 11:28 | PN ---
Progress Note, Physician Chief Complaint: SOB COPD exacerbation History of Present Illness: NAD sitting in chair Seen by Pulmonary and GI MRI abd showed CBD dilatation 8 mm labs reviewed Medrol tapering dose for COPD exacerbation Started on Lomotil for diarrhea Received Methotrexate for her Rheumatoid arthritis- which has been discontinued due to it's adverse of hepatotoxicity - Current Medication List Current Medications: Active Medications Albuterol/Ipratropium (Duoneb -) 1 amp NEB RQID [facility] Last Admin: 08/21/18 07:45 Dose: 1 amp Aspirin (Asa -) 81 mg PO DAILY [facility] Last Admin: 08/21/18 09:11 Dose: 81 mg Budesonide (Pulmicort 0.25 Mg Nebulizer -) 1 amp NEB RBID [facility] Last Admin: 08/21/18 07:45 Dose: 1 amp Carvedilol (Coreg -) 12.5 mg PO BID [facility] Last Admin: 08/21/18 09:11 Dose: 12.5 mg Dextrose (D50w (Syringe) -) 25 gm IVPUSH PRN PRN PRN Reason: HYPOGLYCEMIA Digoxin (Lanoxin -) 0.125 mg PO DAILY [facility] Last Admin: 08/21/18 09:12 Dose: 0.125 mg Diphenoxylate HCl/Atropine (Lomotil -) 1 combo PO Q8H PRN PRN Reason: DIARRHEA Last Admin: 08/19/18 22:14 Dose: 1 combo Furosemide (Lasix Injection -) 40 mg IVPUSH BIDLASIX [facility] Last Admin: 08/21/18 06:45 Dose: 40 mg Heparin Sodium (Porcine) (Heparin -) 5,000 unit SQ BID [facility] Last Admin: 08/21/18 09:11 Dose: 5,000 unit Insulin Aspart (Novolog Vial Sliding Scale -) 1 vial SQ [facility]; Protocol Last Admin: 08/21/18 06:47 Dose: Not Given Insulin Detemir (Levemir Vial) 24 units SQ BID@0700,2200 [facility] Last Admin: 08/21/18 06:45 Dose: 24 units Lactobacillus Acidophilus (Bacid -) 1 tab PO BID [facility] Last Admin: 08/21/18 09:11 Dose: 1 tab Levothyroxine Sodium (Synthroid -) 125 mcg PO DAILY@0700 [facility] Last Admin: 08/21/18 06:47 Dose: 125 mcg Lidocaine/Aluminum/Magnesium/Simeth (Magic Mouthwash *Sjr Formula* -) 5 ml MM Q6HPO PRN PRN Reason: mouth pain Last Admin: 08/20/18 22:00 Dose: 5 ml Pantoprazole Sodium (Protonix -) 40 mg PO DAILY [facility] Last Admin: 08/21/18 09:12 Dose: 40 mg Prednisone (Deltasone -) 20 mg PO DAILY [facility] Last Admin: 08/21/18 09:11 Dose: 20 mg Spironolactone (Aldactone -) 25 mg PO TID [facility] Last Admin: 08/21/18 06:45 Dose: 25 mg - Objective Vital Signs: Vital Signs Temperature 97.3 F L 08/21/18 11:09 Pulse Rate 88 08/21/18 11:09 Respiratory Rate 18 08/21/18 11:09 Blood Pressure 102/66 08/21/18 11:09 O2 Sat by Pulse Oximetry (%) 99 08/21/18 08:54 Constitutional: Yes: Well Nourished, No Distress, Calm Cardiovascular: Yes: Regular Rate and Rhythm Respiratory: Yes: Regular, On Nasal O2, SOB on Exertion Gastrointestinal: Yes: Normal Bowel Sounds, Soft Musculoskeletal: Yes: WNL Extremities: Yes: WNL Edema: Yes Edema: LLE: 1+, RLE: 1+ Peripheral Pulses WNL: Yes Neurological: Yes: Alert, Oriented Psychiatric: Yes: Alert, Oriented Labs: CBC, BMP 08/21/18 06:00 08/21/18 06:00 INR, PTT INR 1.49 (0.83-1.09) H 08/21/18 06:00 Problem List - Problems (1) GI bleed Assessment/Plan: -Guauac positive -no over bleeding -Continue protonix 40 mg PO daily -Seen by GI -recommended Endoscopy when stable -h/h stable- monitor for now -transfuse if Hg<8.0 Code(s): K92.2 - GASTROINTESTINAL HEMORRHAGE, UNSPECIFIED (2) Ascites Assessment/Plan: -2/2 chronic liver cirrhosis -Spironolactone 25 mg po daily added in addition to furosemide 40 mg, which is also increased to BID -daily weights -I&O's Code(s): R18.8 - OTHER ASCITES (3) COPD (chronic obstructive pulmonary disease) Assessment/Plan: -Nasal O2 -Seen by Pulmonary -On prednisone 20 mg daily -Bronchodilators Code(s): J44.9 - CHRONIC OBSTRUCTIVE PULMONARY DISEASE, UNSPECIFIED (4) Diabetes Assessment/Plan: -A1c at 8.7 -Endocrinology on board -BGM AC HS -Diabetic low sodium diet -Novolog sliding scale -Levemir 24 U BID -D50 IVP PRN for symptomatic BGM <70 mg/dl Code(s): E11.9 - TYPE 2 DIABETES MELLITUS WITHOUT COMPLICATIONS (5) Diarrhea Assessment/Plan: -Stools for cdiff (recent hospital admission), O&P, leukocytes and culture- negative so far -Bacid BID -Lomotil Q8h PRN for diarrhea Code(s): R19.7 - DIARRHEA, UNSPECIFIED (6) Cirrhosis of liver Assessment/Plan: -chronic -has fatty liver -Serology negative do far -Seen by GI -MRCP showed CBD dilation 8 mm -Repeat U/S shows small ascitis Code(s): K74.60 - UNSPECIFIED CIRRHOSIS OF LIVER Qualifiers: Ascites presence: with ascites Assessment/Plan see problem list Hold AC due to positive guaiac, it is unclear if patient has history of Afib Tre's Physical therapy- did well with PT
--- NOTE | 2018-08-21 12:57 | PN ---
Progress Note, Physician History of Present Illness: PULMONARY ALERT,LESS CONGESTED,+ COUGH - Current Medication List Current Medications: Active Medications Albuterol/Ipratropium (Duoneb -) 1 amp NEB RQID [facility] Last Admin: 08/21/18 11:10 Dose: 1 amp Aspirin (Asa -) 81 mg PO DAILY [facility] Last Admin: 08/21/18 09:11 Dose: 81 mg Budesonide (Pulmicort 0.25 Mg Nebulizer -) 1 amp NEB RBID [facility] Last Admin: 08/21/18 07:45 Dose: 1 amp Carvedilol (Coreg -) 12.5 mg PO BID [facility] Last Admin: 08/21/18 09:11 Dose: 12.5 mg Dextrose (D50w (Syringe) -) 25 gm IVPUSH PRN PRN PRN Reason: HYPOGLYCEMIA Digoxin (Lanoxin -) 0.125 mg PO DAILY [facility] Last Admin: 08/21/18 09:12 Dose: 0.125 mg Diphenoxylate HCl/Atropine (Lomotil -) 1 combo PO Q8H PRN PRN Reason: DIARRHEA Last Admin: 08/19/18 22:14 Dose: 1 combo Furosemide (Lasix Injection -) 40 mg IVPUSH BIDLASIX [facility] Last Admin: 08/21/18 06:45 Dose: 40 mg Heparin Sodium (Porcine) (Heparin -) 5,000 unit SQ BID [facility] Last Admin: 08/21/18 09:11 Dose: 5,000 unit Insulin Aspart (Novolog Vial Sliding Scale -) 1 vial SQ [facility]; Protocol Last Admin: 08/21/18 11:44 Dose: 4 units Insulin Detemir (Levemir Vial) 24 units SQ BID@0700,2200 [facility] Last Admin: 08/21/18 06:45 Dose: 24 units Lactobacillus Acidophilus (Bacid -) 1 tab PO BID [facility] Last Admin: 08/21/18 09:11 Dose: 1 tab Levothyroxine Sodium (Synthroid -) 125 mcg PO DAILY@0700 [facility] Last Admin: 08/21/18 06:47 Dose: 125 mcg Lidocaine/Aluminum/Magnesium/Simeth (Magic Mouthwash *Sjr Formula* -) 5 ml MM Q6HPO PRN PRN Reason: mouth pain Last Admin: 08/20/18 22:00 Dose: 5 ml Pantoprazole Sodium (Protonix -) 40 mg PO DAILY [facility] Last Admin: 08/21/18 09:12 Dose: 40 mg Prednisone (Deltasone -) 20 mg PO DAILY [facility] Last Admin: 08/21/18 09:11 Dose: 20 mg Spironolactone (Aldactone -) 25 mg PO TID [facility] Last Admin: 08/21/18 06:45 Dose: 25 mg - Objective Vital Signs: Vital Signs Temperature 97.3 F L 08/21/18 11:09 Pulse Rate 88 08/21/18 11:09 Respiratory Rate 18 08/21/18 11:09 Blood Pressure 102/66 08/21/18 11:09 O2 Sat by Pulse Oximetry (%) 99 08/21/18 08:54 Constitutional: Yes: Well Nourished, Calm Eyes: Yes: WNL HENT: Yes: WNL Neck: Yes: WNL Cardiovascular: Yes: Regular Rate and Rhythm, S1, S2 Respiratory: Yes: Rhonchi (FEW SCATTERED BRIELLE RHONCHI) Gastrointestinal: Yes: Normal Bowel Sounds, Soft Extremities: Yes: WNL Edema: Yes Labs: CBC, BMP 08/21/18 06:00 08/21/18 06:00 INR, PTT INR 1.49 (0.83-1.09) H 08/21/18 06:00 Problem List - Problems (1) Hypothyroid Code(s): E03.9 - HYPOTHYROIDISM, UNSPECIFIED (2) Arrhythmia Code(s): I49.9 - CARDIAC ARRHYTHMIA, UNSPECIFIED (3) Ascites Code(s): R18.8 - OTHER ASCITES (4) CHF (congestive heart failure) Code(s): I50.9 - HEART FAILURE, UNSPECIFIED (5) COPD (chronic obstructive pulmonary disease) Code(s): J44.9 - CHRONIC OBSTRUCTIVE PULMONARY DISEASE, UNSPECIFIED (6) Shortness of breath Code(s): R06.02 - SHORTNESS OF BREATH (7) Diabetes Code(s): E11.9 - TYPE 2 DIABETES MELLITUS WITHOUT COMPLICATIONS Assessment/Plan IMP DYSPNEA IMPROVING COPD EXACERBATION IMPROVING DIASTOLIC CHF H/O ASTHMA FLUID OVERLOAD IDDM HYPOTHYROID CIRRHOSIS PLAN IV LASIX O2 INHALED BRONCHODILATORS PREDNISONE DAILY WTS F/U CHEST X-RAYS GLYCEMIC CONTROL DR SEVERINO Problem List - Problems (1) Hypothyroid Code(s): E03.9 - HYPOTHYROIDISM, UNSPECIFIED (2) Arrhythmia Code(s): I49.9 - CARDIAC ARRHYTHMIA, UNSPECIFIED (3) Ascites Code(s): R18.8 - OTHER ASCITES (4) CHF (congestive heart failure) Code(s): I50.9 - HEART FAILURE, UNSPECIFIED (5) COPD (chronic obstructive pulmonary disease) Code(s): J44.9 - CHRONIC OBSTRUCTIVE PULMONARY DISEASE, UNSPECIFIED (6) Shortness of breath Code(s): R06.02 - SHORTNESS OF BREATH (7) Diabetes Code(s): E11.9 - TYPE 2 DIABETES MELLITUS WITHOUT COMPLICATIONS
[2018-08-21 14:47] VITALS: BMI 29.8
--- NOTE | 2018-08-21 15:57 | PN ---
Progress Note (short form) - Note Progress Note: Renal follow up for CKD Pt seen and examined at the bedside awake and alert no acute complaints no cp, abd pain, N/V/D legs remain swollen making urine Vital Signs Temperature 97.3 F L 08/21/18 11:09 Pulse Rate 79 08/21/18 14:51 Respiratory Rate 18 08/21/18 11:09 Blood Pressure 106/59 L 08/21/18 15:41 O2 Sat by Pulse Oximetry (%) 99 08/21/18 08:54 Intake & Output 08/18/18 08/19/18 08/20/18 08/21/18 23:59 23:59 23:59 23:59 Intake Total 630 250 715 150 Output Total 300 Balance 630 250 715 -150 Weight 73.198 kg 73.198 kg 72.983 kg 73.936 kg NAD awake and alert RRR CTA soft NT/ND, mild ascities + LE edema CBC, BMP 08/21/18 06:00 08/21/18 06:00 Current Medications Albuterol/Ipratropium (Duoneb -) 1 amp NEB RQID [facility] Last Admin: 08/21/18 15:38 Dose: 1 amp Aspirin (Asa -) 81 mg PO DAILY [facility] Last Admin: 08/21/18 09:11 Dose: 81 mg Budesonide (Pulmicort 0.25 Mg Nebulizer -) 1 amp NEB RBID [facility] Last Admin: 08/21/18 07:45 Dose: 1 amp Carvedilol (Coreg -) 12.5 mg PO BID [facility] Last Admin: 08/21/18 09:11 Dose: 12.5 mg Dextrose (D50w (Syringe) -) 25 gm IVPUSH PRN PRN PRN Reason: HYPOGLYCEMIA Digoxin (Lanoxin -) 0.125 mg PO DAILY [facility] Last Admin: 08/21/18 09:12 Dose: 0.125 mg Diphenoxylate HCl/Atropine (Lomotil -) 1 combo PO Q8H PRN PRN Reason: DIARRHEA Last Admin: 08/19/18 22:14 Dose: 1 combo Furosemide (Lasix Injection -) 40 mg IVPUSH BIDLASIX [facility] Last Admin: 08/21/18 15:09 Dose: Not Given Heparin Sodium (Porcine) (Heparin -) 5,000 unit SQ BID [facility] Last Admin: 08/21/18 09:11 Dose: 5,000 unit Insulin Aspart (Novolog Vial Sliding Scale -) 1 vial SQ ACHS [facility]; Protocol Last Admin: 08/21/18 11:44 Dose: 4 units Insulin Detemir (Levemir Vial) 24 units SQ BID@0700,2200 [facility] Last Admin: 08/21/18 06:45 Dose: 24 units Lactobacillus Acidophilus (Bacid -) 1 tab PO BID [facility] Last Admin: 08/21/18 09:11 Dose: 1 tab Levothyroxine Sodium (Synthroid -) 125 mcg PO DAILY@0700 [facility] Last Admin: 08/21/18 06:47 Dose: 125 mcg Lidocaine/Aluminum/Magnesium/Simeth (Magic Mouthwash *Sjr Formula* -) 5 ml MM Q6HPO PRN PRN Reason: mouth pain Last Admin: 08/20/18 22:00 Dose: 5 ml Pantoprazole Sodium (Protonix -) 40 mg PO DAILY [facility] Last Admin: 08/21/18 09:12 Dose: 40 mg Prednisone (Deltasone -) 20 mg PO DAILY [facility] Last Admin: 08/21/18 09:11 Dose: 20 mg Spironolactone (Aldactone -) 25 mg PO TID [facility] Last Admin: 08/21/18 15:09 Dose: Not Given 83 year old woman with history of CHF, CAD s/p CABG, Cirrhosis, fatty liver, COPD, [place] who presented with sob with fluid overload with abnormal renal function. #STEFANIE vs. CKD with fluid overload (from HRS vs. CRS vs. intrinsic renal dysfunction) #CHF exacerbation #Cirrhosis with ascities #COPD exacerbation #Anemia #Thrombocytopenia in setting of liver disease Renal function essentially stable thus far this admission Check Urine studies for FeUrea and UPCR to eval for any intrinsic renal dysfunction Agree with increased IV diuretics + aldactone given persistent edema Would withhold any ROSEMARIE/ARB until stable oral diuretic dose is obtained Low salt diet Renal function stable thus far continue Lasix + aldactone for asciteis and LE edema management Low salt diet GI work up for liver dysfunction/cirrhosis on going Taper steroids as per pulmonary Check iron studies trend plts counts Gustavo Claros DO
[2018-08-21] MEDS: MAG HYDROX/ALH/SMC/DPHA/LIDO 240 ML MOUTHWASH MM PRN (21:47)
--- NOTE | 2018-08-21 22:59 | PN ---
GI Progress Note Subjective: GO NOte; I awoke Rylie to tel her that her LFTs have begun to improve. She is mentally alert - Objective Vital Signs: Vital Signs Temperature 97.9 F 08/21/18 15:00 Pulse Rate 78 08/21/18 15:00 Respiratory Rate 18 08/21/18 15:00 Blood Pressure 106/59 L 08/21/18 15:41 O2 Sat by Pulse Oximetry (%) 99 08/21/18 08:54 Laboratory Tests 08/18/18 08/19/18 08/20/18 06:00 06:00 06:00 Total Bilirubin Direct Bilirubin AST 255 H 1304 H 872 H ALT 379 H 1164 H 1640 H Alkaline Phosphatase 08/21/18 08/21/18 06:00 06:00 Total Bilirubin 0.7 Direct Bilirubin 0.3 H AST 286 H ALT 1093 H Alkaline Phosphatase 180 H Constitutional: Calm ...Auscultate: Yes: Normoactive Bowel Sounds ...Palpate: Yes: Soft, Other (nontender) Labs: CBC, BMP 08/21/18 06:00 08/21/18 06:00 INR, PTT INR 1.49 (0.83-1.09) H 08/21/18 06:00 Problem List - Problems (1) Cirrhosis of liver Assessment/Plan: DILI due to antibiotic to suppress UTI ? nitrofuratoin vs methotrexate toxicity resolving . Need to continue to follow carefully Code(s): K74.60 - UNSPECIFIED CIRRHOSIS OF LIVER Qualifiers: Ascites presence: with ascites (2) Pulmonary hypertension Code(s): I27.20 - PULMONARY HYPERTENSION, UNSPECIFIED (3) Tricuspid valve insufficiency Code(s): I07.1 - RHEUMATIC TRICUSPID INSUFFICIENCY (4) Colon polyp Code(s): K63.5 - POLYP OF COLON (5) Angiodysplasia of gastrointestinal tract Code(s): K55.20 - ANGIODYSPLASIA OF COLON WITHOUT HEMORRHAGE (6) Ascites Code(s): R18.8 - OTHER ASCITES (7) CHF (congestive heart failure) Code(s): I50.9 - HEART FAILURE, UNSPECIFIED (8) COPD (chronic obstructive pulmonary disease) Code(s): J44.9 - CHRONIC OBSTRUCTIVE PULMONARY DISEASE, UNSPECIFIED (9) GI bleed Code(s): K92.2 - GASTROINTESTINAL HEMORRHAGE, UNSPECIFIED (10) Heme positive stool Code(s): R19.5 - OTHER FECAL ABNORMALITIES (11) Hypothyroid Code(s): E03.9 - HYPOTHYROIDISM, UNSPECIFIED
--- NOTE | 2018-08-21 23:48 | PN ---
Progress Note, Physician Chief Complaint: lying in bed comfortable sugars remain elevated History of Present Illness: dm,type 2 ashd,ckd,ascites,chf, - Current Medication List Current Medications: Active Medications Albuterol/Ipratropium (Duoneb -) 1 amp NEB RQID [facility] Last Admin: 08/21/18 20:34 Dose: 1 amp Aspirin (Asa -) 81 mg PO DAILY [facility] Last Admin: 08/21/18 09:11 Dose: 81 mg Budesonide (Pulmicort 0.25 Mg Nebulizer -) 1 amp NEB RBID [facility] Last Admin: 08/21/18 20:34 Dose: 1 amp Carvedilol (Coreg -) 12.5 mg PO BID [facility] Last Admin: 08/21/18 21:45 Dose: 12.5 mg Dextrose (D50w (Syringe) -) 25 gm IVPUSH PRN PRN PRN Reason: HYPOGLYCEMIA Digoxin (Lanoxin -) 0.125 mg PO DAILY [facility] Last Admin: 08/21/18 09:12 Dose: 0.125 mg Diphenoxylate HCl/Atropine (Lomotil -) 1 combo PO Q8H PRN PRN Reason: DIARRHEA Last Admin: 08/19/18 22:14 Dose: 1 combo Furosemide (Lasix Injection -) 40 mg IVPUSH BIDLASIX [facility] Last Admin: 08/21/18 16:17 Dose: 40 mg Heparin Sodium (Porcine) (Heparin -) 5,000 unit SQ BID [facility] Last Admin: 08/21/18 21:43 Dose: 5,000 unit Insulin Aspart (Novolog Vial Sliding Scale -) 1 vial SQ ACHS [facility]; Protocol Last Admin: 08/21/18 21:44 Dose: 10 units Insulin Detemir (Levemir Vial) 30 units SQ AM [facility] Lactobacillus Acidophilus (Bacid -) 1 tab PO BID [facility] Last Admin: 08/21/18 21:45 Dose: 1 tab Levothyroxine Sodium (Synthroid -) 125 mcg PO DAILY@0700 [facility] Last Admin: 08/21/18 06:47 Dose: 125 mcg Lidocaine/Aluminum/Magnesium/Simeth (Magic Mouthwash *Sjr Formula* -) 5 ml MM Q6HPO PRN PRN Reason: mouth pain Last Admin: 08/21/18 21:47 Dose: 5 ml Pantoprazole Sodium (Protonix -) 40 mg PO DAILY [facility] Last Admin: 08/21/18 09:12 Dose: 40 mg Prednisone (Deltasone -) 20 mg PO DAILY [facility] Last Admin: 08/21/18 09:11 Dose: 20 mg Spironolactone (Aldactone -) 25 mg PO TID [facility] Last Admin: 08/21/18 21:45 Dose: 25 mg - Objective Vital Signs: Vital Signs Temperature 97.9 F 08/21/18 15:00 Pulse Rate 78 08/21/18 15:00 Respiratory Rate 18 08/21/18 15:00 Blood Pressure 106/59 L 08/21/18 15:41 O2 Sat by Pulse Oximetry (%) 99 08/21/18 08:54 Constitutional: Yes: Anxious Eyes: Yes: EOM Intact HENT: Yes: Normocephalic Neck: Yes: Trachea Midline Cardiovascular: Yes: Regular Rate and Rhythm Respiratory: Yes: CTA Bilaterally, On Nasal O2, Tachypnea Gastrointestinal: Yes: Normal Bowel Sounds, Abdomen, Obese, Hypoactive Bowel Sounds ...Rectal Exam: Yes: Deferred Extremities: Yes: WNL Edema: Yes Labs: CBC, BMP 08/21/18 06:00 08/21/18 06:00 INR, PTT INR 1.49 (0.83-1.09) H 08/21/18 06:00 Assessment/Plan Current Active Problems Angiodysplasia of gastrointestinal tract (Acute) Arrhythmia (Acute) Ascites (Acute) CHF (congestive heart failure) (Acute) COPD (chronic obstructive pulmonary disease) (Acute) Cirrhosis of liver (Acute) Colon polyp (Acute) Diabetes (Acute) Diarrhea (Acute) GI bleed (Acute) Heme positive stool (Acute) Hypothyroid (Acute) Pulmonary hypertension (Acute) Shortness of breath (Acute) Tricuspid valve insufficiency (Acute) Current Medications Generic Name Dose Route Start Last Admin Trade Name Freq PRN Reason Stop Dose Admin Albuterol/Ipratropium 1 amp 08/15/18 08:00 08/21/18 20:34 Duoneb - NEB 1 amp RQID [facility] Administration Aspirin 81 mg 08/15/18 10:00 08/21/18 09:11 Asa - PO 81 mg DAILY [facility] Administration Budesonide 1 amp 08/14/18 22:15 08/21/18 20:34 Pulmicort 0.25 Mg Nebulizer - NEB 1 amp RBID [facility] Administration Carvedilol 12.5 mg 08/17/18 22:00 08/21/18 21:45 Coreg - PO 12.5 mg BID [facility] Administration Dextrose 25 gm 08/16/18 11:06 D50w (Syringe) - IVPUSH PRN PRN HYPOGLYCEMIA Digoxin 0.125 mg 08/19/18 10:00 08/21/18 09:12 Lanoxin - PO 0.125 mg DAILY [facility] Administration Diphenoxylate HCl/Atropine 1 combo 08/19/18 11:49 08/19/18 22:14 Lomotil - PO 1 combo Q8H PRN Administration DIARRHEA Furosemide 40 mg 08/20/18 14:00 08/21/18 16:17 Lasix Injection - IVPUSH 40 mg BIDLASIX [facility] Administration Heparin Sodium (Porcine) 5,000 unit 08/14/18 22:00 08/21/18 21:43 Heparin - SQ 5,000 unit BID [facility] Administration Insulin Aspart 1 vial 08/17/18 16:30 08/21/18 21:44 Novolog Vial Sliding Scale - SQ 10 units ACHS [facility] Administration Protocol Insulin Detemir 30 units 08/22/18 07:00 Levemir Vial SQ AM [facility] Insulin Detemir 24 units 08/22/18 22:00 Levemir Vial SQ HS [facility] Lactobacillus Acidophilus 1 tab 08/16/18 11:30 08/21/18 21:45 Bacid - PO 1 tab BID [facility] Administration Levothyroxine Sodium 125 mcg 08/16/18 07:00 08/21/18 06:47 Synthroid - PO 125 mcg DAILY@0700 [facility] Administration Lidocaine/Aluminum/Magnesium/Simeth 5 ml 08/17/18 14:12 08/21/18 21:47 Magic Mouthwash *Sjr Formula* - MM 5 ml Q6HPO PRN Administration mouth pain Pantoprazole Sodium 40 mg 08/19/18 10:00 08/21/18 09:12 Protonix - PO 40 mg DAILY [facility] Administration Prednisone 20 mg 08/21/18 10:00 08/21/18 09:11 Deltasone - PO 20 mg DAILY [facility] Administration Spironolactone 25 mg 08/18/18 22:00 08/21/18 21:45 Aldactone - PO 25 mg TID [facility] Administration Laboratory Results - last 24 hr 08/16/18 08/19/18 08/20/18 12:46 06:00 16:18 WBC RBC Hgb Hct MCV MCH MCHC RDW Plt Count MPV Absolute Neuts (auto) Neutrophils % Lymphocytes % Monocytes % Eosinophils % Basophils % Nucleated RBC % PT with INR INR Sodium Potassium Chloride Carbon Dioxide Anion Gap BUN Creatinine Creat Clearance w eGFR POC Glucometer 442 Random Glucose Calcium Total Bilirubin Direct Bilirubin AST ALT Alkaline Phosphatase C-Reactive Protein Total Protein Albumin Tumor Marker AFP 2.8 Stool O & P Wet [place] Transglutamin IgG < 2 [place] Transglutamin IgA < 2 O & P Permanent Slide Final report 08/21/18 08/21/18 08/21/18 05:32 06:00 06:00 WBC 9.2 RBC 4.03 Hgb 11.2 Hct 35.2 MCV 87.2 MCH 27.8 MCHC 31.9 L RDW 18.4 H Plt Count 82 L D MPV 9.1 Absolute Neuts (auto) 7.5 Neutrophils % 81.7 Lymphocytes % 9.9 D Monocytes % 6.7 Eosinophils % 1.3 D Basophils % 0.4 D Nucleated RBC % 0 PT with INR INR Sodium 138 Potassium 4.3 Chloride 104 Carbon Dioxide 28 Anion Gap 5 L BUN 43 H Creatinine 1.2 Creat Clearance w eGFR 42.70 POC Glucometer 177 Random Glucose 167 H Calcium 8.4 L Total Bilirubin 0.7 Direct Bilirubin AST 286 H ALT 1093 H Alkaline Phosphatase 180 H C-Reactive Protein Total Protein 4.9 L Albumin 2.3 L Tumor Marker AFP Stool O & P Wet [place] Transglutamin IgG [place] Transglutamin IgA O & P Permanent Slide 08/21/18 08/21/18 08/21/18 06:00 06:00 11:41 WBC RBC Hgb Hct MCV MCH MCHC RDW Plt Count MPV Absolute Neuts (auto) Neutrophils % Lymphocytes % Monocytes % Eosinophils % Basophils % Nucleated RBC % PT with INR 17.70 H INR 1.49 H Sodium Potassium Chloride Carbon Dioxide Anion Gap BUN Creatinine Creat Clearance w eGFR POC Glucometer 235 Random Glucose Calcium Total Bilirubin 0.7 Direct Bilirubin 0.3 H AST 287 H ALT 1100 H Alkaline Phosphatase 177 H C-Reactive Protein 1.9 H Total Protein 4.8 L Albumin 2.3 L Tumor Marker AFP Stool O & P Wet [place] Transglutamin IgG [place] Transglutamin IgA O & P Permanent Slide 08/21/18 08/21/18 16:22 21:42 WBC RBC Hgb Hct MCV MCH MCHC RDW Plt Count MPV Absolute Neuts (auto) Neutrophils % Lymphocytes % Monocytes % Eosinophils % Basophils % Nucleated RBC % PT with INR INR Sodium Potassium Chloride Carbon Dioxide Anion Gap BUN Creatinine Creat Clearance w eGFR POC Glucometer 322 368 Random Glucose Calcium Total Bilirubin Direct Bilirubin AST ALT Alkaline Phosphatase C-Reactive Protein Total Protein Albumin Tumor Marker AFP Stool O & P Wet [place] Transglutamin IgG [place]iss Transglutamin IgA O & P Permanent Slide plan bgm qid achs novolog levemir dose adjusted levemir 30 iu q am levemir 24 iu hs
[2018-08-22] MEDS: INSULIN SLIDING SCALE (NOVOLOG) 1 VIAL SQ SCH ×4 (06:12→23:04)
[2018-08-22] MEDS: SPIRONOLACTONE 25 MG TABLET (FP) PO SCH ×3 (06:13→23:02)
[2018-08-22] MEDS: FUROSEMIDE 40 MG/4 ML INJECTABLE VIAL IVPUSH SCH ×2 (06:22→14:07)
[2018-08-22] MEDS: LEVOTHYROXINE NA 125 MCG TABLET (FP) PO SCH (06:22)
[2018-08-22 07:05] LABS: BASO % 0.2 % (0-2.0); EOS % 1.4 % (0-4.5); HEMATOCRIT 32.5 % (32.4-45.2); HEMOGLOBIN 10.3 GM/dL (10.7-15.3); LYMPH % 18.6 % (8-40); MCH 27.4 pg (25.7-33.7); MCHC 31.9 g/dl (32.0-36.0); MEAN PLT VOLUME 9.3 fl (7.5-11.1); MONO % 4.1 % (3.8-10.2); NEUT % 75.7 % (42.8-82.8); PLATELET COUNT 68 K/MM3 (134-434); RBC 3.77 M/mm3 (3.60-5.2); RDW 19.3 % (11.6-15.6); WHITE BLOOD COUNT 5.5 K/mm3 (4.0-10.0)
[2018-08-22] MEDS: ALBUTEROL SO4 2.5/IPRATROPIUM 0.5 INH SOL 3 ML VIAL.NEB. NEB SCH ×4 (07:30→20:50)
[2018-08-22] MEDS ORDERED: BUDESONIDE 0.5 MG/2 ML INH SUSP VIAL NEB ONE (07:34)
[2018-08-22] MEDS: BUDESONIDE 0.25 MG/2ML INH SUSP VIAL NEB SCH ×2 (07:40→20:50)
[2018-08-22] MEDS: INSULIN (LEVEMIR) 100 UNITS/ML UNITS SQ SCH ×2 (08:25→23:04)
[2018-08-22] MEDS ORDERED: PT OWN MED DRAWER 7, Y5N ONE ×3 (09:11→23:00)
[2018-08-22] MEDS: DIGOXIN 0.125 MG TABLET (FP) PO SCH (09:40)
[2018-08-22] MEDS: ASPIRIN 81 MG CHEWABLE TABLETS PO SCH (09:40)
[2018-08-22] MEDS: PANTOPRAZOLE 40 MG TABLET (FP) PO SCH (09:40)
[2018-08-22] MEDS: CARVEDILOL 12.5 MG TABLET (FP) PO SCH ×2 (09:40→23:03)
[2018-08-22] MEDS: HEPARIN NA (PORCINE) 5,000 UNITS/ML 1ML VIAL SQ SCH ×2 (09:40→23:03)
[2018-08-22] MEDS: predniSONE 20 MG TABLET (UD) PO SCH (09:40)
[2018-08-22] MEDS: LACTOBACILLUS ACIDOPHILUS 1 TABLET PO SCH ×2 (09:40→23:03)
[2018-08-22 10:12] LABS: ALPHA 2 MACROGLOBULINS,QN 319 mg/dL (110-276); ALT(SGPT)P5P 1230 IU/L (0-40); CHOLESTEROL TOTAL 194 mg/dL (100-199); GGT= 328 IU/L (0-60); GLUCOSE SERUM 135 mg/dL (65-99); HEIGHT 62 in (.); WEIGHT- 161 LBS (.)
--- NOTE | 2018-08-22 11:56 | PN ---
Progress Note, Physician History of Present Illness: PULMONARY ALERT,STILL C/O SOB WITH EXERTION,-CP - Current Medication List Current Medications: Active Medications Albuterol/Ipratropium (Duoneb -) 1 amp NEB RQID [facility] Last Admin: 08/22/18 07:30 Dose: 1 amp Aspirin (Asa -) 81 mg PO DAILY [facility] Last Admin: 08/22/18 09:40 Dose: 81 mg Budesonide (Pulmicort 0.25 Mg Nebulizer -) 1 amp NEB RBID [facility] Last Admin: 08/22/18 07:40 Dose: 1 amp Carvedilol (Coreg -) 12.5 mg PO BID [facility] Last Admin: 08/22/18 09:40 Dose: 12.5 mg Dextrose (D50w (Syringe) -) 25 gm IVPUSH PRN PRN PRN Reason: HYPOGLYCEMIA Digoxin (Lanoxin -) 0.125 mg PO DAILY [facility] Last Admin: 08/22/18 09:40 Dose: 0.125 mg Diphenoxylate HCl/Atropine (Lomotil -) 1 combo PO Q8H PRN PRN Reason: DIARRHEA Last Admin: 08/19/18 22:14 Dose: 1 combo Furosemide (Lasix Injection -) 40 mg IVPUSH BIDLASIX [facility] Last Admin: 08/22/18 06:22 Dose: 40 mg Heparin Sodium (Porcine) (Heparin -) 5,000 unit SQ BID [facility] Last Admin: 08/22/18 09:40 Dose: 5,000 unit Insulin Aspart (Novolog Vial Sliding Scale -) [address] [facility]; Protocol Last Admin: 08/22/18 06:12 Dose: Not Given Insulin Detemir (Levemir Vial) 30 units SQ AM [facility] Last Admin: 08/22/18 08:25 Dose: 30 unit Insulin Detemir (Levemir Vial) 24 units SQ HS [facility] Lactobacillus Acidophilus (Bacid -) 1 tab PO BID [facility] Last Admin: 08/22/18 09:40 Dose: 1 tab Levothyroxine Sodium (Synthroid -) 125 mcg PO DAILY@0700 [facility] Last Admin: 08/22/18 06:22 Dose: 125 mcg Lidocaine/Aluminum/Magnesium/Simeth (Magic Mouthwash *Sjr Formula* -) 5 ml MM Q6HPO PRN PRN Reason: mouth pain Last Admin: 08/21/18 21:47 Dose: 5 ml Pantoprazole Sodium (Protonix -) 40 mg PO DAILY [facility] Last Admin: 08/22/18 09:40 Dose: 40 mg Prednisone (Deltasone -) 20 mg PO DAILY [facility] Last Admin: 08/22/18 09:40 Dose: 20 mg Spironolactone (Aldactone -) 25 mg PO TID [facility] Last Admin: 08/22/18 06:13 Dose: Not Given - Objective Vital Signs: Vital Signs Temperature 97.9 F 08/22/18 05:28 Pulse Rate 72 08/22/18 09:40 Respiratory Rate 18 08/22/18 06:00 Blood Pressure 90/34 L 08/22/18 06:00 O2 Sat by Pulse Oximetry (%) 100 08/21/18 21:00 Constitutional: Yes: Well Nourished, Calm Eyes: Yes: WNL HENT: Yes: WNL Neck: Yes: WNL Cardiovascular: Yes: Regular Rate and Rhythm, S1, S2 Respiratory: Yes: Rales (BIBASILAR RALES,FEW SCATTERED RHONCHI) Gastrointestinal: Yes: Normal Bowel Sounds, Soft Extremities: Yes: WNL Edema: Yes Labs: CBC, BMP 08/22/18 06:00 Problem List - Problems (1) Hypothyroid Code(s): E03.9 - HYPOTHYROIDISM, UNSPECIFIED (2) Arrhythmia Code(s): I49.9 - CARDIAC ARRHYTHMIA, UNSPECIFIED (3) Ascites Code(s): R18.8 - OTHER ASCITES (4) CHF (congestive heart failure) Code(s): I50.9 - HEART FAILURE, UNSPECIFIED (5) COPD (chronic obstructive pulmonary disease) Code(s): J44.9 - CHRONIC OBSTRUCTIVE PULMONARY DISEASE, UNSPECIFIED (6) Shortness of breath Code(s): R06.02 - SHORTNESS OF BREATH (7) Diabetes Code(s): E11.9 - TYPE 2 DIABETES MELLITUS WITHOUT COMPLICATIONS Assessment/Plan IMP DYSPNEA SLOWLY IMPROVING COPD EXACERBATION IMPROVING DIASTOLIC CHF H/O ASTHMA FLUID OVERLOAD IDDM HYPOTHYROID CIRRHOSIS PLAN CONTINUE IV LASIX O2 INHALED BRONCHODILATORS PREDNISONE DAILY WTS F/U CHEST X-RAYS GLYCEMIC CONTROL DR SEVERINO Problem List - Problems (1) Hypothyroid Code(s): E03.9 - HYPOTHYROIDISM, UNSPECIFIED (2) Arrhythmia Code(s): I49.9 - CARDIAC ARRHYTHMIA, UNSPECIFIED (3) Ascites Code(s): R18.8 - OTHER ASCITES (4) CHF (congestive heart failure) Code(s): I50.9 - HEART FAILURE, UNSPECIFIED (5) COPD (chronic obstructive pulmonary disease) Code(s): J44.9 - CHRONIC OBSTRUCTIVE PULMONARY DISEASE, UNSPECIFIED (6) Shortness of breath Code(s): R06.02 - SHORTNESS OF BREATH (7) Diabetes Code(s): E11.9 - TYPE 2 DIABETES MELLITUS WITHOUT COMPLICATIONS
[2018-08-22 12:09] LABS: ANION GAP 7 MMOL/L (8-16); BLOOD UREA NITROGEN 47 mg/dL (7-18); CALCIUM 8.1 mg/dL (8.5-10.1); CHLORIDE 104 mmol/L (98-107); CO2 28 mmol/L (21-32); CREATININE 1.1 mg/dL (0.55-1.3); GLUCOSE,RANDOM 107 mg/dL (74-106); POTASSIUM 4.4 mmol/L (3.5-5.1); SODIUM 139 mmol/L (136-145)
[2018-08-22 12:51] LABS: ALBUMIN 2.3 g/dl (3.4-5.0); ALK PHOS 163 U/L (45-117); BILIRUBIN,DIRECT 0.3 mg/dL (0.0-0.2); BILIRUBIN,TOTAL 0.7 mg/dL (0.2-1); SGOT/AST 154 U/L (15-37); SGPT/ALT 764 U/L (13-61); TOT PROT 4.7 g/dl (6.4-8.2)
--- NOTE | 2018-08-22 14:45 | PN ---
Progress Note, Physician Chief Complaint: SOB COPD exacerbation History of Present Illness: NAD sitting in chair Seen by Pulmonary and GI MRI abd showed CBD dilatation 8 mm labs reviewed Medrol tapering dose for COPD exacerbation Started on Lomotil for diarrhea Methotrexate for Rheumatoid arthritis-discontinued due to it's adverse of hepatotoxicity On Furosemide 40 mg IVP BID + Spironolactone 25 mg daily - Current Medication List Current Medications: Active Medications Albuterol/Ipratropium (Duoneb -) 1 amp NEB RQID [facility] Last Admin: 08/22/18 07:30 Dose: 1 amp Aspirin (Asa -) 81 mg PO DAILY [facility] Last Admin: 08/22/18 09:40 Dose: 81 mg Budesonide (Pulmicort 0.25 Mg Nebulizer -) 1 amp NEB RBID [facility] Last Admin: 08/22/18 07:40 Dose: 1 amp Carvedilol (Coreg -) 12.5 mg PO BID [facility] Last Admin: 08/22/18 09:40 Dose: 12.5 mg Dextrose (D50w (Syringe) -) 25 gm IVPUSH PRN PRN PRN Reason: HYPOGLYCEMIA Digoxin (Lanoxin -) 0.125 mg PO DAILY [facility] Last Admin: 08/22/18 09:40 Dose: 0.125 mg Diphenoxylate HCl/Atropine (Lomotil -) 1 combo PO Q8H PRN PRN Reason: DIARRHEA Last Admin: 08/19/18 22:14 Dose: 1 combo Furosemide (Lasix Injection -) 40 mg IVPUSH BIDLASIX [facility] Last Admin: 08/22/18 14:07 Dose: 40 mg Heparin Sodium (Porcine) (Heparin -) 5,000 unit SQ BID [facility] Last Admin: 08/22/18 09:40 Dose: 5,000 unit Insulin Aspart (Novolog Vial Sliding Scale -) 1 vial SQ ACHS [facility]; Protocol Last Admin: 08/22/18 11:52 Dose: 4 units Insulin Detemir (Levemir Vial) 30 units SQ AM [facility] Last Admin: 08/22/18 08:25 Dose: 30 unit Insulin Detemir (Levemir Vial) 24 units SQ HS [facility] Lactobacillus Acidophilus (Bacid -) 1 tab PO BID [facility] Last Admin: 08/22/18 09:40 Dose: 1 tab Levothyroxine Sodium (Synthroid -) 125 mcg PO DAILY@0700 [facility] Last Admin: 08/22/18 06:22 Dose: 125 mcg Lidocaine/Aluminum/Magnesium/Simeth (Magic Mouthwash *Sjr Formula* -) 5 ml MM Q6HPO PRN PRN Reason: mouth pain Last Admin: 08/21/18 21:47 Dose: 5 ml Pantoprazole Sodium (Protonix -) 40 mg PO DAILY [facility] Last Admin: 08/22/18 09:40 Dose: 40 mg Prednisone (Deltasone -) 20 mg PO DAILY [facility] Last Admin: 08/22/18 09:40 Dose: 20 mg Spironolactone (Aldactone -) 25 mg PO TID [facility] Last Admin: 08/22/18 14:09 Dose: 25 mg - Objective Vital Signs: Vital Signs Temperature 97.9 F 08/22/18 14:00 Pulse Rate 75 08/22/18 14:00 Respiratory Rate 18 08/22/18 14:00 Blood Pressure 92/43 L 08/22/18 14:00 O2 Sat by Pulse Oximetry (%) 98 08/22/18 09:00 Constitutional: Yes: Well Nourished, No Distress, Calm Cardiovascular: Yes: Regular Rate and Rhythm Respiratory: Yes: Regular, On Nasal O2, SOB on Exertion, Wheezes (diffuse) Musculoskeletal: Yes: WNL Extremities: Yes: WNL Edema: Yes Edema: LLE: 2+, RLE: 2+ Peripheral Pulses WNL: Yes Neurological: Yes: Alert, Oriented Psychiatric: Yes: Alert, Oriented Labs: CBC, BMP 08/22/18 06:00 08/22/18 06:00 INR, PTT INR 1.49 (0.83-1.09) H 08/21/18 06:00 Problem List - Problems (1) GI bleed Assessment/Plan: -Guauac positive -no over bleeding -Continue protonix 40 mg PO daily -Seen by GI -recommended Endoscopy when stable -h/h stable- monitor for now -transfuse if Hg<8.0 Code(s): K92.2 - GASTROINTESTINAL HEMORRHAGE, UNSPECIFIED (2) Ascites Assessment/Plan: -2/2 chronic liver cirrhosis -Spironolactone 25 mg po daily added in addition to furosemide 40 mg, which is also increased to BID -daily weights -I&O's Code(s): R18.8 - OTHER ASCITES (3) COPD (chronic obstructive pulmonary disease) Assessment/Plan: -Nasal O2 -Seen by Pulmonary -On prednisone 20 mg daily -Bronchodilators Code(s): J44.9 - CHRONIC OBSTRUCTIVE PULMONARY DISEASE, UNSPECIFIED (4) Diabetes Assessment/Plan: -A1c at 8.7 -Endocrinology on board -BGM AC HS -Diabetic low sodium diet -Novolog sliding scale -Levemir 24 U BID -D50 IVP PRN for symptomatic BGM <70 mg/dl Code(s): E11.9 - TYPE 2 DIABETES MELLITUS WITHOUT COMPLICATIONS (5) Diarrhea Assessment/Plan: -Stools for cdiff (recent hospital admission), O&P, leukocytes and culture- negative so far -Bacid BID -Lomotil Q8h PRN for diarrhea Code(s): R19.7 - DIARRHEA, UNSPECIFIED (6) Cirrhosis of liver Assessment/Plan: -chronic -has fatty liver -Serology negative do far -Seen by GI -MRCP showed CBD dilation 8 mm -Repeat U/S shows small ascitis Code(s): K74.60 - UNSPECIFIED CIRRHOSIS OF LIVER Qualifiers: Ascites presence: with ascites (7) Hepatorenal syndrome Assessment/Plan: -liver enzymes improving -B/L lower extremity edema worse today -cont furosemide 40mg IVP bid and aldactone 25mg tab po qd -GI and Nephrology consult Code(s): K76.7 - HEPATORENAL SYNDROME Assessment/Plan see problem list Hold AC due to positive guaiac DVT prophylaxis Physical therapy- did well with PT
[2018-08-22] MEDS ORDERED: INSULIN (NOVOLOG) ASPART 100 UNITS/ML 10ML VIAL ONE (16:33)
--- NOTE | 2018-08-22 16:40 | PN ---
GI Progress Note Subjective: GI Note: LFTs has taken a very nice downswing towards normal. Still awaiting the name of the drug she was taking to suppress UTIs. Breathing is much improved. - Objective Vital Signs: Vital Signs Temperature 97.9 F 08/22/18 14:00 Pulse Rate 75 08/22/18 14:00 Respiratory Rate 18 08/22/18 14:00 Blood Pressure 92/43 L 08/22/18 14:00 O2 Sat by Pulse Oximetry (%) 98 08/22/18 09:00 Laboratory Tests 08/14/18 08/15/18 08/19/18 17:03 06:25 06:00 Total Bilirubin Direct Bilirubin AST 34 1326 H ALT 86 H 1230 H Alkaline Phosphatase Ammonia 08/20/18 08/21/18 08/22/18 06:00 06:00 06:00 Total Bilirubin 0.7 Direct Bilirubin 0.3 H AST 287 H 154 H ALT 1640 H 1100 H 764 H Alkaline Phosphatase 163 H Ammonia 08/22/18 06:00 Total Bilirubin Direct Bilirubin AST ALT Alkaline Phosphatase Ammonia 66.30 H Constitutional: No Distress ...Auscultate: Yes: Normoactive Bowel Sounds ...Palpate: Yes: Soft, Other (nontender) Labs: CBC, BMP 08/22/18 06:00 08/22/18 06:00 INR, PTT INR 1.49 (0.83-1.09) H 08/21/18 06:00 Problem List - Problems (1) Cirrhosis of liver Assessment/Plan: Resolving DILI secondary to UTI suppressant vs MTX. I have again asked Rylie to call my office with the name of the drug or leave the name with her here at the bedside Code(s): K74.60 - UNSPECIFIED CIRRHOSIS OF LIVER Qualifiers: Ascites presence: with ascites (2) Pulmonary hypertension Code(s): I27.20 - PULMONARY HYPERTENSION, UNSPECIFIED (3) Tricuspid valve insufficiency Code(s): I07.1 - RHEUMATIC TRICUSPID INSUFFICIENCY (4) Colon polyp Code(s): K63.5 - POLYP OF COLON (5) Angiodysplasia of gastrointestinal tract Code(s): K55.20 - ANGIODYSPLASIA OF COLON WITHOUT HEMORRHAGE (6) Ascites Code(s): R18.8 - OTHER ASCITES (7) CHF (congestive heart failure) Code(s): I50.9 - HEART FAILURE, UNSPECIFIED (8) COPD (chronic obstructive pulmonary disease) Code(s): J44.9 - CHRONIC OBSTRUCTIVE PULMONARY DISEASE, UNSPECIFIED (9) GI bleed Code(s): K92.2 - GASTROINTESTINAL HEMORRHAGE, UNSPECIFIED (10) Heme positive stool Code(s): R19.5 - OTHER FECAL ABNORMALITIES (11) Hypothyroid Code(s): E03.9 - HYPOTHYROIDISM, UNSPECIFIED
--- NOTE | 2018-08-22 17:53 | PN ---
Progress Note (short form) - Note Progress Note: Renal follow up for CKD Pt seen and examined at the bedside awake and alert complains that leg edema is now improved no sob, cp, abd pain no N/V/D Vital Signs Temperature 97.9 F 08/22/18 14:00 Pulse Rate 75 08/22/18 14:00 Respiratory Rate 18 08/22/18 14:00 Blood Pressure 92/43 L 08/22/18 14:00 O2 Sat by Pulse Oximetry (%) 98 08/22/18 09:00 Intake & Output 08/19/18 08/20/18 08/21/18 08/22/18 23:59 23:59 23:59 23:59 Intake Total 250 715 830 140 Output Total 500 1330 Balance 250 715 330 -1190 Weight 73.198 kg 72.983 kg 73.936 kg 74.389 kg NAD awake and alert RRR CTA soft NT/ND, mild ascities + LE edema CBC, BMP 08/22/18 06:00 08/22/18 06:00 Current Medications Albuterol/Ipratropium (Duoneb -) 1 amp NEB RQID [facility] [place] Last Admin: 08/22/18 15:30 Dose: 1 amp Aspirin (Asa -) 81 mg PO DAILY [facility] [place] Last Admin: 08/22/18 09:40 Dose: 81 mg Budesonide (Pulmicort 0.25 Mg Nebulizer -) 1 amp NEB RBID [facility] [place] Last Admin: 08/22/18 07:40 Dose: 1 amp Carvedilol (Coreg -) 12.5 mg PO BID [facility] [place] Last Admin: 08/22/18 09:40 Dose: 12.5 mg Dextrose (D50w (Syringe) -) 25 gm IVPUSH PRN PRN PRN Reason: HYPOGLYCEMIA Digoxin (Lanoxin -) 0.125 mg PO DAILY [facility] [place] Last Admin: 08/22/18 09:40 Dose: 0.125 mg Diphenoxylate HCl/Atropine (Lomotil -) 1 combo PO Q8H PRN PRN Reason: DIARRHEA Last Admin: 08/19/18 22:14 Dose: 1 combo Furosemide (Lasix Injection -) 40 mg IVPUSH BIDLASIX [facility] [place] Last Admin: 08/22/18 14:07 Dose: 40 mg Heparin Sodium (Porcine) (Heparin -) 5,000 unit SQ BID [facility] Last Admin: 08/22/18 09:40 Dose: 5,000 unit Insulin Aspart (Novolog Vial Sliding Scale -) 1 vial SQ ACHS [facility] [place]; Protocol Last Admin: 08/22/18 16:49 Dose: 4 units Insulin Detemir (Levemir Vial) 30 units SQ AM [facility] [place] Last Admin: 08/22/18 08:25 Dose: 30 unit Insulin Detemir (Levemir Vial) 24 units SQ HS [facility] [place] Lactobacillus Acidophilus (Bacid -) 1 tab PO BID [facility] [place] Last Admin: 08/22/18 09:40 Dose: 1 tab Levothyroxine Sodium (Synthroid -) 125 mcg PO DAILY@0700 [facility] [place] Last Admin: 08/22/18 06:22 Dose: 125 mcg Lidocaine/Aluminum/Magnesium/Simeth (Magic Mouthwash *Sjr Formula* -) 5 ml MM Q6HPO PRN PRN Reason: mouth pain Last Admin: 08/21/18 21:47 Dose: 5 ml Pantoprazole Sodium (Protonix -) 40 mg PO DAILY [facility] [place] Last Admin: 08/22/18 09:40 Dose: 40 mg Prednisone (Deltasone -) 20 mg PO DAILY [facility] [place] Last Admin: 08/22/18 09:40 Dose: 20 mg Spironolactone (Aldactone -) 25 mg PO TID [facility] [place] Last Admin: 08/22/18 14:09 Dose: 25 mg 83 year old woman with history of CHF, CAD s/p CABG, Cirrhosis, fatty liver, COPD, [place] who presented with sob with fluid overload with abnormal renal function. #STEFANIE vs. CKD with fluid overload (from HRS vs. CRS vs. intrinsic renal dysfunction) #CHF exacerbation #Cirrhosis with ascities #COPD exacerbation #Anemia #Thrombocytopenia in setting of liver disease Renal function stable however no improvement in edema or weights can consider changing diuretics to torsemide 40mg BID and continue aldactone 25mg BID maintain low salt diet fluid restriction of ~1L Trend renal function and electrolytes Gustavo Claros DO
[2018-08-23] MEDS: LEVOTHYROXINE NA 125 MCG TABLET (FP) PO SCH (06:56)
[2018-08-23] MEDS: SPIRONOLACTONE 25 MG TABLET (FP) PO SCH ×2 (06:57→16:28)
[2018-08-23] MEDS: FUROSEMIDE 40 MG/4 ML INJECTABLE VIAL IVPUSH SCH ×2 (06:57→16:28)
[2018-08-23] MEDS: INSULIN (LEVEMIR) 100 UNITS/ML UNITS SQ SCH ×2 (06:57→22:58)
[2018-08-23] MEDS: INSULIN SLIDING SCALE (NOVOLOG) 1 VIAL SQ SCH ×4 (06:58→22:58)
[2018-08-23] MEDS: ALBUTEROL SO4 2.5/IPRATROPIUM 0.5 INH SOL 3 ML VIAL.NEB. NEB SCH ×4 (07:15→20:15)
[2018-08-23] MEDS: BUDESONIDE 0.25 MG/2ML INH SUSP VIAL NEB SCH ×2 (07:15→20:15)
[2018-08-23] MEDS ORDERED: PT OWN MED DRAWER 7, Y5N ONE ×3 (07:20→23:58)
[2018-08-23] MEDS ORDERED: INSULIN (LEVEMIR) 100 UNITS/ML UNITS SQ ONE (08:14)
[2018-08-23] MEDS ORDERED: INSULIN (NOVOLOG) ASPART 100 UNITS/ML 10ML VIAL ONE ×2 (08:14→17:34)
[2018-08-23] MEDS: PANTOPRAZOLE 40 MG TABLET (FP) PO SCH (09:53)
[2018-08-23] MEDS: CARVEDILOL 12.5 MG TABLET (FP) PO SCH (09:53)
[2018-08-23] MEDS: ASPIRIN 81 MG CHEWABLE TABLETS PO SCH (09:53)
[2018-08-23] MEDS: DIGOXIN 0.125 MG TABLET (FP) PO SCH (09:53)
[2018-08-23] MEDS: predniSONE 20 MG TABLET (UD) PO SCH (09:53)
[2018-08-23] MEDS: HEPARIN NA (PORCINE) 5,000 UNITS/ML 1ML VIAL SQ SCH ×2 (09:54→22:56)
[2018-08-23] MEDS: LACTOBACILLUS ACIDOPHILUS 1 TABLET PO SCH ×2 (09:54→22:56)
[2018-08-23 11:12] LABS: ALBUMIN 2.5 g/dl (3.4-5.0); BILIRUBIN,DIRECT 0.4 mg/dL (0.0-0.2); BILIRUBIN,TOTAL 0.9 mg/dL (0.2-1); TOT PROT 5.3 g/dl (6.4-8.2)
--- NOTE | 2018-08-23 11:41 | PN ---
Progress Note, Physician Chief Complaint: SOB COPD exacerbation History of Present Illness: NAD sitting in chair Seen by Pulmonary and GI MRI abd showed CBD dilatation 8 mm labs reviewed Medrol tapering dose for COPD exacerbation Started on Lomotil for diarrhea Methotrexate for Rheumatoid arthritis-discontinued due to it's adverse of hepatotoxicity On Furosemide 40 mg IVP BID + Spironolactone 25 mg daily Refused Physical Therapy - Current Medication List Current Medications: Active Medications Albuterol/Ipratropium (Duoneb -) 1 amp NEB RQID [facility] Last Admin: 08/23/18 07:15 Dose: 1 amp Aspirin (Asa -) 81 mg PO DAILY [facility] Last Admin: 08/23/18 09:53 Dose: 81 mg Budesonide (Pulmicort 0.25 Mg Nebulizer -) 1 amp NEB RBID [facility] Last Admin: 08/23/18 07:15 Dose: Not Given Carvedilol (Coreg -) 12.5 mg PO BID [facility] Last Admin: 08/23/18 09:53 Dose: 12.5 mg Dextrose (D50w (Syringe) -) 25 gm IVPUSH PRN PRN PRN Reason: HYPOGLYCEMIA Digoxin (Lanoxin -) 0.125 mg PO DAILY [facility] Last Admin: 08/23/18 09:53 Dose: 0.125 mg Diphenoxylate HCl/Atropine (Lomotil -) 1 combo PO Q8H PRN PRN Reason: DIARRHEA Last Admin: 08/19/18 22:14 Dose: 1 combo Furosemide (Lasix Injection -) 40 mg IVPUSH BIDLASIX [facility] Last Admin: 08/23/18 06:57 Dose: 40 mg Heparin Sodium (Porcine) (Heparin -) 5,000 unit SQ BID [facility] Last Admin: 08/23/18 09:54 Dose: 5,000 unit Insulin Aspart (Novolog Vial Sliding Scale -) 1 vial SQ ACHS [facility]; Protocol Last Admin: 08/23/18 11:31 Dose: Not Given Insulin Detemir (Levemir Vial) 30 units SQ AM [facility] Last Admin: 08/23/18 06:57 Dose: 30 unit Insulin Detemir (Levemir Vial) 24 units SQ HS [facility] Last Admin: 08/22/18 23:04 Dose: 24 units Lactobacillus Acidophilus (Bacid -) 1 tab PO BID [facility] Last Admin: 08/23/18 09:54 Dose: 1 tab Levothyroxine Sodium (Synthroid -) 125 mcg PO DAILY@0700 [facility] Last Admin: 08/23/18 06:56 Dose: 125 mcg Lidocaine/Aluminum/Magnesium/Simeth (Magic Mouthwash *Sjr Formula* -) 5 ml MM Q6HPO PRN PRN Reason: mouth pain Last Admin: 08/21/18 21:47 Dose: 5 ml Pantoprazole Sodium (Protonix -) 40 mg PO DAILY [facility] Last Admin: 08/23/18 09:53 Dose: 40 mg Prednisone (Deltasone -) 20 mg PO DAILY [facility] Last Admin: 08/23/18 09:53 Dose: 20 mg Spironolactone (Aldactone -) 25 mg PO TID [facility] Last Admin: 08/23/18 06:57 Dose: 25 mg - Objective Vital Signs: Vital Signs Temperature 98 F 08/23/18 08:55 Pulse Rate 82 08/23/18 09:53 Respiratory Rate 20 08/23/18 08:55 Blood Pressure 125/58 L 08/23/18 08:55 O2 Sat by Pulse Oximetry (%) 98 08/23/18 08:56 Constitutional: Yes: Well Nourished, No Distress, Calm Cardiovascular: Yes: Regular Rate and Rhythm Respiratory: Yes: Regular Gastrointestinal: Yes: Normal Bowel Sounds, Soft Musculoskeletal: Yes: WNL Extremities: Yes: WNL Edema: Yes Edema: LLE: 2+, RLE: 2+ Peripheral Pulses WNL: Yes Neurological: Yes: Alert, Oriented Psychiatric: Yes: Alert, Oriented Labs: CBC, BMP 08/22/18 06:00 08/22/18 06:00 INR, PTT INR 1.49 (0.83-1.09) H 08/21/18 06:00 Problem List - Problems (1) GI bleed Assessment/Plan: -Guauac positive -no over bleeding -Continue protonix 40 mg PO daily -Seen by GI -recommended Endoscopy when stable -h/h stable- monitor for now -transfuse if Hg<8.0 Code(s): K92.2 - GASTROINTESTINAL HEMORRHAGE, UNSPECIFIED (2) Ascites Assessment/Plan: -2/2 chronic liver cirrhosis -improved -last U/S shows small ascitis -Spironolactone 25 mg po daily added in addition to furosemide 40 mg, which is also increased to BID -daily weights -I&O's Code(s): R18.8 - OTHER ASCITES (3) COPD (chronic obstructive pulmonary disease) Assessment/Plan: -Nasal O2 -Seen by Pulmonary -On prednisone 20 mg daily -Bronchodilators Code(s): J44.9 - CHRONIC OBSTRUCTIVE PULMONARY DISEASE, UNSPECIFIED (4) Diabetes Assessment/Plan: -A1c at 8.7 -Endocrinology on board -BGM AC HS -Diabetic low sodium diet -Novolog sliding scale -Levemir 24 U BID -D50 IVP PRN for symptomatic BGM <70 mg/dl Code(s): E11.9 - TYPE 2 DIABETES MELLITUS WITHOUT COMPLICATIONS (5) Diarrhea Assessment/Plan: -Stools for cdiff (recent hospital admission), O&P, leukocytes and culture- negative so far -Bacid BID -Lomotil Q8h PRN for diarrhea Code(s): R19.7 - DIARRHEA, UNSPECIFIED (6) Cirrhosis of liver Assessment/Plan: -chronic -has fatty liver -Serology negative do far -Seen by GI -MRCP showed CBD dilation 8 mm -Repeat U/S shows small ascitis Code(s): K74.60 - UNSPECIFIED CIRRHOSIS OF LIVER Qualifiers: Ascites presence: with ascites (7) Hepatorenal syndrome Assessment/Plan: -liver enzymes improving -B/L lower extremity edema worse today -cont furosemide 40mg IVP bid and aldactone 25mg tab po qd -GI and Nephrology consult -low sodium diabetic diet with 1 L fluid restriction Code(s): K76.7 - HEPATORENAL SYNDROME Assessment/Plan see problem list Hold AC due to positive guaiac DVT prophylaxis Physical therapy- did well with PT
--- NOTE | 2018-08-23 12:35 | PN ---
Progress Note (short form) - Note Progress Note: PULMONARY States breathing is better. +nonproductive cough, occasional wheezing. No chest pain. Vital Signs Period Temp Pulse Resp BP Sys/Carrion Pulse Ox Last 24 Hr 97.5 F-98.1 F 73-115 18-20 92-137/43-59 98-98 Gen: NAD in chair Heart: RRR Lung: decreased breath sounds at the bases Abd: soft, nontender Ext: +edema CBC, BMP 08/22/18 06:00 08/22/18 06:00 Active Medications Albuterol/Ipratropium (Duoneb -) 1 amp NEB RQID [facility] Last Admin: 08/23/18 11:35 Dose: 1 amp Aspirin (Asa -) 81 mg PO DAILY [facility] Last Admin: 08/23/18 09:53 Dose: 81 mg Budesonide (Pulmicort 0.25 Mg Nebulizer -) 1 amp NEB RBID [facility] Last Admin: 08/23/18 07:15 Dose: Not Given Carvedilol (Coreg -) 12.5 mg PO BID [facility] Last Admin: 08/23/18 09:53 Dose: 12.5 mg Dextrose (D50w (Syringe) -) 25 gm IVPUSH PRN PRN PRN Reason: HYPOGLYCEMIA Digoxin (Lanoxin -) 0.125 mg PO DAILY [facility] Last Admin: 08/23/18 09:53 Dose: 0.125 mg Diphenoxylate HCl/Atropine (Lomotil -) 1 combo PO Q8H PRN PRN Reason: DIARRHEA Last Admin: 08/19/18 22:14 Dose: 1 combo Furosemide (Lasix Injection -) 40 mg IVPUSH BIDLASIX [facility] Last Admin: 08/23/18 06:57 Dose: 40 mg Heparin Sodium (Porcine) (Heparin -) 5,000 unit SQ BID [facility] Last Admin: 08/23/18 09:54 Dose: 5,000 unit Insulin Aspart (Novolog Vial Sliding Scale -) 1 vial SQ [facility]; Protocol Last Admin: 08/23/18 11:31 Dose: Not Given Insulin Detemir (Levemir Vial) 30 units SQ AM [facility] Last Admin: 08/23/18 06:57 Dose: 30 unit Insulin Detemir (Levemir Vial) 24 units SQ HS [facility] Last Admin: 08/22/18 23:04 Dose: 24 units Lactobacillus Acidophilus (Bacid -) 1 tab PO BID [facility] Last Admin: 08/23/18 09:54 Dose: 1 tab Levothyroxine Sodium (Synthroid -) 125 mcg PO DAILY@0700 [facility] Last Admin: 08/23/18 06:56 Dose: 125 mcg Lidocaine/Aluminum/Magnesium/Simeth (Magic Mouthwash *Sjr Formula* -) 5 ml MM Q6HPO PRN PRN Reason: mouth pain Last Admin: 08/21/18 21:47 Dose: 5 ml Pantoprazole Sodium (Protonix -) 40 mg PO DAILY [facility] Last Admin: 08/23/18 09:53 Dose: 40 mg Prednisone (Deltasone -) 20 mg PO DAILY [facility] Last Admin: 08/23/18 09:53 Dose: 20 mg Spironolactone (Aldactone -) 25 mg PO TID [facility] Last Admin: 08/23/18 06:57 Dose: 25 mg A/P Acute on Chronic Diastolic Heart Failure Acute on Chronic Renal Failure Acute COPD Exacerbation CAD s/p CABG Liver Cirrhosis Thrombocytopenia - continue lasix, aldactone - monitor urine output, creatinine - daily weights - can taper off medrol - inhaled bronchodilators - O2 to keep Spo2 >90% - DVT prophylaxis
--- NOTE | 2018-08-23 15:47 | PN ---
Progress Note (short form) - Note Progress Note: Renal follow up for CKD Pt seen and examined at the bedside awake and alert no complains no sob legs remain swollen making urine Vital Signs Temperature 98 F 08/23/18 08:55 Pulse Rate 70 08/23/18 14:34 Respiratory Rate 20 08/23/18 08:55 Blood Pressure 90/55 L 08/23/18 15:29 O2 Sat by Pulse Oximetry (%) 98 08/23/18 08:56 Intake & Output 08/20/18 08/21/18 08/22/18 08/23/18 23:59 23:59 23:59 23:59 Intake Total 715 830 390 200 Output Total 500 1330 1300 Balance 715 330 -940 -1100 Weight 72.983 kg 73.936 kg 74.389 kg 78.471 kg NAD awake and alert RRR CTA soft NT/ND, mild ascities + LE edema CBC, BMP 08/22/18 06:00 08/22/18 06:00 Current Medications Albuterol/Ipratropium (Duoneb -) 1 amp NEB RQID [facility] Last Admin: 08/23/18 11:35 Dose: 1 amp Aspirin (Asa -) 81 mg PO DAILY [facility] Last Admin: 08/23/18 09:53 Dose: 81 mg Budesonide (Pulmicort 0.25 Mg Nebulizer -) 1 amp NEB RBID [facility] Last Admin: 08/23/18 07:15 Dose: Not Given Carvedilol (Coreg -) 12.5 mg PO BID [facility] Last Admin: 08/23/18 09:53 Dose: 12.5 mg Dextrose (D50w (Syringe) -) 25 gm IVPUSH PRN PRN PRN Reason: HYPOGLYCEMIA Digoxin (Lanoxin -) 0.125 mg PO DAILY [facility] Last Admin: 08/23/18 09:53 Dose: 0.125 mg Diphenoxylate HCl/Atropine (Lomotil -) 1 combo PO Q8H PRN PRN Reason: DIARRHEA Last Admin: 08/19/18 22:14 Dose: 1 combo Furosemide (Lasix Injection -) 80 mg IVPB BID@0600,1400 [facility] Heparin Sodium (Porcine) (Heparin -) 5,000 unit SQ BID [facility] Last Admin: 08/23/18 09:54 Dose: 5,000 unit Insulin Aspart (Novolog Vial Sliding Scale -) 1 vial SQ ACHS [facility]; Protocol Last Admin: 08/23/18 11:31 Dose: Not Given Insulin Detemir (Levemir Vial) 30 units SQ AM [facility] Last Admin: 08/23/18 06:57 Dose: 30 unit Insulin Detemir (Levemir Vial) 24 units SQ HS [facility] Last Admin: 08/22/18 23:04 Dose: 24 units Lactobacillus Acidophilus (Bacid -) 1 tab PO BID [facility] Last Admin: 08/23/18 09:54 Dose: 1 tab Levothyroxine Sodium (Synthroid -) 125 mcg PO DAILY@0700 [facility] Last Admin: 08/23/18 06:56 Dose: 125 mcg Lidocaine/Aluminum/Magnesium/Simeth (Magic Mouthwash *Sjr Formula* -) 5 ml MM Q6HPO PRN PRN Reason: mouth pain Last Admin: 08/21/18 21:47 Dose: 5 ml Midodrine (Proamatine -) 5 mg PO TID-MID [facility] Pantoprazole Sodium (Protonix -) 40 mg PO DAILY [facility] Last Admin: 08/23/18 09:53 Dose: 40 mg Prednisone (Deltasone -) 20 mg PO DAILY [facility] Last Admin: 08/23/18 09:53 Dose: 20 mg Spironolactone (Aldactone -) 25 mg PO TID [facility] Last Admin: 08/23/18 06:57 Dose: 25 mg 83 year old woman with history of CHF, CAD s/p CABG, Cirrhosis, fatty liver, COPD, [place] who presented with sob with fluid overload with abnormal renal function. #STEFANIE vs. CKD with fluid overload (from HRS vs. CRS vs. intrinsic renal dysfunction) #CHF exacerbation #Cirrhosis with ascities #COPD exacerbation #Anemia #Thrombocytopenia in setting of liver disease Renal function stable as of yesterday weights and LE edema not improved BP is low, will start midodrine for BP support Increase Lasix to 80mg IVPB BID (to be given as long as MAP > 65) hold aldactone for now, will need to be on it as outpatient hold PM coreg today Gustavo Claros DO
[2018-08-23] MEDS: MIDODRINE HCL 5 MG TABLET PO SCH (17:35)
[2018-08-23] MEDS: FUROSEMIDE 100 MG/10 ML INJECTABLE VIAL IVPB SCH (18:29)
[2018-08-23] MEDS: MAG HYDROX/ALH/SMC/DPHA/LIDO 240 ML MOUTHWASH MM PRN (23:13)
[2018-08-24] MEDS: INSULIN SLIDING SCALE (NOVOLOG) 1 VIAL SQ SCH ×4 (06:22→21:55)
[2018-08-24] MEDS: INSULIN (LEVEMIR) 100 UNITS/ML UNITS SQ SCH ×2 (06:33→21:52)
[2018-08-24] MEDS: FUROSEMIDE 100 MG/10 ML INJECTABLE VIAL IVPB SCH ×2 (06:33→14:31)
[2018-08-24] MEDS: MAG HYDROX/ALH/SMC/DPHA/LIDO 240 ML MOUTHWASH MM PRN ×2 (06:40→22:01)
[2018-08-24] MEDS: LEVOTHYROXINE NA 125 MCG TABLET (FP) PO SCH (06:40)
[2018-08-24 07:14] LABS: BASO % 0.3 % (0-2.0); EOS % 1.9 % (0-4.5); HEMATOCRIT 33.9 % (32.4-45.2); HEMOGLOBIN 10.7 GM/dL (10.7-15.3); MCH 27.4 pg (25.7-33.7); MCHC 31.4 g/dl (32.0-36.0); MEAN CELL VOLUME 87.3 fl (80-96); MEAN PLT VOLUME 9.7 fl (7.5-11.1); MONO % 4.4 % (3.8-10.2); NEUT % 78.4 % (42.8-82.8); PLATELET COUNT 81 K/MM3 (134-434); RBC 3.89 M/mm3 (3.60-5.2); WHITE BLOOD COUNT 6.6 K/mm3 (4.0-10.0)
[2018-08-24] MEDS: ALBUTEROL SO4 2.5/IPRATROPIUM 0.5 INH SOL 3 ML VIAL.NEB. NEB SCH ×4 (07:16→20:15)
[2018-08-24] MEDS: BUDESONIDE 0.25 MG/2ML INH SUSP VIAL NEB SCH ×2 (07:16→20:15)
[2018-08-24 09:23] LABS: ALBUMIN 2.3 g/dl (3.4-5.0); ALK PHOS 185 U/L (45-117); BILIRUBIN,DIRECT 0.3 mg/dL (0.0-0.2); BILIRUBIN,TOTAL 0.8 mg/dL (0.2-1); PHOSPHOROUS 2.6 mg/dL (2.5-4.9); SGOT/AST 62 U/L (15-37); SGPT/ALT 421 U/L (13-61)
[2018-08-24] MEDS ORDERED: PT OWN MED DRAWER 7, Y5N ONE ×2 (09:33→16:54)
[2018-08-24] MEDS: predniSONE 20 MG TABLET (UD) PO SCH (09:39)
[2018-08-24] MEDS: LACTOBACILLUS ACIDOPHILUS 1 TABLET PO SCH ×2 (09:39→21:57)
[2018-08-24] MEDS: DIGOXIN 0.125 MG TABLET (FP) PO SCH (09:39)
[2018-08-24] MEDS: CARVEDILOL 12.5 MG TABLET (FP) PO SCH ×2 (09:40→21:57)
[2018-08-24] MEDS: ASPIRIN 81 MG CHEWABLE TABLETS PO SCH (09:40)
[2018-08-24] MEDS: MIDODRINE HCL 5 MG TABLET PO SCH ×2 (09:40→14:14)
[2018-08-24] MEDS: PANTOPRAZOLE 40 MG TABLET (FP) PO SCH (09:40)
[2018-08-24] MEDS: HEPARIN NA (PORCINE) 5,000 UNITS/ML 1ML VIAL SQ SCH ×2 (09:40→21:56)
--- NOTE | 2018-08-24 11:09 | PN ---
Progress Note, Physician Chief Complaint: SOB COPD exacerbation History of Present Illness: NAD, in chair, feeling worse today with SOB Seen by Pulmonary and GI MRI abd showed CBD dilatation 8 mm labs reviewed Started on Lomotil for diarrhea Methotrexate for Rheumatoid arthritis-discontinued due to it's adverse of hepatotoxicity On Furosemide 80 mg IVP BID + Spironolactone 25 mg being held due to low BP- pt asymptomatic Coreg held yesterday started on midodrine TID Physical Therapy - Current Medication List Current Medications: Active Medications Albuterol/Ipratropium (Duoneb -) 1 amp NEB RQID [facility] Last Admin: 08/24/18 07:16 Dose: 1 amp Aspirin (Asa -) 81 mg PO DAILY [facility] Last Admin: 08/24/18 09:40 Dose: 81 mg Budesonide (Pulmicort 0.25 Mg Nebulizer -) 1 amp NEB RBID [facility] Last Admin: 08/24/18 07:16 Dose: 1 amp Carvedilol (Coreg -) 12.5 mg PO BID [facility] Last Admin: 08/24/18 09:40 Dose: 12.5 mg Dextrose (D50w (Syringe) -) 25 gm IVPUSH PRN PRN PRN Reason: HYPOGLYCEMIA Digoxin (Lanoxin -) 0.125 mg PO DAILY [facility] Last Admin: 08/24/18 09:39 Dose: 0.125 mg Diphenoxylate HCl/Atropine (Lomotil -) 1 combo PO Q8H PRN PRN Reason: DIARRHEA Last Admin: 08/19/18 22:14 Dose: 1 combo Furosemide (Lasix Injection -) 80 mg IVPB BID@0600,1400 [facility] Last Admin: 08/24/18 06:33 Dose: 80 mg Heparin Sodium (Porcine) (Heparin -) 5,000 unit SQ BID [facility] Last Admin: 08/24/18 09:40 Dose: 5,000 unit Insulin Aspart (Novolog Vial Sliding Scale -) 1 vial SQ ACHS [facility]; Protocol Last Admin: 08/24/18 06:22 Dose: Not Given Insulin Detemir (Levemir Vial) 30 units SQ AM [facility] Last Admin: 08/24/18 06:33 Dose: 30 unit Insulin Detemir (Levemir Vial) 24 units SQ HS [facility] Last Admin: 08/23/18 22:58 Dose: 24 units Lactobacillus Acidophilus (Bacid -) 1 tab PO BID [facility] Last Admin: 08/24/18 09:39 Dose: 1 tab Levothyroxine Sodium (Synthroid -) 125 mcg PO DAILY@0700 [facility] Last Admin: 08/24/18 06:40 Dose: 125 mcg Lidocaine/Aluminum/Magnesium/Simeth (Magic Mouthwash *Sjr Formula* -) 5 ml MM Q6HPO PRN PRN Reason: mouth pain Last Admin: 08/24/18 06:40 Dose: 5 ml Midodrine (Proamatine -) 5 mg PO TID-MID [facility] Last Admin: 08/24/18 09:40 Dose: 5 mg Pantoprazole Sodium (Protonix -) 40 mg PO DAILY [facility] Last Admin: 08/24/18 09:40 Dose: 40 mg Prednisone (Deltasone -) 20 mg PO DAILY [facility] Last Admin: 08/24/18 09:39 Dose: 20 mg Spironolactone (Aldactone -) 25 mg PO TID [facility] Last Admin: 08/23/18 16:28 Dose: Not Given - Objective Vital Signs: Vital Signs Temperature 97.7 F 08/24/18 05:44 Pulse Rate 68 08/24/18 09:39 Respiratory Rate 20 08/24/18 09:00 Blood Pressure 127/64 08/24/18 05:44 O2 Sat by Pulse Oximetry (%) 100 08/24/18 09:00 Constitutional: Yes: Well Nourished, No Distress, Calm Cardiovascular: Yes: Regular Rate and Rhythm Respiratory: Yes: On Nasal O2, SOB, SOB on Exertion, Tachypnea Gastrointestinal: Yes: Normal Bowel Sounds, Soft Musculoskeletal: Yes: WNL Extremities: Yes: WNL Edema: Yes Edema: LLE: 1+, RLE: 1+ Peripheral Pulses WNL: Yes Neurological: Yes: Alert, Oriented Psychiatric: Yes: Alert, Oriented Labs: CBC, BMP 08/24/18 06:00 08/22/18 06:00 INR, PTT INR 1.49 (0.83-1.09) H 08/21/18 06:00 Problem List - Problems (1) GI bleed Assessment/Plan: -Guauac positive -no over bleeding -Continue protonix 40 mg PO daily -Seen by GI -recommended Endoscopy when stable -h/h stable- monitor for now -transfuse if Hg<8.0 Code(s): K92.2 - GASTROINTESTINAL HEMORRHAGE, UNSPECIFIED (2) Ascites Assessment/Plan: -2/2 chronic liver cirrhosis -improved -last U/S shows small ascitis -Ob Furosemide IVP 80 mg BID -Spironolactone on hold due to low BP -Started on midodrine -daily weights -I&O's Code(s): R18.8 - OTHER ASCITES (3) COPD (chronic obstructive pulmonary disease) Assessment/Plan: -Nasal O2 -Seen by Pulmonary -Increase to Medrol 40 mg IVP TID -Bronchodilators Code(s): J44.9 - CHRONIC OBSTRUCTIVE PULMONARY DISEASE, UNSPECIFIED (4) Diabetes Assessment/Plan: -A1c at 8.7 -Endocrinology on board -BGM AC HS -Diabetic low sodium diet -Novolog sliding scale -Levemir 24 U BID -D50 IVP PRN for symptomatic BGM <70 mg/dl Code(s): E11.9 - TYPE 2 DIABETES MELLITUS WITHOUT COMPLICATIONS (5) Diarrhea Assessment/Plan: -resolved -Stools for cdiff (recent hospital admission), O&P, leukocytes and culture- negative so far -Bacid BID -Lomotil Q8h PRN for diarrhea Code(s): R19.7 - DIARRHEA, UNSPECIFIED (6) Cirrhosis of liver Assessment/Plan: -chronic -has fatty liver -Serology negative do far -Seen by GI -MRCP showed CBD dilation 8 mm -Repeat U/S shows small ascitis Code(s): K74.60 - UNSPECIFIED CIRRHOSIS OF LIVER Qualifiers: Ascites presence: with ascites (7) Hepatorenal syndrome Assessment/Plan: -liver enzymes improving -B/L lower extremity edema, encouraged to keep them elevated -cont furosemide 80 mg IVP bid and aldactone 25mg tab po qd -GI and Nephrology consult -low sodium diabetic diet with 1 L fluid restriction Code(s): K76.7 - HEPATORENAL SYNDROME Assessment/Plan see problem list Hold AC due to positive guaiac DVT prophylaxis Physical therapy- did well with PT
[2018-08-24] MEDS ORDERED: INSULIN (NOVOLOG) ASPART 100 UNITS/ML 10ML VIAL ONE ×3 (11:52→21:41)
[2018-08-24 12:08] LABS: ANION GAP 9 MMOL/L (8-16); BLOOD UREA NITROGEN 46 mg/dL (7-18); CALCIUM 8.1 mg/dL (8.5-10.1); CHLORIDE 102 mmol/L (98-107); CO2 27 mmol/L (21-32); CREATININE 1.1 mg/dL (0.55-1.3); GLUCOSE,RANDOM 182 mg/dL (74-106); POTASSIUM 4.2 mmol/L (3.5-5.1); SODIUM 138 mmol/L (136-145)
[2018-08-24] MEDS ORDERED: predniSONE 20 MG TABLET (UD) PO SCH (12:15)
--- NOTE | 2018-08-24 12:17 | PN ---
Progress Note, Physician History of Present Illness: pulmonary alert,more dyspneic today,+ wheezes - Current Medication List Current Medications: Active Medications Albuterol/Ipratropium (Duoneb -) 1 amp NEB RQID [facility] Last Admin: 08/24/18 11:17 Dose: 1 amp Aspirin (Asa -) 81 mg PO DAILY [facility] Last Admin: 08/24/18 09:40 Dose: 81 mg Budesonide (Pulmicort 0.25 Mg Nebulizer -) 1 amp NEB RBID [facility] Last Admin: 08/24/18 07:16 Dose: 1 amp Carvedilol (Coreg -) 12.5 mg PO BID [facility] Last Admin: 08/24/18 09:40 Dose: 12.5 mg Dextrose (D50w (Syringe) -) 25 gm IVPUSH PRN PRN PRN Reason: HYPOGLYCEMIA Digoxin (Lanoxin -) 0.125 mg PO DAILY [facility] Last Admin: 08/24/18 09:39 Dose: 0.125 mg Diphenoxylate HCl/Atropine (Lomotil -) 1 combo PO Q8H PRN PRN Reason: DIARRHEA Last Admin: 08/19/18 22:14 Dose: 1 combo Furosemide (Lasix Injection -) 80 mg IVPB BID@0600,1400 [facility] Last Admin: 08/24/18 06:33 Dose: 80 mg Heparin Sodium (Porcine) (Heparin -) 5,000 unit SQ BID [facility] Last Admin: 08/24/18 09:40 Dose: 5,000 unit Insulin Aspart (Novolog Vial Sliding Scale -) 1 vial SQ [facility]; Protocol Last Admin: 08/24/18 12:02 Dose: 6 units Insulin Detemir (Levemir Vial) 30 units SQ AM [facility] Last Admin: 08/24/18 06:33 Dose: 30 unit Insulin Detemir (Levemir Vial) 24 units SQ HS [facility] Last Admin: 08/23/18 22:58 Dose: 24 units Lactobacillus Acidophilus (Bacid -) 1 tab PO BID [facility] Last Admin: 08/24/18 09:39 Dose: 1 tab Levothyroxine Sodium (Synthroid -) 125 mcg PO DAILY@0700 [facility] Last Admin: 08/24/18 06:40 Dose: 125 mcg Lidocaine/Aluminum/Magnesium/Simeth (Magic Mouthwash *Sjr Formula* -) 5 ml MM Q6HPO PRN PRN Reason: mouth pain Last Admin: 08/24/18 06:40 Dose: 5 ml Midodrine (Proamatine -) 5 mg PO TID-MID [facility] Last Admin: 08/24/18 09:40 Dose: 5 mg Pantoprazole Sodium (Protonix -) 40 mg PO DAILY [facility] Last Admin: 08/24/18 09:40 Dose: 40 mg Prednisone (Deltasone -) 40 mg PO BID [facility] Spironolactone (Aldactone -) 25 mg PO TID [facility] Last Admin: 08/23/18 16:28 Dose: Not Given - Objective Vital Signs: Vital Signs Temperature 97.7 F 08/24/18 05:44 Pulse Rate 68 08/24/18 09:39 Respiratory Rate 20 08/24/18 09:00 Blood Pressure 127/64 08/24/18 05:44 O2 Sat by Pulse Oximetry (%) 100 08/24/18 09:00 Constitutional: Yes: Well Nourished, Calm, Other (mildly dyspneic) Eyes: Yes: WNL HENT: Yes: WNL Neck: Yes: WNL Cardiovascular: Yes: Regular Rate and Rhythm, S1, S2 Respiratory: Yes: Wheezes (bilateral wheezes) Gastrointestinal: Yes: Normal Bowel Sounds, Soft Extremities: Yes: WNL Edema: No Labs: CBC, BMP 08/24/18 06:00 08/24/18 06:00 INR, PTT INR 1.49 (0.83-1.09) H 08/21/18 06:00 Problem List - Problems (1) Hypothyroid Code(s): E03.9 - HYPOTHYROIDISM, UNSPECIFIED (2) Arrhythmia Code(s): I49.9 - CARDIAC ARRHYTHMIA, UNSPECIFIED (3) Ascites Code(s): R18.8 - OTHER ASCITES (4) CHF (congestive heart failure) Code(s): I50.9 - HEART FAILURE, UNSPECIFIED (5) COPD (chronic obstructive pulmonary disease) Code(s): J44.9 - CHRONIC OBSTRUCTIVE PULMONARY DISEASE, UNSPECIFIED (6) Shortness of breath Code(s): R06.02 - SHORTNESS OF BREATH (7) Diabetes Code(s): E11.9 - TYPE 2 DIABETES MELLITUS WITHOUT COMPLICATIONS Assessment/Plan IMP DYSPNEA SLOWLY IMPROVING COPD EXACERBATION DIASTOLIC CHF H/O ASTHMA FLUID OVERLOAD IDDM HYPOTHYROID CIRRHOSIS PLAN LASIX O2 INHALED BRONCHODILATORS MEDROL DAILY WTS F/U CHEST X-RAYS GLYCEMIC CONTROL DR SEVERINO Problem List - Problems (1) Hypothyroid Code(s): E03.9 - HYPOTHYROIDISM, UNSPECIFIED (2) Arrhythmia Code(s): I49.9 - CARDIAC ARRHYTHMIA, UNSPECIFIED (3) Ascites Code(s): R18.8 - OTHER ASCITES (4) CHF (congestive heart failure) Code(s): I50.9 - HEART FAILURE, UNSPECIFIED (5) COPD (chronic obstructive pulmonary disease) Code(s): J44.9 - CHRONIC OBSTRUCTIVE PULMONARY DISEASE, UNSPECIFIED (6) Shortness of breath Code(s): R06.02 - SHORTNESS OF BREATH (7) Diabetes Code(s): E11.9 - TYPE 2 DIABETES MELLITUS WITHOUT COMPLICATIONS
[2018-08-24] MEDS: methylPREDNISolone NA SUCC 40 MG/1 ML VIAL IVPUSH SCH ×2 (12:29→17:27)
[2018-08-24] MEDS ORDERED: MIDODRINE HCL 5 MG TABLET PO ONE (14:26)
--- NOTE | 2018-08-24 14:30 | PN ---
Progress Note (short form) - Note Progress Note: Renal follow up for CKD Pt seen and examined at the bedside no acute complaints denies feeling any different no sob, legs remain swollen Vital Signs Temperature 98.4 F 08/24/18 10:00 Pulse Rate 68 08/24/18 10:00 Respiratory Rate 18 08/24/18 10:00 Blood Pressure 132/60 08/24/18 10:00 O2 Sat by Pulse Oximetry (%) 100 08/24/18 09:00 Intake & Output 08/21/18 08/22/18 08/23/18 08/24/18 23:59 23:59 23:59 23:59 Intake Total 830 390 300 Output Total 500 1330 3050 900 Balance 330 -960 -1840 -900 Weight 73.936 kg 74.389 kg 78.471 kg 73.391 kg NAD awake and alert RRR CTA soft NT/ND, mild ascities + LE edema CBC, BMP 08/24/18 06:00 08/24/18 06:00 Current Medications Albuterol/Ipratropium (Duoneb -) 1 amp NEB RQID [facility] Last Admin: 08/24/18 11:17 Dose: 1 amp Aspirin (Asa -) 81 mg PO DAILY [facility] Last Admin: 08/24/18 09:40 Dose: 81 mg Budesonide (Pulmicort 0.25 Mg Nebulizer -) 1 amp NEB RBID [facility] Last Admin: 08/24/18 07:16 Dose: 1 amp Carvedilol (Coreg -) 12.5 mg PO BID [facility] Last Admin: 08/24/18 09:40 Dose: 12.5 mg Dextrose (D50w (Syringe) -) 25 gm IVPUSH PRN PRN PRN Reason: HYPOGLYCEMIA Digoxin (Lanoxin -) 0.125 mg PO DAILY [facility] Last Admin: 08/24/18 09:39 Dose: 0.125 mg Diphenoxylate HCl/Atropine (Lomotil -) 1 combo PO Q8H PRN PRN Reason: DIARRHEA Last Admin: 08/19/18 22:14 Dose: 1 combo Furosemide (Lasix Injection -) 80 mg IVPB BID@0600,1400 [facility] Last Admin: 08/24/18 06:33 Dose: 80 mg Heparin Sodium (Porcine) (Heparin -) 5,000 unit SQ BID [facility] Last Admin: 08/24/18 09:40 Dose: 5,000 unit Insulin Aspart (Novolog Vial Sliding Scale -) 1 vial SQ ACHS [facility]; Protocol Last Admin: 08/24/18 12:02 Dose: 6 units Insulin Detemir (Levemir Vial) 30 units SQ AM [facility] Last Admin: 08/24/18 06:33 Dose: 30 unit Insulin Detemir (Levemir Vial) 24 units SQ HS [facility] Last Admin: 08/23/18 22:58 Dose: 24 units Lactobacillus Acidophilus (Bacid -) 1 tab PO BID [facility] Last Admin: 08/24/18 09:39 Dose: 1 tab Levothyroxine Sodium (Synthroid -) 125 mcg PO DAILY@0700 [facility] Last Admin: 08/24/18 06:40 Dose: 125 mcg Lidocaine/Aluminum/Magnesium/Simeth (Magic Mouthwash *Sjr Formula* -) 5 ml MM Q6HPO PRN PRN Reason: mouth pain Last Admin: 08/24/18 06:40 Dose: 5 ml Methylprednisolone Sodium Succinate (Solu-Medrol -) 40 mg IVPUSH Q8H-IV [facility] Last Admin: 08/24/18 12:29 Dose: 40 mg Midodrine (Proamatine -) 7.5 mg PO TID-MID [facility] Pantoprazole Sodium (Protonix -) 40 mg PO DAILY [facility] Last Admin: 08/24/18 09:40 Dose: 40 mg Spironolactone (Aldactone -) 25 mg PO TID [facility] Last Admin: 08/23/18 16:28 Dose: Not Given 83 year old woman with history of CHF, CAD s/p CABG, Cirrhosis, fatty liver, COPD, [place] who presented with sob with fluid overload with abnormal renal function. #STEFANIE vs. CKD with fluid overload (from HRS vs. CRS vs. intrinsic renal dysfunction) #CHF exacerbation #Cirrhosis with ascities #COPD exacerbation #Anemia #Thrombocytopenia in setting of liver disease Renal function stable pt with 5kg weight loss documented continue IV Lasix BID for now holding aldactone because of low BP continue midodrine TID once clinically improved can consider change to oral torsemide BID Gustavo Claros DO
--- NOTE | 2018-08-24 16:40 | PN ---
GI Progress Note Subjective: GI NOte: LFTs continue to improve. Mentally baseline. NO abdominal pain. Rylie' s daughter called my office to report that the drug was Macrobid. I suspect that this was the hepatotoxic agent rather than methotrexate. All potentially hepatotoxic drugs should however be avoided until her liver fully recovers. - Objective Vital Signs: Vital Signs Temperature 97.6 F 08/24/18 14:00 Pulse Rate 72 08/24/18 14:00 Respiratory Rate 18 08/24/18 14:00 Blood Pressure 110/56 L 08/24/18 14:00 O2 Sat by Pulse Oximetry (%) 100 08/24/18 09:00 Laboratory Tests 08/24/18 06:00 Total Bilirubin 0.8 AST 62 H ALT 421 H Alkaline Phosphatase 185 H Constitutional: Calm ...Auscultate: Yes: Normoactive Bowel Sounds ...Palpate: Yes: Soft, Other (nondtender) Labs: CBC, BMP 08/24/18 06:00 08/24/18 06:00 INR, PTT INR 1.49 (0.83-1.09) H 08/21/18 06:00 Assessment/Plan Follow LFTs Dr Irby will be covering this weekend Problem List - Problems (1) Cirrhosis of liver Assessment/Plan: Resolving DILI secondary to Macrobid more likely than MTX. Code(s): K74.60 - UNSPECIFIED CIRRHOSIS OF LIVER Qualifiers: Ascites presence: with ascites (2) Pulmonary hypertension Code(s): I27.20 - PULMONARY HYPERTENSION, UNSPECIFIED (3) Tricuspid valve insufficiency Code(s): I07.1 - RHEUMATIC TRICUSPID INSUFFICIENCY (4) Colon polyp Code(s): K63.5 - POLYP OF COLON (5) Angiodysplasia of gastrointestinal tract Code(s): K55.20 - ANGIODYSPLASIA OF COLON WITHOUT HEMORRHAGE (6) Ascites Code(s): R18.8 - OTHER ASCITES (7) CHF (congestive heart failure) Code(s): I50.9 - HEART FAILURE, UNSPECIFIED (8) COPD (chronic obstructive pulmonary disease) Code(s): J44.9 - CHRONIC OBSTRUCTIVE PULMONARY DISEASE, UNSPECIFIED (9) GI bleed Code(s): K92.2 - GASTROINTESTINAL HEMORRHAGE, UNSPECIFIED (10) Heme positive stool Code(s): R19.5 - OTHER FECAL ABNORMALITIES (11) Hypothyroid Code(s): E03.9 - HYPOTHYROIDISM, UNSPECIFIED
[2018-08-24] MEDS: MIDODRINE HCL 2.5 MG TABLET PO SCH (17:27)
[2018-08-25] MEDS: methylPREDNISolone NA SUCC 40 MG/1 ML VIAL IVPUSH SCH ×3 (02:13→17:12)
[2018-08-25] MEDS: FUROSEMIDE 100 MG/10 ML INJECTABLE VIAL IVPB SCH ×2 (06:09→14:32)
[2018-08-25] MEDS: INSULIN (LEVEMIR) 100 UNITS/ML UNITS SQ SCH ×2 (06:09→22:29)
[2018-08-25] MEDS: INSULIN SLIDING SCALE (NOVOLOG) 1 VIAL SQ SCH ×4 (06:11→22:30)
[2018-08-25] MEDS: LEVOTHYROXINE NA 125 MCG TABLET (FP) PO SCH (06:14)
[2018-08-25] MEDS: MAG HYDROX/ALH/SMC/DPHA/LIDO 240 ML MOUTHWASH MM PRN (06:14)
[2018-08-25] MEDS ORDERED: INSULIN (NOVOLOG) ASPART 100 UNITS/ML 10ML VIAL ONE (06:36)
[2018-08-25] MEDS ORDERED: PT OWN MED DRAWER 7, Y5N ONE ×6 (06:38→21:31)
[2018-08-25] MEDS: ALBUTEROL SO4 2.5/IPRATROPIUM 0.5 INH SOL 3 ML VIAL.NEB. NEB SCH ×4 (07:55→20:11)
[2018-08-25] MEDS: BUDESONIDE 0.25 MG/2ML INH SUSP VIAL NEB SCH ×2 (08:00→20:11)
--- NOTE | 2018-08-25 08:25 | PN ---
Progress Note, Physician Chief Complaint: Covering for Dr. Salmeron Pt denies any complaints states she is feeling better - Current Medication List Current Medications: Active Medications Albuterol/Ipratropium (Duoneb -) 1 amp NEB RQID [facility] Last Admin: 08/24/18 20:15 Dose: 1 amp Aspirin (Asa -) 81 mg PO DAILY [facility] Last Admin: 08/24/18 09:40 Dose: 81 mg Budesonide (Pulmicort 0.25 Mg Nebulizer -) 1 amp NEB RBID [facility] Last Admin: 08/24/18 20:15 Dose: 1 amp Carvedilol (Coreg -) 12.5 mg PO BID [facility] Last Admin: 08/24/18 21:57 Dose: 12.5 mg Dextrose (D50w (Syringe) -) 25 gm IVPUSH PRN PRN PRN Reason: HYPOGLYCEMIA Digoxin (Lanoxin -) 0.125 mg PO DAILY [facility] Last Admin: 08/24/18 09:39 Dose: 0.125 mg Diphenoxylate HCl/Atropine (Lomotil -) 1 combo PO Q8H PRN PRN Reason: DIARRHEA Last Admin: 08/19/18 22:14 Dose: 1 combo Furosemide (Lasix Injection -) 80 mg IVPB BID@0600,1400 [facility] Last Admin: 08/25/18 06:09 Dose: 80 mg Heparin Sodium (Porcine) (Heparin -) 5,000 unit SQ BID [facility] Last Admin: 08/24/18 21:56 Dose: 5,000 unit Insulin Aspart (Novolog Vial Sliding Scale -) 1 vial SQ [facility]; Protocol Last Admin: 08/25/18 06:11 Dose: 6 units Insulin Detemir (Levemir Vial) 30 units SQ AM [facility] Last Admin: 08/25/18 06:09 Dose: 30 unit Insulin Detemir (Levemir Vial) 24 units SQ HS [facility] Last Admin: 08/24/18 21:52 Dose: 24 units Lactobacillus Acidophilus (Bacid -) 1 tab PO BID [facility] Last Admin: 08/24/18 21:57 Dose: 1 tab Levothyroxine Sodium (Synthroid -) 125 mcg PO DAILY@0700 [facility] Last Admin: 08/25/18 06:14 Dose: 125 mcg Lidocaine/Aluminum/Magnesium/Simeth (Magic Mouthwash *Sjr Formula* -) 5 ml MM Q6HPO PRN PRN Reason: mouth pain Last Admin: 08/25/18 06:14 Dose: 5 ml Methylprednisolone Sodium Succinate (Solu-Medrol -) 40 mg IVPUSH Q8H-IV [facility] Last Admin: 08/25/18 02:13 Dose: 40 mg Midodrine (Proamatine -) 7.5 mg PO TID-MID [facility] Last Admin: 08/24/18 17:27 Dose: 7.5 mg Pantoprazole Sodium (Protonix -) 40 mg PO DAILY [facility] Last Admin: 08/24/18 09:40 Dose: 40 mg Spironolactone (Aldactone -) 25 mg PO TID [facility] Last Admin: 08/23/18 16:28 Dose: Not Given - Objective Vital Signs: Vital Signs Temperature 98.3 F 08/25/18 06:00 Pulse Rate 66 08/25/18 06:00 Respiratory Rate 20 08/25/18 06:00 Blood Pressure 121/63 08/25/18 06:00 O2 Sat by Pulse Oximetry (%) 99 08/24/18 21:00 Constitutional: Yes: Well Nourished, No Distress, Calm Eyes: Yes: WNL HENT: Yes: WNL Neck: Yes: WNL Cardiovascular: Yes: WNL, Regular Rate and Rhythm Respiratory: Yes: WNL, Regular, CTA Bilaterally Gastrointestinal: Yes: WNL, Normal Bowel Sounds, Soft Musculoskeletal: Yes: WNL Extremities: Yes: WNL Edema: No Labs: CBC, BMP 08/24/18 06:00 INR, PTT INR 1.49 (0.83-1.09) H 08/21/18 06:00 Problem List - Problems (1) Transaminitis Assessment/Plan: LFT's downtrending continue to monitor daily while hospitalized avoid hepatotoxic medications diet as tolerated Code(s): R74.0 - NONSPEC ELEV OF LEVELS OF TRANSAMNS & LACTIC ACID DEHYDRGNSE (2) Cirrhosis of liver Code(s): K74.60 - UNSPECIFIED CIRRHOSIS OF LIVER Qualifiers: Ascites presence: with ascites
[2018-08-25 08:42] LABS: ANION GAP 10 MMOL/L (8-16); BLOOD UREA NITROGEN 48 mg/dL (7-18); CALCIUM 8.3 mg/dL (8.5-10.1); CHLORIDE 102 mmol/L (98-107); CO2 27 mmol/L (21-32); CREATININE 1.2 mg/dL (0.55-1.3); GLUCOSE,RANDOM 219 mg/dL (74-106); MAGNESIUM 2.1 mg/dL (1.8-2.4); PHOSPHOROUS 3.7 mg/dL (2.5-4.9); POTASSIUM 4.2 mmol/L (3.5-5.1); SODIUM 138 mmol/L (136-145)
[2018-08-25] MEDS: DIGOXIN 0.125 MG TABLET (FP) PO SCH (09:14)
[2018-08-25] MEDS: PANTOPRAZOLE 40 MG TABLET (FP) PO SCH (09:14)
[2018-08-25] MEDS: LACTOBACILLUS ACIDOPHILUS 1 TABLET PO SCH ×2 (09:14→22:30)
[2018-08-25] MEDS: CARVEDILOL 12.5 MG TABLET (FP) PO SCH ×2 (09:14→22:30)
[2018-08-25] MEDS: ASPIRIN 81 MG CHEWABLE TABLETS PO SCH (09:14)
[2018-08-25] MEDS: MIDODRINE HCL 2.5 MG TABLET PO SCH ×3 (09:14→17:12)
[2018-08-25] MEDS: HEPARIN NA (PORCINE) 5,000 UNITS/ML 1ML VIAL SQ SCH ×2 (09:14→22:30)
[2018-08-25 09:48] LABS: ALBUMIN 2.3 g/dl (3.4-5.0); ALK PHOS 191 U/L (45-117); BILIRUBIN,DIRECT 0.3 mg/dL (0.0-0.2); BILIRUBIN,TOTAL 0.7 mg/dL (0.2-1); SGOT/AST 49 U/L (15-37); SGPT/ALT 345 U/L (13-61); TOT PROT 5.1 g/dl (6.4-8.2)
[2018-08-25] MEDS ORDERED: predniSONE 10 MG TABLET (UD) PO SCH (10:00)
--- NOTE | 2018-08-25 10:55 | PN ---
Progress Note, Physician - Current Medication List Current Medications: Active Medications Albuterol/Ipratropium (Duoneb -) 1 amp NEB RQID [facility] Last Admin: 08/25/18 07:55 Dose: 1 amp Aspirin (Asa -) 81 mg PO DAILY [facility] Last Admin: 08/25/18 09:14 Dose: 81 mg Budesonide (Pulmicort 0.25 Mg Nebulizer -) 1 amp NEB RBID [facility] Last Admin: 08/25/18 08:00 Dose: Not Given Carvedilol (Coreg -) 12.5 mg PO BID [facility] Last Admin: 08/25/18 09:14 Dose: 12.5 mg Dextrose (D50w (Syringe) -) 25 gm IVPUSH PRN PRN PRN Reason: HYPOGLYCEMIA Digoxin (Lanoxin -) 0.125 mg PO DAILY [facility] Last Admin: 08/25/18 09:14 Dose: 0.125 mg Diphenoxylate HCl/Atropine (Lomotil -) 1 combo PO Q8H PRN PRN Reason: DIARRHEA Last Admin: 08/19/18 22:14 Dose: 1 combo Furosemide (Lasix Injection -) 80 mg IVPB BID@0600,1400 [facility] Last Admin: 08/25/18 06:09 Dose: 80 mg Heparin Sodium (Porcine) (Heparin -) 5,000 unit SQ BID [facility] Last Admin: 08/25/18 09:14 Dose: 5,000 unit Insulin Aspart (Novolog Vial Sliding Scale -) 1 vial SQ [facility]; Protocol Last Admin: 08/25/18 06:11 Dose: 6 units Insulin Detemir (Levemir Vial) 30 units SQ AM [facility] Last Admin: 08/25/18 06:09 Dose: 30 unit Insulin Detemir (Levemir Vial) 24 units SQ HS [facility] Last Admin: 08/24/18 21:52 Dose: 24 units Lactobacillus Acidophilus (Bacid -) 1 tab PO BID [facility] Last Admin: 08/25/18 09:14 Dose: 1 tab Levothyroxine Sodium (Synthroid -) 125 mcg PO DAILY@0700 [facility] Last Admin: 08/25/18 06:14 Dose: 125 mcg Lidocaine/Aluminum/Magnesium/Simeth (Magic Mouthwash *Sjr Formula* -) 5 ml MM Q6HPO PRN PRN Reason: mouth pain Last Admin: 08/25/18 06:14 Dose: 5 ml Methylprednisolone Sodium Succinate (Solu-Medrol -) 40 mg IVPUSH Q8H-IV [facility] Last Admin: 08/25/18 09:13 Dose: 40 mg Midodrine (Proamatine -) 7.5 mg PO TID-MID [facility] Last Admin: 08/25/18 09:14 Dose: 7.5 mg Pantoprazole Sodium (Protonix -) 40 mg PO DAILY [facility] Last Admin: 08/25/18 09:14 Dose: 40 mg Spironolactone (Aldactone -) 25 mg PO TID [facility] Last Admin: 08/23/18 16:28 Dose: Not Given - Objective Vital Signs: Vital Signs Temperature 98.3 F 08/25/18 06:00 Pulse Rate 65 08/25/18 09:14 Respiratory Rate 20 08/25/18 06:00 Blood Pressure 121/63 08/25/18 06:00 O2 Sat by Pulse Oximetry (%) 99 08/24/18 21:00 Cardiovascular: Yes: S1, S2 Respiratory: Yes: Regular, CTA Bilaterally Gastrointestinal: Yes: Normal Bowel Sounds, Soft, Ascites Labs: CBC, BMP 08/24/18 06:00 08/25/18 06:00 INR, PTT INR 1.49 (0.83-1.09) H 08/21/18 06:00 Problem List - Problems (1) CHF (congestive heart failure) Code(s): I50.9 - HEART FAILURE, UNSPECIFIED (2) COPD (chronic obstructive pulmonary disease) Code(s): J44.9 - CHRONIC OBSTRUCTIVE PULMONARY DISEASE, UNSPECIFIED (3) Arrhythmia Code(s): I49.9 - CARDIAC ARRHYTHMIA, UNSPECIFIED (4) Ascites Code(s): R18.8 - OTHER ASCITES (5) Heme positive stool Code(s): R19.5 - OTHER FECAL ABNORMALITIES Assessment/Plan - Problems (1) GI bleed Assessment/Plan: -Guauac positive -no over bleeding -Continue protonix 40 mg PO daily -Seen by GI -recommended Endoscopy when stable -h/h stable- monitor for now -transfuse if Hg<8.0 Code(s): K92.2 - GASTROINTESTINAL HEMORRHAGE, UNSPECIFIED (2) Ascites Assessment/Plan: -2/2 chronic liver cirrhosis -improved -last U/S shows small ascitis -Ob Furosemide IVP 80 mg BID -Spironolactone on hold -daily weights -I&O's Code(s): R18.8 - OTHER ASCITES (3) COPD (chronic obstructive pulmonary disease) Assessment/Plan: -Nasal O2 -Seen by Pulmonary -On prednisone 20 mg daily, decrease to 10 mg po daily -Bronchodilators Code(s): J44.9 - CHRONIC OBSTRUCTIVE PULMONARY DISEASE, UNSPECIFIED (4) Diabetes Assessment/Plan: -A1c at 8.7 -Endocrinology on board -BGM AC HS -Diabetic low sodium diet -Novolog sliding scale -Levemir 24 U BID -D50 IVP PRN for symptomatic BGM <70 mg/dl Code(s): E11.9 - TYPE 2 DIABETES MELLITUS WITHOUT COMPLICATIONS (5) Diarrhea Assessment/Plan: -resolved -Stools for cdiff (recent hospital admission), O&P, leukocytes and culture- negative so far -Bacid BID -Lomotil Q8h PRN for diarrhea Code(s): R19.7 - DIARRHEA, UNSPECIFIED (6) Cirrhosis of liver Assessment/Plan: -chronic -has fatty liver -Serology negative do far -Seen by GI -MRCP showed CBD dilation 8 mm -Repeat U/S shows small ascitis Code(s): K74.60 - UNSPECIFIED CIRRHOSIS OF LIVER Qualifiers: Ascites presence: with ascites (7) Hepatorenal syndrome Assessment/Plan: -liver enzymes improving -B/L lower extremity edema, encouraged to keep them elevated -cont furosemide 80 mg IVP bid and aldactone 25mg tab po qd -GI and Nephrology consult -low sodium diabetic diet with 1 L fluid restriction Code(s): K76.7 - HEPATORENAL SYNDROME
--- NOTE | 2018-08-25 11:21 | PN ---
Progress Note (short form) - Note Progress Note: Renal follow up for CKD Pt seen and examined at the bedside awake and alert feels better making a lot of urine no cp, sob, abd pain, n/v/d Vital Signs Temperature 98.3 F 08/25/18 06:00 Pulse Rate 65 08/25/18 09:14 Respiratory Rate 20 08/25/18 06:00 Blood Pressure 121/63 08/25/18 06:00 O2 Sat by Pulse Oximetry (%) 99 08/24/18 21:00 Intake & Output 08/22/18 08/23/18 08/24/18 08/25/18 23:59 23:59 23:59 23:59 Intake Total 390 300 130 180 Output Total 1330 3050 2800 700 Balance -940 -9360 -2980 -520 Weight 74.389 kg 78.471 kg 73.391 kg 72.393 kg NAD awake and alert RRR CTA soft NT/ND, mild ascities + LE edema CBC, BMP 08/24/18 06:00 08/25/18 06:00 Current Medications Albuterol/Ipratropium (Duoneb -) 1 amp NEB RQID [facility] Last Admin: 08/25/18 07:55 Dose: 1 amp Aspirin (Asa -) 81 mg PO DAILY [facility] Last Admin: 08/25/18 09:14 Dose: 81 mg Budesonide (Pulmicort 0.25 Mg Nebulizer -) 1 amp NEB RBID [facility] Last Admin: 08/25/18 08:00 Dose: Not Given Carvedilol (Coreg -) 12.5 mg PO BID [facility] Last Admin: 08/25/18 09:14 Dose: 12.5 mg Dextrose (D50w (Syringe) -) 25 gm IVPUSH PRN PRN PRN Reason: HYPOGLYCEMIA Digoxin (Lanoxin -) 0.125 mg PO DAILY [facility] Last Admin: 08/25/18 09:14 Dose: 0.125 mg Diphenoxylate HCl/Atropine (Lomotil -) 1 combo PO Q8H PRN PRN Reason: DIARRHEA Last Admin: 08/19/18 22:14 Dose: 1 combo Furosemide (Lasix Injection -) 80 mg IVPB BID@0600,1400 [facility] Last Admin: 08/25/18 06:09 Dose: 80 mg Heparin Sodium (Porcine) (Heparin -) 5,000 unit SQ BID [facility] Last Admin: 08/25/18 09:14 Dose: 5,000 unit Insulin Aspart (Novolog Vial Sliding Scale -) 1 vial SQ ACHS [facility]; Protocol Last Admin: 08/25/18 06:11 Dose: 6 units Insulin Detemir (Levemir Vial) 30 units SQ AM [facility] Last Admin: 08/25/18 06:09 Dose: 30 unit Insulin Detemir (Levemir Vial) 24 units SQ HS [facility] Last Admin: 08/24/18 21:52 Dose: 24 units Lactobacillus Acidophilus (Bacid -) 1 tab PO BID [facility] Last Admin: 08/25/18 09:14 Dose: 1 tab Levothyroxine Sodium (Synthroid -) 125 mcg PO DAILY@0700 [facility] Last Admin: 08/25/18 06:14 Dose: 125 mcg Lidocaine/Aluminum/Magnesium/Simeth (Magic Mouthwash *Sjr Formula* -) 5 ml MM Q6HPO PRN PRN Reason: mouth pain Last Admin: 08/25/18 06:14 Dose: 5 ml Methylprednisolone Sodium Succinate (Solu-Medrol -) 40 mg IVPUSH Q8H-IV [facility] Last Admin: 08/25/18 09:13 Dose: 40 mg Midodrine (Proamatine -) 7.5 mg PO TID-MID [facility] Last Admin: 08/25/18 09:14 Dose: 7.5 mg Pantoprazole Sodium (Protonix -) 40 mg PO DAILY [facility] Last Admin: 08/25/18 09:14 Dose: 40 mg Spironolactone (Aldactone -) 25 mg PO TID [facility] Last Admin: 08/23/18 16:28 Dose: Not Given 83 year old woman with history of CHF, CAD s/p CABG, Cirrhosis, fatty liver, COPD, [place] who presented with sob with fluid overload with abnormal renal function. #STEFANIE vs. CKD with fluid overload (from HRS vs. CRS vs. intrinsic renal dysfunction) #CHF exacerbation #Cirrhosis with ascities #COPD exacerbation #Anemia #Thrombocytopenia in setting of liver disease Renal function stable and pt is losing water weight continue IV lasix BID, holding aldactone if pt ready for discharge would d/c on Torsemide 40mg BID, Midodrine 7.5mg TID and hold aldactone until pt is reaccessed as an outpatient Trend renal function and electrolytes while pt is admitted Gustavo Claros DO
--- NOTE | 2018-08-25 14:05 | PN ---
Progress Note (short form) - Note Progress Note: Breathing feels better. Urine output increasing. No CP. Afebrile. Intake & Output 08/22/18 08/23/18 08/24/18 08/25/18 23:59 23:59 23:59 23:59 Intake Total 390 300 130 180 Output Total 1330 3050 2800 700 Balance -940 -2750 -2670 -520 Weight 164 lb 173 lb 161 lb 12.8 oz 159 lb 9.6 oz Last Vital Signs Temp Pulse Resp BP Pulse Ox 97.6 F 65 20 126/53 L 97 08/25/18 11:46 08/25/18 11:46 08/25/18 11:46 08/25/18 11:46 08/25/18 11:46 Active Medications Albuterol/Ipratropium (Duoneb -) 1 amp NEB RQID [facility] Last Admin: 08/25/18 07:55 Dose: 1 amp Aspirin (Asa -) 81 mg PO DAILY [facility] Last Admin: 08/25/18 09:14 Dose: 81 mg Budesonide (Pulmicort 0.25 Mg Nebulizer -) 1 amp NEB RBID [facility] Last Admin: 08/25/18 08:00 Dose: Not Given Carvedilol (Coreg -) 12.5 mg PO BID [facility] Last Admin: 08/25/18 09:14 Dose: 12.5 mg Dextrose (D50w (Syringe) -) 25 gm IVPUSH PRN PRN PRN Reason: HYPOGLYCEMIA Digoxin (Lanoxin -) 0.125 mg PO DAILY [facility] Last Admin: 08/25/18 09:14 Dose: 0.125 mg Diphenoxylate HCl/Atropine (Lomotil -) 1 combo PO Q8H PRN PRN Reason: DIARRHEA Last Admin: 08/19/18 22:14 Dose: 1 combo Furosemide (Lasix Injection -) 80 mg IVPB BID@0600,1400 [facility] Last Admin: 08/25/18 06:09 Dose: 80 mg Heparin Sodium (Porcine) (Heparin -) 5,000 unit SQ BID [facility] Last Admin: 08/25/18 09:14 Dose: 5,000 unit Insulin Aspart (Novolog Vial Sliding Scale -) 1 vial SQ ACHS [facility]; Protocol Last Admin: 08/25/18 12:12 Dose: 6 units Insulin Detemir (Levemir Vial) 30 units SQ AM [facility] Last Admin: 08/25/18 06:09 Dose: 30 unit Insulin Detemir (Levemir Vial) 24 units SQ HS [facility] Last Admin: 08/24/18 21:52 Dose: 24 units Lactobacillus Acidophilus (Bacid -) 1 tab PO BID [facility] Last Admin: 08/25/18 09:14 Dose: 1 tab Levothyroxine Sodium (Synthroid -) 125 mcg PO DAILY@0700 [facility] Last Admin: 08/25/18 06:14 Dose: 125 mcg Lidocaine/Aluminum/Magnesium/Simeth (Magic Mouthwash *Sjr Formula* -) 5 ml MM Q6HPO PRN PRN Reason: mouth pain Last Admin: 08/25/18 06:14 Dose: 5 ml Methylprednisolone Sodium Succinate (Solu-Medrol -) 40 mg IVPUSH Q8H-IV [facility] Last Admin: 08/25/18 09:13 Dose: 40 mg Midodrine (Proamatine -) 7.5 mg PO TID-MID [facility] Last Admin: 08/25/18 09:14 Dose: 7.5 mg Pantoprazole Sodium (Protonix -) 40 mg PO DAILY [facility] Last Admin: 08/25/18 09:14 Dose: 40 mg Spironolactone (Aldactone -) 25 mg PO TID [facility] Last Admin: 08/23/18 16:28 Dose: Not Given Constitutional: Yes: NAD Eyes: Yes: WNL HENT: Yes: WNL Neck: Yes: WNL Cardiovascular: Yes: Regular Rate and Rhythm, S1, S2 Respiratory: Yes: Bilateral rales/rhonchi Gastrointestinal: Yes: Normal Bowel Sounds, Soft Extremities: Yes: WNL Edema: No Labs: Laboratory Results - last 24 hr 08/24/18 08/24/18 08/25/18 16:02 21:49 05:07 Sodium Potassium Chloride Carbon Dioxide Anion Gap BUN Creatinine Creat Clearance w eGFR POC Glucometer 205 297 258 Random Glucose Calcium Phosphorus Magnesium Total Bilirubin Direct Bilirubin AST ALT Alkaline Phosphatase Total Protein Albumin 08/25/18 08/25/18 06:00 11:25 Sodium 138 Potassium 4.2 Chloride 102 Carbon Dioxide 27 Anion Gap 10 BUN 48 H Creatinine 1.2 Creat Clearance w eGFR 42.70 POC Glucometer 282 Random Glucose 219 H Calcium 8.3 L Phosphorus 3.7 Magnesium 2.1 Total Bilirubin 0.7 Direct Bilirubin 0.3 H AST 49 H ALT 345 H Alkaline Phosphatase 191 H Total Protein 5.1 L Albumin 2.3 L Problem List - Problems (1) Hypothyroid Code(s): E03.9 - HYPOTHYROIDISM, UNSPECIFIED (2) Arrhythmia Code(s): I49.9 - CARDIAC ARRHYTHMIA, UNSPECIFIED (3) Ascites Code(s): R18.8 - OTHER ASCITES (4) CHF (congestive heart failure) Code(s): I50.9 - HEART FAILURE, UNSPECIFIED (5) COPD (chronic obstructive pulmonary disease) Code(s): J44.9 - CHRONIC OBSTRUCTIVE PULMONARY DISEASE, UNSPECIFIED (6) Shortness of breath Code(s): R06.02 - SHORTNESS OF BREATH (7) Diabetes Code(s): E11.9 - TYPE 2 DIABETES MELLITUS WITHOUT COMPLICATIONS Assessment/Plan IMP DYSPNEA SLOWLY IMPROVING COPD EXACERBATION DIASTOLIC CHF H/O ASTHMA FLUID OVERLOAD IDDM HYPOTHYROID CIRRHOSIS PLAN LASIX O2 INHALED BRONCHODILATORS TAPER MEDROL DAILY WTS GLYCEMIC CONTROL DR DEL TORO
[2018-08-25] MEDS ORDERED: MAGNESIUM CL 64 MG TABLET.SA PO ONE (16:15)
[2018-08-26] MEDS: methylPREDNISolone NA SUCC 40 MG/1 ML VIAL IVPUSH SCH ×3 (02:13→23:42)
[2018-08-26] MEDS: INSULIN SLIDING SCALE (NOVOLOG) 1 VIAL SQ SCH ×4 (06:51→23:33)
[2018-08-26] MEDS: INSULIN (LEVEMIR) 100 UNITS/ML UNITS SQ SCH ×2 (06:52→23:41)
[2018-08-26] MEDS: LEVOTHYROXINE NA 125 MCG TABLET (FP) PO SCH (06:52)
[2018-08-26 07:21] LABS: BASO % 0.2 % (0-2.0); HEMATOCRIT 33.7 % (32.4-45.2); HEMOGLOBIN 10.9 GM/dL (10.7-15.3); LYMPH % 5.1 % (8-40); MCHC 32.3 g/dl (32.0-36.0); MEAN CELL VOLUME 86.8 fl (80-96); MEAN PLT VOLUME 9.3 fl (7.5-11.1); MONO % 3.2 % (3.8-10.2); NEUT % 91.5 % (42.8-82.8); PLATELET COUNT 75 K/MM3 (134-434); RBC 3.88 M/mm3 (3.60-5.2); RDW 18.9 % (11.6-15.6); WHITE BLOOD COUNT 7.1 K/mm3 (4.0-10.0)
[2018-08-26] MEDS: FUROSEMIDE 40 MG/4 ML INJECTABLE VIAL IVPB SCH ×2 (07:40→14:26)
[2018-08-26] MEDS ORDERED: PT OWN MED DRAWER 7, Y5N ONE ×5 (08:06→13:41)
[2018-08-26 08:28] LABS: ALBUMIN 2.3 g/dl (3.4-5.0); ALK PHOS 188 U/L (45-117); ANION GAP 9 MMOL/L (8-16); BILIRUBIN,TOTAL 0.6 mg/dL (0.2-1); BLOOD UREA NITROGEN 48 mg/dL (7-18); CALCIUM 8.1 mg/dL (8.5-10.1); CHLORIDE 104 mmol/L (98-107); CO2 28 mmol/L (21-32); CREATININE 1.2 mg/dL (0.55-1.3); GLUCOSE,RANDOM 167 mg/dL (74-106); POTASSIUM 3.7 mmol/L (3.5-5.1); SGOT/AST 45 U/L (15-37); SGPT/ALT 273 U/L (13-61); SODIUM 141 mmol/L (136-145); TOT PROT 5.1 g/dl (6.4-8.2)
[2018-08-26] MEDS: BUDESONIDE 0.25 MG/2ML INH SUSP VIAL NEB SCH ×2 (08:30→22:01)
[2018-08-26] MEDS: ALBUTEROL SO4 2.5/IPRATROPIUM 0.5 INH SOL 3 ML VIAL.NEB. NEB SCH ×4 (08:40→22:01)
[2018-08-26 09:28] LABS: PLATELET ESTIMATE DECREASED
[2018-08-26 09:53] LABS: BILIRUBIN,DIRECT 0.3 mg/dL (0.0-0.2)
[2018-08-26] MEDS: DIGOXIN 0.125 MG TABLET (FP) PO SCH (10:14)
[2018-08-26] MEDS: ASPIRIN 81 MG CHEWABLE TABLETS PO SCH (10:14)
[2018-08-26] MEDS: LACTOBACILLUS ACIDOPHILUS 1 TABLET PO SCH ×2 (10:14→23:33)
[2018-08-26] MEDS: CARVEDILOL 12.5 MG TABLET (FP) PO SCH ×2 (10:14→23:33)
[2018-08-26] MEDS: MIDODRINE HCL 2.5 MG TABLET PO SCH ×3 (10:15→17:56)
[2018-08-26] MEDS: HEPARIN NA (PORCINE) 5,000 UNITS/ML 1ML VIAL SQ SCH ×2 (10:16→23:41)
--- NOTE | 2018-08-26 10:26 | PN ---
Progress Note, Physician - Current Medication List Current Medications: Active Medications Albuterol/Ipratropium (Duoneb -) 1 amp NEB RQID [facility] Last Admin: 08/26/18 08:40 Dose: 1 amp Aspirin (Asa -) 81 mg PO DAILY [facility] Last Admin: 08/25/18 09:14 Dose: 81 mg Budesonide (Pulmicort 0.25 Mg Nebulizer -) 1 amp NEB RBID [facility] Last Admin: 08/26/18 08:30 Dose: 1 amp Carvedilol (Coreg -) 12.5 mg PO BID [facility] Last Admin: 08/25/18 22:30 Dose: 12.5 mg Dextrose (D50w (Syringe) -) 25 gm IVPUSH PRN PRN PRN Reason: HYPOGLYCEMIA Digoxin (Lanoxin -) 0.125 mg PO DAILY [facility] Last Admin: 08/25/18 09:14 Dose: 0.125 mg Diphenoxylate HCl/Atropine (Lomotil -) 1 combo PO Q8H PRN PRN Reason: DIARRHEA Last Admin: 08/19/18 22:14 Dose: 1 combo Furosemide (Lasix Injection -) 80 mg IVPB BID@0600,1400 [facility] Last Admin: 08/26/18 07:40 Dose: 80 mg Heparin Sodium (Porcine) (Heparin -) 5,000 unit SQ BID [facility] Last Admin: 08/25/18 22:30 Dose: 5,000 unit Insulin Aspart (Novolog Vial Sliding Scale -) 1 vial SQ [facility]; Protocol Last Admin: 08/26/18 06:51 Dose: Not Given Insulin Detemir (Levemir Vial) 30 units SQ AM [facility] Last Admin: 08/26/18 06:52 Dose: 30 unit Insulin Detemir (Levemir Vial) 24 units SQ HS [facility] Last Admin: 08/25/18 22:29 Dose: 24 units Lactobacillus Acidophilus (Bacid -) 1 tab PO BID [facility] Last Admin: 08/25/18 22:30 Dose: 1 tab Levothyroxine Sodium (Synthroid -) 125 mcg PO DAILY@0700 [facility] Last Admin: 08/26/18 06:52 Dose: 125 mcg Lidocaine/Aluminum/Magnesium/Simeth (Magic Mouthwash *Sjr Formula* -) 5 ml MM Q6HPO PRN PRN Reason: mouth pain Last Admin: 08/25/18 06:14 Dose: 5 ml Methylprednisolone Sodium Succinate (Solu-Medrol -) 40 mg IVPUSH Q8H-IV [facility] Last Admin: 08/26/18 02:13 Dose: 40 mg Midodrine (Proamatine -) 7.5 mg PO TID-MID [facility] Last Admin: 08/25/18 17:12 Dose: 7.5 mg Pantoprazole Sodium (Protonix -) 40 mg PO DAILY [facility] Last Admin: 08/25/18 09:14 Dose: 40 mg Spironolactone (Aldactone -) 25 mg PO TID [facility] Last Admin: 08/23/18 16:28 Dose: Not Given - Objective Vital Signs: Vital Signs Temperature 98.3 F 08/26/18 06:00 Pulse Rate 60 08/26/18 10:08 Respiratory Rate 24 H 08/26/18 10:08 Blood Pressure 119/51 L 08/26/18 10:08 O2 Sat by Pulse Oximetry (%) 97 08/25/18 21:00 Cardiovascular: Yes: S1, S2 Respiratory: Yes: Diminished, On Nasal O2, Rhonchi Gastrointestinal: Yes: Normal Bowel Sounds, Soft Labs: CBC, BMP 08/26/18 06:51 08/26/18 06:51 INR, PTT INR 1.49 (0.83-1.09) H 08/21/18 06:00 Problem List - Problems (1) CHF (congestive heart failure) Code(s): I50.9 - HEART FAILURE, UNSPECIFIED (2) COPD (chronic obstructive pulmonary disease) Code(s): J44.9 - CHRONIC OBSTRUCTIVE PULMONARY DISEASE, UNSPECIFIED (3) Arrhythmia Code(s): I49.9 - CARDIAC ARRHYTHMIA, UNSPECIFIED (4) Ascites Code(s): R18.8 - OTHER ASCITES (5) Heme positive stool Code(s): R19.5 - OTHER FECAL ABNORMALITIES Assessment/Plan - Problems (1) GI bleed Assessment/Plan: -Guauac positive -no over bleeding -Continue protonix 40 mg PO daily -Seen by GI -recommended Endoscopy when stable -h/h stable- monitor for now -transfuse if Hg<8.0 Code(s): K92.2 - GASTROINTESTINAL HEMORRHAGE, UNSPECIFIED (2) Ascites Assessment/Plan: -2/2 chronic liver cirrhosis -improved -last U/S shows small ascitis -Ob Furosemide IVP 80 mg BID -Spironolactone on hold -daily weights -I&O's Code(s): R18.8 - OTHER ASCITES (3) COPD (chronic obstructive pulmonary disease) Assessment/Plan: -Nasal O2 -Seen by Pulmonary -On Solumedrol -Bronchodilators Code(s): J44.9 - CHRONIC OBSTRUCTIVE PULMONARY DISEASE, UNSPECIFIED (4) Diabetes Assessment/Plan: -A1c at 8.7 -Endocrinology on board -BGM AC HS -Diabetic low sodium diet -Novolog sliding scale -Levemir 24 U BID -D50 IVP PRN for symptomatic BGM <70 mg/dl Code(s): E11.9 - TYPE 2 DIABETES MELLITUS WITHOUT COMPLICATIONS (5) Diarrhea Assessment/Plan: -resolved -Stools for cdiff (recent hospital admission), O&P, leukocytes and culture- negative so far -Bacid BID -Lomotil Q8h PRN for diarrhea Code(s): R19.7 - DIARRHEA, UNSPECIFIED (6) Cirrhosis of liver Assessment/Plan: -chronic -has fatty liver -Serology negative do far -Seen by GI -MRCP showed CBD dilation 8 mm -Repeat U/S shows small ascitis Code(s): K74.60 - UNSPECIFIED CIRRHOSIS OF LIVER Qualifiers: Ascites presence: with ascites (7) Hepatorenal syndrome Assessment/Plan: -liver enzymes improving -B/L lower extremity edema, encouraged to keep them elevated -cont furosemide 80 mg IVP bid and aldactone 25mg tab po qd -GI and Nephrology consult -low sodium diabetic diet with 1 L fluid restriction Code(s): K76.7 - HEPATORENAL SYNDROME
[2018-08-26] MEDS: PANTOPRAZOLE 40 MG TABLET (FP) PO SCH (10:41)
[2018-08-26] MEDS: MAG HYDROX/ALH/SMC/DPHA/LIDO 240 ML MOUTHWASH MM PRN (11:26)
--- NOTE | 2018-08-26 11:59 | PN ---
Progress Note (short form) - Note Progress Note: Breathing feels better. No CP. Afebrile. Intake & Output 08/23/18 08/24/18 08/25/18 08/26/18 23:59 23:59 23:59 23:59 Intake Total 829 338 3000 450 Output Total 3050 2800 1300 350 Balance -2750 -2670 380 100 Weight 173 lb 161 lb 12.8 oz 159 lb 9.6 oz 159 lb 6.4 oz Last Vital Signs Temp Pulse Resp BP Pulse Ox 97.4 F L 60 24 H 119/51 L 97 08/26/18 11:18 08/26/18 10:14 08/26/18 10:08 08/26/18 10:08 08/25/18 21:00 Active Medications Albuterol/Ipratropium (Duoneb -) 1 amp NEB RQID [facility] Last Admin: 08/26/18 08:40 Dose: 1 amp Aspirin (Asa -) 81 mg PO DAILY [facility] Last Admin: 08/26/18 10:14 Dose: 81 mg Budesonide (Pulmicort 0.25 Mg Nebulizer -) 1 amp NEB RBID [facility] Last Admin: 08/26/18 08:30 Dose: 1 amp Carvedilol (Coreg -) 12.5 mg PO BID [facility] Last Admin: 08/26/18 10:14 Dose: 12.5 mg Dextrose (D50w (Syringe) -) 25 gm IVPUSH PRN PRN PRN Reason: HYPOGLYCEMIA Digoxin (Lanoxin -) 0.125 mg PO DAILY [facility] Last Admin: 08/26/18 10:14 Dose: 0.125 mg Diphenoxylate HCl/Atropine (Lomotil -) 1 combo PO Q8H PRN PRN Reason: DIARRHEA Last Admin: 08/19/18 22:14 Dose: 1 combo Furosemide (Lasix Injection -) 80 mg IVPB BID@0600,1400 [facility] Last Admin: 08/26/18 07:40 Dose: 80 mg Heparin Sodium (Porcine) (Heparin -) 5,000 unit SQ BID [facility] Last Admin: 08/26/18 10:16 Dose: 5,000 unit Insulin Aspart (Novolog Vial Sliding Scale -) 1 vial SQ ACHS [facility]; Protocol Last Admin: 08/26/18 11:54 Dose: 4 units Insulin Detemir (Levemir Vial) 30 units SQ AM [facility] Last Admin: 08/26/18 06:52 Dose: 30 unit Insulin Detemir (Levemir Vial) 24 units SQ HS [facility] Last Admin: 08/25/18 22:29 Dose: 24 units Lactobacillus Acidophilus (Bacid -) 1 tab PO BID [facility] Last Admin: 08/26/18 10:14 Dose: 1 tab Levothyroxine Sodium (Synthroid -) 125 mcg PO DAILY@0700 [facility] Last Admin: 08/26/18 06:52 Dose: 125 mcg Lidocaine/Aluminum/Magnesium/Simeth (Magic Mouthwash *Sjr Formula* -) 5 ml MM Q6HPO PRN PRN Reason: mouth pain Last Admin: 08/26/18 11:26 Dose: 5 ml Methylprednisolone Sodium Succinate (Solu-Medrol -) 40 mg IVPUSH BID [facility] Midodrine (Proamatine -) 7.5 mg PO TID-MID [facility] Last Admin: 08/26/18 10:15 Dose: 7.5 mg Pantoprazole Sodium (Protonix -) 40 mg PO DAILY [facility] Last Admin: 08/26/18 10:41 Dose: 40 mg Spironolactone (Aldactone -) 25 mg PO TID [facility] Last Admin: 08/23/18 16:28 Dose: Not Given Constitutional: Yes: NAD Eyes: Yes: WNL HENT: Yes: WNL Neck: Yes: WNL Cardiovascular: Yes: Regular Rate and Rhythm, S1, S2 Respiratory: Yes: Bilateral rales/rhonchi Gastrointestinal: Yes: Normal Bowel Sounds, Soft Extremities: Yes: WNL Edema: No Labs: Laboratory Results - last 24 hr 08/25/18 08/25/18 08/26/18 16:19 21:05 06:50 WBC RBC Hgb Hct MCV MCH MCHC RDW Plt Count MPV Absolute Neuts (auto) Neutrophils % Neutrophils % (Manual) Band Neutrophils % Lymphocytes % Lymphocytes % (Manual) Monocytes % Monocytes % (Manual) Eosinophils % Eosinophils % (Manual) Basophils % Basophils % (Manual) Nucleated RBC % Platelet Estimate Platelet Comment Sodium Potassium Chloride Carbon Dioxide Anion Gap BUN Creatinine Creat Clearance w eGFR POC Glucometer 290 294 152 Random Glucose Calcium Total Bilirubin Direct Bilirubin AST ALT Alkaline Phosphatase Total Protein Albumin 08/26/18 08/26/18 06:51 06:51 WBC 7.1 RBC 3.88 Hgb 10.9 Hct 33.7 MCV 86.8 MCH 28.0 MCHC 32.3 RDW 18.9 H Plt Count 75 L MPV 9.3 Absolute Neuts (auto) 6.5 Neutrophils % 91.5 H Neutrophils % (Manual) 89.0 H Band Neutrophils % 5.0 Lymphocytes % 5.1 L D Lymphocytes % (Manual) 4.0 L D Monocytes % 3.2 L Monocytes % (Manual) 2 L Eosinophils % 0.0 D Eosinophils % (Manual) 0.0 Basophils % 0.2 Basophils % (Manual) 0.0 Nucleated RBC % 0 Platelet Estimate Decreased Platelet Comment No clotting detected Sodium 141 Potassium 3.7 Chloride 104 Carbon Dioxide 28 Anion Gap 9 BUN 48 H Creatinine 1.2 Creat Clearance w eGFR 42.70 POC Glucometer Random Glucose 167 H Calcium 8.1 L Total Bilirubin 0.6 Direct Bilirubin 0.3 H AST 45 H ALT 273 H Alkaline Phosphatase 188 H Total Protein 5.1 L Albumin 2.3 L Problem List - Problems (1) Hypothyroid Code(s): E03.9 - HYPOTHYROIDISM, UNSPECIFIED (2) Arrhythmia Code(s): I49.9 - CARDIAC ARRHYTHMIA, UNSPECIFIED (3) Ascites Code(s): R18.8 - OTHER ASCITES (4) CHF (congestive heart failure) Code(s): I50.9 - HEART FAILURE, UNSPECIFIED (5) COPD (chronic obstructive pulmonary disease) Code(s): J44.9 - CHRONIC OBSTRUCTIVE PULMONARY DISEASE, UNSPECIFIED (6) Shortness of breath Code(s): R06.02 - SHORTNESS OF BREATH (7) Diabetes Code(s): E11.9 - TYPE 2 DIABETES MELLITUS WITHOUT COMPLICATIONS Assessment/Plan IMP DYSPNEA SLOWLY IMPROVING COPD EXACERBATION DIASTOLIC CHF H/O ASTHMA FLUID OVERLOAD IDDM HYPOTHYROID CIRRHOSIS PLAN LASIX O2 INHALED BRONCHODILATORS TAPER MEDROL DAILY WTS GLYCEMIC CONTROL DR DEL TORO
[2018-08-26] MEDS ORDERED: INSULIN (NOVOLOG) ASPART 100 UNITS/ML 10ML VIAL ONE (18:32)
[2018-08-26] MEDS: SPIRONOLACTONE 25 MG TABLET (FP) PO SCH (23:33)
[2018-08-27] MEDS: ALBUTEROL SO4 2.5/IPRATROPIUM 0.5 INH SOL 3 ML VIAL.NEB. NEB SCH ×4 (07:37→20:17)
[2018-08-27] MEDS ORDERED: PT OWN MED DRAWER 7, Y5N ONE ×3 (07:39→14:44)
[2018-08-27] MEDS: BUDESONIDE 0.25 MG/2ML INH SUSP VIAL NEB SCH ×2 (07:41→20:17)
[2018-08-27] MEDS: LEVOTHYROXINE NA 125 MCG TABLET (FP) PO SCH (07:52)
[2018-08-27] MEDS: SPIRONOLACTONE 25 MG TABLET (FP) PO SCH ×2 (07:52→14:47)
[2018-08-27] MEDS: FUROSEMIDE 40 MG/4 ML INJECTABLE VIAL IVPB SCH ×2 (07:53→16:39)
[2018-08-27] MEDS: INSULIN SLIDING SCALE (NOVOLOG) 1 VIAL SQ SCH ×4 (07:53→21:55)
[2018-08-27] MEDS: INSULIN (LEVEMIR) 100 UNITS/ML UNITS SQ SCH ×2 (07:56→21:55)
[2018-08-27 08:18] LABS: ALBUMIN 2.4 g/dl (3.4-5.0); ALK PHOS 182 U/L (45-117); ANION GAP 7 MMOL/L (8-16); BILIRUBIN,DIRECT 0.3 mg/dL (0.0-0.2); BILIRUBIN,TOTAL 0.6 mg/dL (0.2-1); BLOOD UREA NITROGEN 50 mg/dL (7-18); CALCIUM 8.2 mg/dL (8.5-10.1); CHLORIDE 102 mmol/L (98-107); CO2 31 mmol/L (21-32); CREATININE 1.3 mg/dL (0.55-1.3); GLUCOSE,RANDOM 103 mg/dL (74-106); POTASSIUM 3.8 mmol/L (3.5-5.1); SGOT/AST 52 U/L (15-37); SGPT/ALT 237 U/L (13-61); SODIUM 140 mmol/L (136-145)
[2018-08-27] MEDS: DIGOXIN 0.125 MG TABLET (FP) PO SCH (11:36)
[2018-08-27] MEDS: ASPIRIN 81 MG CHEWABLE TABLETS PO SCH (11:37)
[2018-08-27] MEDS: MIDODRINE HCL 2.5 MG TABLET PO SCH ×3 (11:37→19:00)
[2018-08-27] MEDS: PANTOPRAZOLE 40 MG TABLET (FP) PO SCH (11:37)
[2018-08-27] MEDS: LACTOBACILLUS ACIDOPHILUS 1 TABLET PO SCH ×2 (11:37→21:54)
[2018-08-27] MEDS: HEPARIN NA (PORCINE) 5,000 UNITS/ML 1ML VIAL SQ SCH ×2 (11:37→21:54)
[2018-08-27] MEDS: CARVEDILOL 12.5 MG TABLET (FP) PO SCH ×2 (11:37→21:54)
--- NOTE | 2018-08-27 11:48 | PN ---
Progress Note, Physician Chief Complaint: patient seen and examined getting nebulizer treatment shays her breathing is a little better - Current Medication List Current Medications: Active Medications Albuterol/Ipratropium (Duoneb -) 1 amp NEB RQID [facility] Last Admin: 08/27/18 11:18 Dose: 1 amp Aspirin (Asa -) 81 mg PO DAILY [facility] Last Admin: 08/26/18 10:14 Dose: 81 mg Budesonide (Pulmicort 0.25 Mg Nebulizer -) 1 amp NEB RBID [facility] Last Admin: 08/27/18 07:41 Dose: 1 amp Carvedilol (Coreg -) 12.5 mg PO BID [facility] Last Admin: 08/26/18 23:33 Dose: 12.5 mg Dextrose (D50w (Syringe) -) 25 gm IVPUSH PRN PRN PRN Reason: HYPOGLYCEMIA Digoxin (Lanoxin -) 0.125 mg PO DAILY [facility] Last Admin: 08/26/18 10:14 Dose: 0.125 mg Diphenoxylate HCl/Atropine (Lomotil -) 1 combo PO Q8H PRN PRN Reason: DIARRHEA Last Admin: 08/19/18 22:14 Dose: 1 combo Furosemide (Lasix Injection -) 80 mg IVPB BID@0600,1400 [facility] Last Admin: 08/27/18 07:53 Dose: 80 mg Heparin Sodium (Porcine) (Heparin -) 5,000 unit SQ BID [facility] Last Admin: 08/26/18 23:41 Dose: 5,000 unit Insulin Aspart (Novolog Vial Sliding Scale -) 1 vial SQ [facility]; Protocol Last Admin: 08/27/18 07:53 Dose: Not Given Insulin Detemir (Levemir Vial) 30 units SQ AM [facility] Last Admin: 08/27/18 07:56 Dose: 30 unit Insulin Detemir (Levemir Vial) 24 units SQ HS [facility] Last Admin: 08/26/18 23:41 Dose: 24 units Lactobacillus Acidophilus (Bacid -) 1 tab PO BID [facility] Last Admin: 08/26/18 23:33 Dose: 1 tab Levothyroxine Sodium (Synthroid -) 125 mcg PO DAILY@0700 [facility] Last Admin: 08/27/18 07:52 Dose: 125 mcg Lidocaine/Aluminum/Magnesium/Simeth (Magic Mouthwash *Sjr Formula* -) 5 ml MM Q6HPO PRN PRN Reason: mouth pain Last Admin: 08/26/18 11:26 Dose: 5 ml Methylprednisolone Sodium Succinate (Solu-Medrol -) 40 mg IVPUSH BID [facility] Last Admin: 08/26/18 23:42 Dose: 40 mg Midodrine (Proamatine -) 7.5 mg PO TID-MID [facility] Last Admin: 08/26/18 17:56 Dose: 7.5 mg Pantoprazole Sodium (Protonix -) 40 mg PO DAILY [facility] Last Admin: 08/26/18 10:41 Dose: 40 mg Spironolactone (Aldactone -) 25 mg PO TID [facility] Last Admin: 08/27/18 07:52 Dose: 25 mg - Objective Vital Signs: Vital Signs Temperature 98.3 F 08/27/18 06:00 Pulse Rate 64 08/27/18 06:00 Respiratory Rate 22 H 08/27/18 06:00 Blood Pressure 128/65 08/27/18 06:00 O2 Sat by Pulse Oximetry (%) 97 08/25/18 21:00 Constitutional: Yes: Calm Cardiovascular: Yes: Regular Rate and Rhythm, S1, S2 Respiratory: Yes: Rhonchi, Wheezes Gastrointestinal: Yes: Normal Bowel Sounds, Soft Labs: CBC, BMP 08/26/18 06:51 08/27/18 07:00 INR, PTT INR 1.49 (0.83-1.09) H 08/21/18 06:00 Problem List - Problems (1) CHF (congestive heart failure) Assessment/Plan: iv lasix aldactone digoxin Code(s): I50.9 - HEART FAILURE, UNSPECIFIED (2) COPD (chronic obstructive pulmonary disease) Assessment/Plan: bronchodilators oxygen medrol iv bid will taper tommrow to oral Code(s): J44.9 - CHRONIC OBSTRUCTIVE PULMONARY DISEASE, UNSPECIFIED (3) Cirrhosis of liver Assessment/Plan: lft trending down hold all hepatotoxic agents Code(s): K74.60 - UNSPECIFIED CIRRHOSIS OF LIVER Qualifiers: Ascites presence: with ascites (4) Hypothyroid Code(s): E03.9 - HYPOTHYROIDISM, UNSPECIFIED (5) STEFANIE (acute kidney injury) Assessment/Plan: iv lasix Code(s): N17.9 - ACUTE KIDNEY FAILURE, UNSPECIFIED (6) Hepatorenal syndrome Assessment/Plan: midodrine iv lasix will change to po torsemide when ready for dc on aldactone repeat labs Code(s): K76.7 - HEPATORENAL SYNDROME
[2018-08-27] MEDS: methylPREDNISolone NA SUCC 40 MG/1 ML VIAL IVPUSH SCH ×2 (11:57→21:56)
--- NOTE | 2018-08-27 12:56 | PN ---
Progress Note (short form) - Note Progress Note: Breathing feels better. No CP. Afebrile. Intake & Output 08/24/18 08/25/18 08/26/18 08/27/18 23:59 23:59 23:59 23:59 Intake Total 130 1680 1235 Output Total 2800 1300 350 Balance -2670 380 885 Weight 161 lb 12.8 oz 159 lb 9.6 oz 159 lb 6.4 oz Last Vital Signs Temp Pulse Resp BP Pulse Ox 98.6 F 78 18 133/80 97 08/27/18 10:00 08/27/18 11:36 08/27/18 10:00 08/27/18 10:00 08/25/18 21:00 Active Medications Albuterol/Ipratropium (Duoneb -) 1 amp NEB RQID [facility] Last Admin: 08/27/18 11:18 Dose: 1 amp Aspirin (Asa -) 81 mg PO DAILY [facility] Last Admin: 08/27/18 11:37 Dose: 81 mg Budesonide (Pulmicort 0.25 Mg Nebulizer -) 1 amp NEB RBID [facility] Last Admin: 08/27/18 07:41 Dose: 1 amp Carvedilol (Coreg -) 12.5 mg PO BID [facility] Last Admin: 08/27/18 11:37 Dose: 12.5 mg Dextrose (D50w (Syringe) -) 25 gm IVPUSH PRN PRN PRN Reason: HYPOGLYCEMIA Digoxin (Lanoxin -) 0.125 mg PO DAILY [facility] Last Admin: 08/27/18 11:36 Dose: 0.125 mg Furosemide (Lasix Injection -) 80 mg IVPB BID@0600,1400 [facility] Last Admin: 08/27/18 07:53 Dose: 80 mg Heparin Sodium (Porcine) (Heparin -) 5,000 unit SQ BID [facility] Last Admin: 08/27/18 11:37 Dose: 5,000 unit Insulin Aspart (Novolog Vial Sliding Scale -) 1 vial SQ [facility]; Protocol Last Admin: 08/27/18 11:57 Dose: Not Given Insulin Detemir (Levemir Vial) 30 units SQ AM [facility] Last Admin: 08/27/18 07:56 Dose: 30 unit Insulin Detemir (Levemir Vial) 24 units SQ HS [facility] Last Admin: 08/26/18 23:41 Dose: 24 units Lactobacillus Acidophilus (Bacid -) 1 tab PO BID [facility] Last Admin: 08/27/18 11:37 Dose: 1 tab Levothyroxine Sodium (Synthroid -) 125 mcg PO DAILY@0700 [facility] Last Admin: 08/27/18 07:52 Dose: 125 mcg Lidocaine/Aluminum/Magnesium/Simeth (Magic Mouthwash *Sjr Formula* -) 5 ml MM Q6HPO PRN PRN Reason: mouth pain Last Admin: 08/26/18 11:26 Dose: 5 ml Methylprednisolone Sodium Succinate (Solu-Medrol -) 40 mg IVPUSH BID [facility] Last Admin: 08/27/18 11:57 Dose: 40 mg Midodrine (Proamatine -) 7.5 mg PO TID-MID [facility] Last Admin: 08/27/18 11:37 Dose: 7.5 mg Pantoprazole Sodium (Protonix -) 40 mg PO DAILY [facility] Last Admin: 08/27/18 11:37 Dose: 40 mg Spironolactone (Aldactone -) 25 mg PO TID [facility] Last Admin: 08/27/18 07:52 Dose: 25 mg Constitutional: Yes: NAD Eyes: Yes: WNL HENT: Yes: WNL Neck: Yes: WNL Cardiovascular: Yes: Regular Rate and Rhythm, S1, S2 Respiratory: Yes: Bilateral rales/rhonchi Gastrointestinal: Yes: Normal Bowel Sounds, Soft Extremities: Yes: WNL Edema: No Labs: Laboratory Results - last 24 hr 08/26/18 08/26/18 08/27/18 17:13 23:31 07:00 Sodium 140 Potassium 3.8 Chloride 102 Carbon Dioxide 31 Anion Gap 7 L BUN 50 H Creatinine 1.3 Creat Clearance w eGFR 38.93 POC Glucometer 281 227 Random Glucose 103 Calcium 8.2 L Total Bilirubin 0.6 Direct Bilirubin 0.3 H AST 52 H ALT 237 H Alkaline Phosphatase 182 H Total Protein 5.0 L Albumin 2.4 L 08/27/18 08/27/18 07:51 11:55 Sodium Potassium Chloride Carbon Dioxide Anion Gap BUN Creatinine Creat Clearance w eGFR POC Glucometer 73 149 Random Glucose Calcium Total Bilirubin Direct Bilirubin AST ALT Alkaline Phosphatase Total Protein Albumin Problem List - Problems (1) Hypothyroid Code(s): E03.9 - HYPOTHYROIDISM, UNSPECIFIED (2) Arrhythmia Code(s): I49.9 - CARDIAC ARRHYTHMIA, UNSPECIFIED (3) Ascites Code(s): R18.8 - OTHER ASCITES (4) CHF (congestive heart failure) Code(s): I50.9 - HEART FAILURE, UNSPECIFIED (5) COPD (chronic obstructive pulmonary disease) Code(s): J44.9 - CHRONIC OBSTRUCTIVE PULMONARY DISEASE, UNSPECIFIED (6) Shortness of breath Code(s): R06.02 - SHORTNESS OF BREATH (7) Diabetes Code(s): E11.9 - TYPE 2 DIABETES MELLITUS WITHOUT COMPLICATIONS Assessment/Plan IMP DYSPNEA SLOWLY IMPROVING COPD EXACERBATION DIASTOLIC CHF H/O ASTHMA FLUID OVERLOAD IDDM HYPOTHYROID CIRRHOSIS PLAN LASIX O2 INHALED BRONCHODILATORS CAN LIKELY CHANGE TO PREDNISONE IN AM DAILY WTS GLYCEMIC CONTROL DR DEL TORO
--- NOTE | 2018-08-27 17:19 | PN ---
Progress Note (short form) - Note Progress Note: Renal follow up for CKD Pt seen and examined at the bedside feels better leg edema improving Vital Signs Temperature 97.6 F 08/27/18 14:25 Pulse Rate 65 08/27/18 14:25 Respiratory Rate 18 08/27/18 14:25 Blood Pressure 111/45 L 08/27/18 14:25 O2 Sat by Pulse Oximetry (%) 98 08/27/18 13:04 Intake & Output 08/24/18 08/25/18 08/26/18 08/27/18 23:59 23:59 23:59 23:59 Intake Total 130 1680 1235 300 Output Total 2800 1300 350 300 Balance -2670 380 885 0 Weight 73.391 kg 72.393 kg 72.303 kg NAD awake and alert RRR CTA soft NT/ND, mild ascities + LE edema CBC, BMP 08/26/18 06:51 08/27/18 07:00 Current Medications Albuterol/Ipratropium (Duoneb -) 1 amp NEB RQID [facility] Last Admin: 08/27/18 11:18 Dose: 1 amp Aspirin (Asa -) 81 mg PO DAILY [facility] Last Admin: 08/27/18 11:37 Dose: 81 mg Budesonide (Pulmicort 0.25 Mg Nebulizer -) 1 amp NEB RBID [facility] Last Admin: 08/27/18 07:41 Dose: 1 amp Carvedilol (Coreg -) 12.5 mg PO BID [facility] Last Admin: 08/27/18 11:37 Dose: 12.5 mg Dextrose (D50w (Syringe) -) 25 gm IVPUSH PRN PRN PRN Reason: HYPOGLYCEMIA Digoxin (Lanoxin -) 0.125 mg PO DAILY [facility] Last Admin: 08/27/18 11:36 Dose: 0.125 mg Heparin Sodium (Porcine) (Heparin -) 5,000 unit SQ BID [facility] Last Admin: 08/27/18 11:37 Dose: 5,000 unit Insulin Aspart (Novolog Vial Sliding Scale -) 1 vial SQ [facility]; Protocol Last Admin: 08/27/18 17:14 Dose: 4 units Insulin Detemir (Levemir Vial) 30 units SQ AM [facility] Last Admin: 08/27/18 07:56 Dose: 30 unit Insulin Detemir (Levemir Vial) 24 units SQ HS [facility] Last Admin: 08/26/18 23:41 Dose: 24 units Lactobacillus Acidophilus (Bacid -) 1 tab PO BID [facility] Last Admin: 08/27/18 11:37 Dose: 1 tab Levothyroxine Sodium (Synthroid -) 125 mcg PO DAILY@0700 [facility] Last Admin: 08/27/18 07:52 Dose: 125 mcg Lidocaine/Aluminum/Magnesium/Simeth (Magic Mouthwash *Sjr Formula* -) 5 ml MM Q6HPO PRN PRN Reason: mouth pain Last Admin: 08/26/18 11:26 Dose: 5 ml Methylprednisolone Sodium Succinate (Solu-Medrol -) 40 mg IVPUSH BID [facility] Last Admin: 08/27/18 11:57 Dose: 40 mg Midodrine (Proamatine -) 7.5 mg PO TID-MID [facility] Last Admin: 08/27/18 16:01 Dose: 7.5 mg Pantoprazole Sodium (Protonix -) 40 mg PO DAILY [facility] Last Admin: 08/27/18 11:37 Dose: 40 mg Torsemide (Demadex -) 40 mg PO BIDLASIX [facility] 83 year old woman with history of CHF, CAD s/p CABG, Cirrhosis, fatty liver, COPD, [place] who presented with sob with fluid overload with abnormal renal function. #STEFANIE vs. CKD with fluid overload (from HRS vs. CRS vs. intrinsic renal dysfunction) #CHF exacerbation #Cirrhosis with ascities #COPD exacerbation #Anemia #Thrombocytopenia in setting of liver disease Renal function stable and pt is losing water weight changing diuretics to oral torsemide BID holding aldactone because of low BP continue Midodrine TID to maintain BP steroid taper as per pulmonary d/c planning as per primary Gustavo Claros DO
[2018-08-28] MEDS ORDERED: PT OWN MED DRAWER 7, Y5N ONE ×3 (05:35→15:33)
[2018-08-28] MEDS: INSULIN (LEVEMIR) 100 UNITS/ML UNITS SQ SCH ×2 (06:41→22:36)
[2018-08-28] MEDS: LEVOTHYROXINE NA 125 MCG TABLET (FP) PO SCH (06:41)
[2018-08-28] MEDS: TORSEMIDE 20 MG TABLET (FP) PO SCH ×2 (06:41→15:38)
[2018-08-28] MEDS: INSULIN SLIDING SCALE (NOVOLOG) 1 VIAL SQ SCH ×4 (06:41→22:35)
[2018-08-28] MEDS ORDERED: INSULIN (NOVOLOG) ASPART 100 UNITS/ML 10ML VIAL ONE ×2 (07:05→21:14)
[2018-08-28] MEDS ORDERED: INSULIN (LEVEMIR) 100 UNITS/ML UNITS SQ ONE ×2 (07:05→21:14)
[2018-08-28 07:57] LABS: BASO % 0.1 % (0-2.0); HEMATOCRIT 34.8 % (32.4-45.2); MCH 27.7 pg (25.7-33.7); MCHC 31.5 g/dl (32.0-36.0); MEAN PLT VOLUME 9.2 fl (7.5-11.1); MONO % 4.5 % (3.8-10.2); NEUT % 91.4 % (42.8-82.8); PLATELET COUNT 75 K/MM3 (134-434); RBC 3.96 M/mm3 (3.60-5.2); RDW 19.1 % (11.6-15.6); WHITE BLOOD COUNT 5.8 K/mm3 (4.0-10.0)
[2018-08-28] MEDS: BUDESONIDE 0.25 MG/2ML INH SUSP VIAL NEB SCH ×2 (08:00→20:43)
[2018-08-28] MEDS: ALBUTEROL SO4 2.5/IPRATROPIUM 0.5 INH SOL 3 ML VIAL.NEB. NEB SCH ×4 (08:00→20:55)
[2018-08-28 08:51] LABS: ALBUMIN 2.3 g/dl (3.4-5.0); ALK PHOS 181 U/L (45-117); ANION GAP 10 MMOL/L (8-16); BILIRUBIN,TOTAL 0.6 mg/dL (0.2-1); BLOOD UREA NITROGEN 50 mg/dL (7-18); CALCIUM 8.2 mg/dL (8.5-10.1); CHLORIDE 104 mmol/L (98-107); CO2 26 mmol/L (21-32); CREATININE 1.2 mg/dL (0.55-1.3); GLUCOSE,RANDOM 212 mg/dL (74-106); POTASSIUM 3.5 mmol/L (3.5-5.1); SGOT/AST 42 U/L (15-37); SGPT/ALT 215 U/L (13-61); SODIUM 140 mmol/L (136-145); TOT PROT 5.1 g/dl (6.4-8.2)
--- NOTE | 2018-08-28 11:59 | DS ---
Physical Examination Vital Signs: Vital Signs Temperature 97.7 F 08/28/18 06:00 Pulse Rate 56 L 08/28/18 06:00 Respiratory Rate 19 08/28/18 06:00 Blood Pressure 129/53 L 08/28/18 06:00 O2 Sat by Pulse Oximetry (%) 100 08/27/18 21:00 Constitutional: Yes: Calm Cardiovascular: Yes: Regular Rate and Rhythm, S1, S2 Respiratory: Yes: On Nasal O2, Rhonchi Gastrointestinal: Yes: Normal Bowel Sounds, Soft Neurological: Yes: Alert, Oriented Labs: CBC, BMP 08/28/18 07:00 08/28/18 07:00 Discharge Summary Reason For Visit: HEPATIC CIRRHOSIS/UPPER GASTROINTESTINAL HEMORRHAG Current Active Problems STEFANIE (acute kidney injury) (Acute) Angiodysplasia of gastrointestinal tract (Acute) Arrhythmia (Acute) Ascites (Acute) CHF (congestive heart failure) (Acute) COPD (chronic obstructive pulmonary disease) (Acute) Cirrhosis of liver (Acute) Colon polyp (Acute) Diabetes (Acute) Diarrhea (Acute) GI bleed (Acute) Heme positive stool (Acute) Hepatorenal syndrome (Acute) Hypothyroid (Acute) Pulmonary hypertension (Acute) Shortness of breath (Acute) Transaminitis (Acute) Tricuspid valve insufficiency (Acute) Hospital Course: - Admission History of Present Illness: 83yo f with PMH of cirrhosis, fatty liver, COPD, CHF, DM, asthma, CABG sent to ED from Dr. Hernandez's office for evaluation of fluid overload. Pt was recently discharged from [facility] 4-5 days ago for COPD exacerbation/CHF. While she was there she was told she has cirrhosis. She was given GI follow up. Patient said her chief complaint then was SOB and she presents today with complaints of SOB. She first went to Dr. Hernandez's office and sent to ER. She admits to frontal headaches which have been chronic and abdominal distension which has decreased since her discharge from [place]. She also admits to chronic diarrhea which she says is dark. She denies chest pain, abdominal pain, n/v, focal neurological deficits. She is not taking any anticoagulants. - Past Medical History Cardiovascular: Yes: CHF, HTN, Hyperlipdemia. No: AFIB Pulmonary: Yes: COPD Gastrointestinal: Yes: GERD Hepatobiliary: Yes: Cirrhosis ...: No Endocrine: Yes: Diabetes Mellitus - Smoking History Smoking history: Former smoker Have you smoked in the past 12 months: No chf /hepatorenal syndrome: fluid overload- iv lasix change to po torsemide, stop aldactone given low BP midodrine tid DM on insulin hgab1c 8.7 copd on iv steroids and bronchodilators - change to po steroids with taper hypothyroid on synthroid inc LFT now trending down secondary to increased congestion Condition: Improved - Instructions Referrals: Bhupinder Arroyo MD [Staff Physician] - Disposition: HOME - Home Medications Comprehensive Discharge Medication List: Ambulatory Orders Aspirin 81 mg PO DAILY 08/14/18 Atorvastatin Ca [Lipitor] 10 mg PO HS 08/14/18 Budesonide [Pulmicort 0.25 mg -] 1 neb PO BID 08/14/18 Carvedilol [Coreg -] 3.125 mg PO BID 08/14/18 Cholecalciferol (Vitamin D3) [Vitamin D3] 1,000 unit PO DAILY 08/14/18 Furosemide 40 mg PO DAILY 08/14/18 Insulin Glargine,Hum.rec.anlog [Lantus] 100 unit SQ HS 08/14/18 Insulin Lispro [Humalog] 6 units SQ [facility]IR 08/14/18 Levothyroxine [Synthroid -] 125 mcg PO DAILY 08/14/18 Magnesium Oxide [Mag-Oxide] 400 mg PO BID 08/14/18 Metformin HCl [Metformin HCl ER] 1,000 mg PO DAILY 08/14/18 Prednisone 10 mg PO DAILY 08/14/18 Repaglinide 1 mg PO HS 08/14/18
--- NOTE | 2018-08-28 12:00 | PN ---
Progress Note (short form) - Note Progress Note: Breathing feels overall better. Some LUNA. Ambulated for 5 minutes yesterday and did not desaturate, but test was stopped as HR went from 58 to 75. No CP. Afebrile. Intake & Output 08/25/18 08/26/18 08/27/18 08/28/18 23:59 23:59 23:59 23:59 Intake Total 1680 1235 1150 Output Total 8944 721 7860 Balance 380 885 -50 Weight 159 lb 9.6 oz 159 lb 6.4 oz 161 lb Last Vital Signs Temp Pulse Resp BP Pulse Ox 97.7 F 56 L 19 129/53 L 100 08/28/18 06:00 08/28/18 06:00 08/28/18 06:00 08/28/18 06:00 08/27/18 21:00 Active Medications Albuterol/Ipratropium (Duoneb -) 1 amp NEB RQID [facility] Last Admin: 08/28/18 08:00 Dose: 1 amp Aspirin (Asa -) 81 mg PO DAILY [facility] Last Admin: 08/27/18 11:37 Dose: 81 mg Budesonide (Pulmicort 0.25 Mg Nebulizer -) 1 amp NEB RBID [facility] Last Admin: 08/28/18 08:00 Dose: 1 amp Carvedilol (Coreg -) 12.5 mg PO BID [facility] Last Admin: 08/27/18 21:54 Dose: 12.5 mg Dextrose (D50w (Syringe) -) 25 gm IVPUSH PRN PRN PRN Reason: HYPOGLYCEMIA Digoxin (Lanoxin -) 0.125 mg PO DAILY [facility] Last Admin: 08/27/18 11:36 Dose: 0.125 mg Heparin Sodium (Porcine) (Heparin -) 5,000 unit SQ BID [facility] Last Admin: 08/27/18 21:54 Dose: 5,000 unit Insulin Aspart (Novolog Vial Sliding Scale -) 1 vial SQ [facility]; Protocol Last Admin: 08/28/18 06:41 Dose: Not Given Insulin Detemir (Levemir Vial) 30 units SQ AM [facility] Last Admin: 08/28/18 06:41 Dose: 30 unit Insulin Detemir (Levemir Vial) 24 units SQ HS [facility] Last Admin: 08/27/18 21:55 Dose: 24 units Lactobacillus Acidophilus (Bacid -) 1 tab PO BID [facility] Last Admin: 08/27/18 21:54 Dose: 1 tab Levothyroxine Sodium (Synthroid -) 125 mcg PO DAILY@0700 [facility] Last Admin: 08/28/18 06:41 Dose: 125 mcg Lidocaine/Aluminum/Magnesium/Simeth (Magic Mouthwash *Sjr Formula* -) 5 ml MM Q6HPO PRN PRN Reason: mouth pain Last Admin: 08/26/18 11:26 Dose: 5 ml Methylprednisolone Sodium Succinate (Solu-Medrol -) 40 mg IVPUSH BID [facility] Last Admin: 08/27/18 21:56 Dose: 40 mg Midodrine (Proamatine -) 7.5 mg PO TID-MID [facility] Last Admin: 08/27/18 19:00 Dose: 7.5 mg Pantoprazole Sodium (Protonix -) 40 mg PO DAILY [facility] Last Admin: 08/27/18 11:37 Dose: 40 mg Torsemide (Demadex -) 40 mg PO BIDLASIX [facility] Last Admin: 08/28/18 06:41 Dose: 40 mg Constitutional: Yes: NAD Eyes: Yes: WNL HENT: Yes: WNL Neck: Yes: WNL Cardiovascular: Yes: Regular Rate and Rhythm, S1, S2 Respiratory: Yes: Bilateral rales/rhonchi Gastrointestinal: Yes: Normal Bowel Sounds, Soft Extremities: Yes: WNL Edema: No Labs: Laboratory Results - last 24 hr 08/27/18 08/27/18 08/27/18 11:55 17:11 21:53 WBC RBC Hgb Hct MCV MCH MCHC RDW Plt Count MPV Absolute Neuts (auto) Neutrophils % Lymphocytes % Monocytes % Eosinophils % Basophils % Nucleated RBC % Sodium Potassium Chloride Carbon Dioxide Anion Gap BUN Creatinine Creat Clearance w eGFR POC Glucometer 149 216 251 Random Glucose Calcium Total Bilirubin AST ALT Alkaline Phosphatase Total Protein Albumin TSH 08/28/18 08/28/18 08/28/18 06:40 07:00 07:00 WBC 5.8 RBC 3.96 Hgb 11.0 Hct 34.8 MCV 88.0 MCH 27.7 MCHC 31.5 L RDW 19.1 H Plt Count 75 L MPV 9.2 Absolute Neuts (auto) 5.3 Neutrophils % 91.4 H Lymphocytes % 4.0 L D Monocytes % 4.5 Eosinophils % 0.0 Basophils % 0.1 Nucleated RBC % 0 Sodium 140 Potassium 3.5 Chloride 104 Carbon Dioxide 26 Anion Gap 10 BUN 50 H Creatinine 1.2 Creat Clearance w eGFR 42.70 POC Glucometer 198 Random Glucose 212 H Calcium 8.2 L Total Bilirubin 0.6 AST 42 H ALT 215 H Alkaline Phosphatase 181 H Total Protein 5.1 L Albumin 2.3 L TSH 0.46 Problem List - Problems (1) Hypothyroid Code(s): E03.9 - HYPOTHYROIDISM, UNSPECIFIED (2) Arrhythmia Code(s): I49.9 - CARDIAC ARRHYTHMIA, UNSPECIFIED (3) Ascites Code(s): R18.8 - OTHER ASCITES (4) CHF (congestive heart failure) Code(s): I50.9 - HEART FAILURE, UNSPECIFIED (5) COPD (chronic obstructive pulmonary disease) Code(s): J44.9 - CHRONIC OBSTRUCTIVE PULMONARY DISEASE, UNSPECIFIED (6) Shortness of breath Code(s): R06.02 - SHORTNESS OF BREATH (7) Diabetes Code(s): E11.9 - TYPE 2 DIABETES MELLITUS WITHOUT COMPLICATIONS Assessment/Plan IMP DYSPNEA SLOWLY IMPROVING COPD EXACERBATION DIASTOLIC CHF H/O ASTHMA FLUID OVERLOAD IDDM HYPOTHYROID CIRRHOSIS PLAN LASIX O2 INHALED BRONCHODILATORS PREDNISONE TAPER D/C PLANNING DR DEL TORO
--- NOTE | 2018-08-28 12:09 | PN ---
Progress Note (short form) - Note Progress Note: patient does not qualify for home oxygen discharge to [facility] in [place] if bed available Problem List - Problems (1) CHF (congestive heart failure) Code(s): I50.9 - HEART FAILURE, UNSPECIFIED (2) COPD (chronic obstructive pulmonary disease) Code(s): J44.9 - CHRONIC OBSTRUCTIVE PULMONARY DISEASE, UNSPECIFIED (3) Cirrhosis of liver Code(s): K74.60 - UNSPECIFIED CIRRHOSIS OF LIVER Qualifiers: Ascites presence: with ascites (4) Hypothyroid Code(s): E03.9 - HYPOTHYROIDISM, UNSPECIFIED (5) STEFANIE (acute kidney injury) Code(s): N17.9 - ACUTE KIDNEY FAILURE, UNSPECIFIED (6) Hepatorenal syndrome Code(s): K76.7 - HEPATORENAL SYNDROME
[2018-08-28] MEDS: methylPREDNISolone NA SUCC 40 MG/1 ML VIAL IVPUSH SCH (12:10)
[2018-08-28] MEDS: PANTOPRAZOLE 40 MG TABLET (FP) PO SCH (12:11)
[2018-08-28] MEDS: MIDODRINE HCL 2.5 MG TABLET PO SCH ×3 (12:13→19:14)
[2018-08-28] MEDS: LACTOBACILLUS ACIDOPHILUS 1 TABLET PO SCH ×2 (12:13→22:44)
[2018-08-28] MEDS: CARVEDILOL 12.5 MG TABLET (FP) PO SCH ×2 (12:13→22:37)
[2018-08-28] MEDS: HEPARIN NA (PORCINE) 5,000 UNITS/ML 1ML VIAL SQ SCH ×2 (12:13→22:37)
[2018-08-28] MEDS: ASPIRIN 81 MG CHEWABLE TABLETS PO SCH (12:13)
[2018-08-28] MEDS: DIGOXIN 0.125 MG TABLET (FP) PO SCH (12:14)
[2018-08-28 13:33] LABS: ANISOCYTOSIS 1+; MACROCYTOSIS 1+; OVALOCYTE 1+
--- NOTE | 2018-08-28 15:26 | PN ---
Progress Note (short form) - Note Progress Note: Renal follow up for CKD Pt seen and examined at the bedside feels better no sob, cp, abd pain Vital Signs Temperature 95.6 F L 08/28/18 14:34 Pulse Rate 63 08/28/18 14:34 Respiratory Rate 19 08/28/18 06:00 Blood Pressure 131/49 L 08/28/18 14:34 O2 Sat by Pulse Oximetry (%) 100 08/27/18 21:00 Intake & Output 08/25/18 08/26/18 08/27/18 08/28/18 23:59 23:59 23:59 23:59 Intake Total 1680 1235 1150 600 Output Total 5942 737 5609 1400 Balance 380 885 -50 -800 Weight 72.393 kg 72.303 kg 73.028 kg NAD awake and alert RRR CTA soft NT/ND, mild ascities + LE edema CBC, BMP 08/28/18 07:00 08/28/18 07:00 Current Medications Albuterol/Ipratropium (Duoneb -) 1 amp NEB RQID [facility] Last Admin: 08/28/18 12:00 Dose: 1 amp Aspirin (Asa -) 81 mg PO DAILY [facility] Last Admin: 08/28/18 12:13 Dose: 81 mg Budesonide (Pulmicort 0.25 Mg Nebulizer -) 1 amp NEB RBID [facility] Last Admin: 08/28/18 08:00 Dose: 1 amp Carvedilol (Coreg -) 12.5 mg PO BID [facility] Last Admin: 08/28/18 12:13 Dose: 12.5 mg Dextrose (D50w (Syringe) -) 25 gm IVPUSH PRN PRN PRN Reason: HYPOGLYCEMIA Digoxin (Lanoxin -) 0.125 mg PO DAILY [facility] Last Admin: 08/28/18 12:14 Dose: 0.125 mg Heparin Sodium (Porcine) (Heparin -) 5,000 unit SQ BID [facility] Last Admin: 08/28/18 12:13 Dose: 5,000 unit Insulin Aspart (Novolog Vial Sliding Scale -) [address] [facility]; Protocol Last Admin: 08/28/18 12:39 Dose: Not Given Insulin Detemir (Levemir Vial) 30 units SQ AM [facility] Last Admin: 08/28/18 06:41 Dose: 30 unit Insulin Detemir (Levemir Vial) 24 units SQ HS [facility] Last Admin: 08/27/18 21:55 Dose: 24 units Lactobacillus Acidophilus (Bacid -) 1 tab PO BID [facility] Last Admin: 08/28/18 12:13 Dose: 1 tab Levothyroxine Sodium (Synthroid -) 125 mcg PO DAILY@0700 [facility] Last Admin: 08/28/18 06:41 Dose: 125 mcg Lidocaine/Aluminum/Magnesium/Simeth (Magic Mouthwash *Sjr Formula* -) 5 ml MM Q6HPO PRN PRN Reason: mouth pain Last Admin: 08/26/18 11:26 Dose: 5 ml Midodrine (Proamatine -) 7.5 mg PO TID-MID [facility] Last Admin: 08/28/18 12:13 Dose: Not Given Pantoprazole Sodium (Protonix -) 40 mg PO DAILY [facility] Last Admin: 08/28/18 12:11 Dose: 40 mg Prednisone (Deltasone -) 40 mg PO DAILY [facility] Torsemide (Demadex -) 40 mg PO BIDLASIX [facility] Last Admin: 08/28/18 06:41 Dose: 40 mg 83 year old woman with history of CHF, CAD s/p CABG, Cirrhosis, fatty liver, COPD, [place] who presented with sob with fluid overload with abnormal renal function. #STEFANIE vs. CKD with fluid overload (from HRS vs. CRS vs. intrinsic renal dysfunction) #CHF exacerbation #Cirrhosis with ascities #COPD exacerbation #Anemia #Thrombocytopenia in setting of liver disease Renal function stable continue oral torsemide BID holding aldactone because of low BP continue Midodrine TID to maintain BP steroid taper as per pulmonary d/c planning as per primary Gustavo Claros DO
--- NOTE | 2018-08-28 15:51 | PN ---
Progress Note (short form) - Note Progress Note: spoke to patient daughter leatha [phone] and all questions answered and adressed Problem List - Problems (1) CHF (congestive heart failure) Code(s): I50.9 - HEART FAILURE, UNSPECIFIED (2) COPD (chronic obstructive pulmonary disease) Code(s): J44.9 - CHRONIC OBSTRUCTIVE PULMONARY DISEASE, UNSPECIFIED (3) Cirrhosis of liver Code(s): K74.60 - UNSPECIFIED CIRRHOSIS OF LIVER Qualifiers: Ascites presence: with ascites (4) Hypothyroid Code(s): E03.9 - HYPOTHYROIDISM, UNSPECIFIED (5) STEFANIE (acute kidney injury) Code(s): N17.9 - ACUTE KIDNEY FAILURE, UNSPECIFIED (6) Hepatorenal syndrome Code(s): K76.7 - HEPATORENAL SYNDROME
--- NOTE | 2018-08-28 17:00 | PN ---
GI Progress Note Subjective: GI NOte: Breathing appears improved. AST also normalized but ALT still elevated. Chronic hepatitis studies unrevealing as is her AFP. No abdominal pain - Objective Vital Signs: Vital Signs Temperature 95.6 F L 08/28/18 14:34 Pulse Rate 63 08/28/18 14:34 Respiratory Rate 19 08/28/18 06:00 Blood Pressure 131/49 L 08/28/18 14:34 O2 Sat by Pulse Oximetry (%) 100 08/27/18 21:00 Laboratory Tests 08/15/18 08/15/18 08/16/18 06:25 06:25 06:00 Glucose Iron TIBC 269 Iron Saturation 42 Ferritin 224.6 GGT AST ALT Alkaline Phosphatase Tumor Marker AFP CAL Screen Smooth Musc &[employer]ING [employer]PER[employer] Intrp Tiss Transglutamin IgG Tiss Transglutamin IgA Hepatitis A Ab Total Negative Hep Bs Antigen Negative Hep Bs Antibody Non reactive Hep B Core Total Ab Negative Hep C Ab Diagnostic 08/16/18 08/16/18 08/19/18 06:00 06:00 06:00 Glucose 135 H Iron 50 TIBC Iron Saturation Ferritin GGT AST ALT Alkaline Phosphatase Tumor Marker AFP 2.8 CAL Screen Negative Smooth Musc &[employer]ING SUPER[employer] Intrp 2 Tiss Transglutamin IgG < 2 Tiss Transglutamin IgA < 2 Hepatitis A Ab Total Hep Bs Antigen Hep Bs Antibody Hep B Core Total Ab Hep C Ab Diagnostic <0.1 08/20/18 08/28/18 06:00 07:00 Glucose Iron TIBC Iron Saturation Ferritin GGT 408 H AST 42 H ALT 215 H Alkaline Phosphatase 181 H Tumor Marker AFP CAL Screen Smooth Musc &[employer]ING SUPER[employer] Intrp Tiss Transglutamin IgG Tiss Transglutamin IgA Hepatitis A Ab Total Hep Bs Antigen Hep Bs Antibody Hep B Core Total Ab Hep C Ab Diagnostic Constitutional: Anxious ...Auscultate: Yes: Normoactive Bowel Sounds ...Palpate: Yes: Soft, Other (nontender) Labs: CBC, BMP 08/28/18 07:00 08/28/18 07:00 INR, PTT INR 1.49 (0.83-1.09) H 08/21/18 06:00 Problem List - Problems (1) Cirrhosis of liver Assessment/Plan: Suspect cardiac cirrhosis with superimposed DILI due to Macrodantin in the past and perhaps with a contribution from her Methotrexate. Have advised avoiding any further MTX until her LFTs improve. Code(s): K74.60 - UNSPECIFIED CIRRHOSIS OF LIVER Qualifiers: Ascites presence: with ascites (2) Pulmonary hypertension Code(s): I27.20 - PULMONARY HYPERTENSION, UNSPECIFIED (3) Tricuspid valve insufficiency Code(s): I07.1 - RHEUMATIC TRICUSPID INSUFFICIENCY (4) Colon polyp Code(s): K63.5 - POLYP OF COLON (5) Angiodysplasia of gastrointestinal tract Code(s): K55.20 - ANGIODYSPLASIA OF COLON WITHOUT HEMORRHAGE (6) Ascites Code(s): R18.8 - OTHER ASCITES (7) CHF (congestive heart failure) Code(s): I50.9 - HEART FAILURE, UNSPECIFIED (8) COPD (chronic obstructive pulmonary disease) Code(s): J44.9 - CHRONIC OBSTRUCTIVE PULMONARY DISEASE, UNSPECIFIED (9) GI bleed Code(s): K92.2 - GASTROINTESTINAL HEMORRHAGE, UNSPECIFIED (10) Heme positive stool Code(s): R19.5 - OTHER FECAL ABNORMALITIES (11) Hypothyroid Code(s): E03.9 - HYPOTHYROIDISM, UNSPECIFIED
[2018-08-28] MEDS ORDERED: BUDESONIDE 0.5 MG/2 ML INH SUSP VIAL NEB ONE (20:39)
[2018-08-29] MEDS ORDERED: PT OWN MED DRAWER 7, Y5N ONE (06:41)
[2018-08-29] MEDS: LEVOTHYROXINE NA 125 MCG TABLET (FP) PO SCH (06:51)
[2018-08-29] MEDS: TORSEMIDE 20 MG TABLET (FP) PO SCH ×2 (06:51→14:24)
[2018-08-29] MEDS: INSULIN (LEVEMIR) 100 UNITS/ML UNITS SQ SCH (06:51)
[2018-08-29] MEDS: INSULIN SLIDING SCALE (NOVOLOG) 1 VIAL SQ SCH ×2 (06:53→11:27)
[2018-08-29] MEDS ORDERED: BUDESONIDE 0.5 MG/2 ML INH SUSP VIAL NEB ONE (07:37)
[2018-08-29 08:16] LABS: BASO % 0.3 % (0-2.0); EOS % 0.7 % (0-4.5); HEMOGLOBIN 11.6 GM/dL (10.7-15.3); LYMPH % 6.9 % (8-40); MCH 27.7 pg (25.7-33.7); MCHC 31.4 g/dl (32.0-36.0); MEAN CELL VOLUME 88.2 fl (80-96); MEAN PLT VOLUME 9.3 fl (7.5-11.1); MONO % 6.1 % (3.8-10.2); PLATELET COUNT 90 K/MM3 (134-434); RDW 19.6 % (11.6-15.6)
[2018-08-29] MEDS: BUDESONIDE 0.25 MG/2ML INH SUSP VIAL NEB SCH (08:39)
[2018-08-29] MEDS: ALBUTEROL SO4 2.5/IPRATROPIUM 0.5 INH SOL 3 ML VIAL.NEB. NEB SCH ×2 (08:39→11:37)
[2018-08-29 08:44] LABS: ALBUMIN 2.4 g/dl (3.4-5.0); ALK PHOS 171 U/L (45-117); ANION GAP 5 MMOL/L (8-16); BILIRUBIN,TOTAL 0.7 mg/dL (0.2-1); BLOOD UREA NITROGEN 49 mg/dL (7-18); CALCIUM 8.5 mg/dL (8.5-10.1); CHLORIDE 103 mmol/L (98-107); CO2 35 mmol/L (21-32); CREATININE 1.1 mg/dL (0.55-1.3); GLUCOSE,RANDOM 131 mg/dL (74-106); LDH 298 U/L (84-246); POTASSIUM 3.3 mmol/L (3.5-5.1); SGOT/AST 46 U/L (15-37); SGPT/ALT 189 U/L (13-61); SODIUM 143 mmol/L (136-145); TOT PROT 5.5 g/dl (6.4-8.2)
[2018-08-29] MEDS: LACTOBACILLUS ACIDOPHILUS 1 TABLET PO SCH (09:54)
[2018-08-29] MEDS: ASPIRIN 81 MG CHEWABLE TABLETS PO SCH (09:54)
[2018-08-29] MEDS: CARVEDILOL 12.5 MG TABLET (FP) PO SCH (09:55)
[2018-08-29] MEDS: DIGOXIN 0.125 MG TABLET (FP) PO SCH (09:55)
[2018-08-29] MEDS: HEPARIN NA (PORCINE) 5,000 UNITS/ML 1ML VIAL SQ SCH (09:56)
[2018-08-29] MEDS: PANTOPRAZOLE 40 MG TABLET (FP) PO SCH (09:58)
[2018-08-29] MEDS ORDERED: predniSONE 20 MG TABLET (UD) PO SCH (10:00)
[2018-08-29] MEDS: MIDODRINE HCL 2.5 MG TABLET PO SCH ×2 (10:28→14:25)
[2018-08-29] MEDS ORDERED: POTASSIUM CHLORIDE TABS 20 MEQ TABLET.ER (FP) PO SCH (13:15)
[2018-08-29 13:17] VITALS: BP 109/41; PULSE 61; TEMP 97.5
--- NOTE | 2018-08-29 17:40 | PN ---
Progress Note (short form) - Note Progress Note: Renal follow up for CKD Pt seen and examined at the bedside earlier today continues to have cough and feels like mucus is stuck in her throat no sob, cp, abd pain making urine leg edema is getting better Vital Signs Temperature 97.5 F L 08/29/18 13:15 Pulse Rate 61 08/29/18 13:15 Respiratory Rate 16 08/29/18 13:15 Blood Pressure 109/41 L 08/29/18 13:15 O2 Sat by Pulse Oximetry (%) 100 08/29/18 09:00 NAD awake and alert RRR CTA soft NT/ND, mild ascities + LE edema CBC, BMP 08/29/18 08:00 08/29/18 08:00 83 year old woman with history of CHF, CAD s/p CABG, Cirrhosis, fatty liver, COPD, [place] who presented with sob with fluid overload with abnormal renal function. #STEFANIE vs. CKD with fluid overload (from HRS vs. CRS vs. intrinsic renal dysfunction) #CHF exacerbation #Cirrhosis with ascities #COPD exacerbation #Anemia #Thrombocytopenia in setting of liver disease Renal function stable continue oral torsemide BID start oral KCL given hypokalemia standing KCl should be continue while pt is not on aldactone Gustavo Claros DO
== END 2018-08-29 15:22 | DRG 432 ==
LOC: JER 16:20 → JERBED 20:05 → J7W 08-15 03:23 → J4S 08-15 15:39 → JERBED 08-25 21:49 → J5S 08-25 21:52
PROVIDERS: ADMIT Internal Medicine; ATTEND Family Medicine
DX: K74.60 Unspecified cirrhosis of liver (principal); K76.7 Hepatorenal syndrome; I50.33 Acute on chronic diastolic (congestive) heart failure; K55.21 Angiodysplasia of colon with hemorrhage; I13.0 Hypertensive heart and chronic kidney disease with heart failure and stage 1 through stage 4 chronic kidney disease, or unspecified chronic kidney disease; J44.1 Chronic obstructive pulmonary disease with (acute) exacerbation; R18.8 Other ascites; I48.1 Persistent atrial fibrillation; I11.0 Hypertensive heart disease with heart failure; E11.9 Type 2 diabetes mellitus without complications; I25.10 Atherosclerotic heart disease of native coronary artery without angina pectoris; Z95.1 Presence of aortocoronary bypass graft; K76.0 Fatty (change of) liver, not elsewhere classified; Z79.4 Long term (current) use of insulin; Z79.84 Long term (current) use of oral hypoglycemic drugs; Z87.891 Personal history of nicotine dependence; E03.9 Hypothyroidism, unspecified; I36.1 Nonrheumatic tricuspid (valve) insufficiency; I27.20 Pulmonary hypertension, unspecified; R19.7 Diarrhea, unspecified; D69.6 Thrombocytopenia, unspecified; D64.9 Anemia, unspecified; M06.9 Rheumatoid arthritis, unspecified
CPT/HCPCS: 36415; 71045-TC-FY; 71046-TC-FY; 74181-TC; 76700-TC; 76705-TC; 80048; 80053; 80076; 81003; 82105; 82140; 82172; 82247; 82272; 82465; 82550; 82728; 82947; 82962; 82977; 83010; 83036; 83516; 83540; 83550; 83615; 83735; 83880; 83883; 84100; 84443; 84450; 84460; 84478; 84484; 85025; 85044; 85610; 85730; 86038; 86140; 86704; 86706; 86708; 86803; 87045; 87046; 87177; 87186; 87205; 87209; 87324; 87338; 87340; 87449; 87493; 90688; 93005; 93010; 93306-TC; 93970-TC; 94640; 94761; 97116-GP; 97161-GP; 99283-25; G0008; J1644; J8610